=== PATIENT | female | born 1930 | race Hispanic/Latino ===

== ENCOUNTER 2016-06-17 08:41 | Day surgery (SDC) | payer MEDICARE, OTHER ==
[2016-04-23 11:15] VITALS: PULSE 60
[2016-06-10 09:59] VITALS: BMI 22.1
[2016-06-17] MEDS ORDERED: Propofol 10 mg/ml Inj (20 ML) ONE ×2 (10:42→11:14)
[2016-06-17] MEDS ORDERED: Sodium Chloride 0.9% 1,000 ML IV SCH (11:30)
[2016-06-17 11:47] VITALS: TEMP 97.8
[2016-06-17 12:02] VITALS: O2SAT 96
[2016-06-17 12:52] VITALS: BP 141/71; PULSE 70; RESP 18
== END 2016-06-17 13:37 | disposition home or self-care (01) ==
LOC: ENDO 08:41
PROVIDERS: ATTEND Internal Medicine Gastroenterology
DX: Z12.11 Encounter for screening for malignant neoplasm of colon (principal); K62.1 Rectal polyp; K57.30 Diverticulosis of large intestine without perforation or abscess without bleeding; K31.819 Angiodysplasia of stomach and duodenum without bleeding; K29.50 Unspecified chronic gastritis without bleeding; K44.9 Diaphragmatic hernia without obstruction or gangrene; K64.8 Other hemorrhoids; D50.9 Iron deficiency anemia, unspecified; I10 Essential (primary) hypertension; I25.10 Atherosclerotic heart disease of native coronary artery without angina pectoris; Z86.73 Personal history of transient ischemic attack (TIA), and cerebral infarction without residual deficits
CPT/HCPCS: 43239; 45380; 88305; 88342; J2001; J2704; J7040

== ENCOUNTER 2016-06-22 20:22 | Emergency (ER) | payer MEDICARE, OTHER ==
[2016-06-22 20:23] VITALS: PULSE 60; BMI 22.1
--- NOTE | 2016-06-22 22:17 | ED PDOC ---
Arrival/HPI - General Chief Complaint: GI Problem Time Seen by Provider: 06/22/16 21:10 Historian: Patient, Family (Son) - History of Present Illness Narrative History of Present Illness (Text): 06/22/16 22:12 Claudia Pritchett is an 86 year old female, whose past medical history includes GI bleed, CHF, CAD with stent placement, hypertension, COPD, TIA, diabetes, and GERD, who presents to the emergency department accompanied by son complaining of possible dark stool. Patient states her stools today looked dark and became concerned due to her past history of upper GI bleed and gastric ulcer. Son reports patient recently had an upper endoscopy and colonoscopy performed which were normal. The patient denies any fever, chills, chest pain, shortness of breath, abdominal pain, nausea, vomiting, diarrhea, urinary symptoms, back pain , neck pain, headache, dizziness, or any other complaints. Time/Duration: Other (today) Symptom Onset: Gradual Symptom Course: Unchanged Activities at Onset: Rest, Light Context: Home Past Medical History - Provider Review Nursing Documentation Reviewed: Yes - Infectious Disease Hx of Infectious Diseases: None - Reproductive Menopause: Yes - Cardiac Hx Pacemaker: No - Pulmonary Hx Respiratory Disorders: Yes Hx Asthma: Yes Hx Chronic Obstructive Pulmonary Disease (COPD): Yes Hx Emphysema: Yes Hx Pneumonia: Yes - Neurological Hx Paralysis: No - HEENT Hx HEENT Disorder: No - Renal Hx Renal Disorder: No - Endocrine/Metabolic Hx Endocrine Disorders: No - Hematological/Oncological Hx Blood Transfusions: Yes Hx Blood Transfusion Reaction: No - Integumentary Hx Dermatological Disorder: No - Musculoskeletal/Rheumatological Hx Musculoskeletal Disorders: No - Gastrointestinal Hx Gastrointestinal Disorders: Yes Hx Gastroesophageal Reflux: Yes - Genitourinary/Gynecological Hx Genitourinary Disorders: Yes Hx Hematuria: Yes - Psychiatric Hx Emotional Abuse: No Hx Physical Abuse: No Hx Substance Use: No - Past Surgical History Past Surgical History: No Previous - Surgical History Hx Eye Surgery: Yes - Anesthesia Hx Anesthesia Reactions: No Hx Malignant Hyperthermia: No - Suicidal Assessment Feels Threatened In Home Enviroment: No Family/Social History - Physician Review Nursing Documentation Reviewed: Yes Family/Social History: No Known Family HX Smoking Status: Former Smoker Hx Alcohol Use: No Hx Substance Use: No Allergies/Home Meds Allergies/Adverse Reactions: Allergies No Known Allergies Allergy (Verified 04/23/16 11:25) Home Medications: Home Meds Medication Instructions Recorded Confirmed Aspirin [Ecotrin] 81 mg PO DAILY 10/07/15 06/22/16 Atorvastatin Calcium [Lipitor] 20 mg PO DAILY 10/07/15 06/22/16 Furosemide [Lasix] 1 mg PO DAILY 10/07/15 06/22/16 Lisinopril [Zestril] 2.5 mg PO DAILY 12/08/15 06/22/16 Digoxin [Lanoxin] 0.125 mg PO DAILY 04/23/16 06/22/16 Albuterol/Ipratropium [Duoneb 3 1 inh INH Q6 PRN 05/19/16 06/22/16 mg/0.5 mg (3 ml) UD] Montelukast [Singulair] 10 tab PO DAILY 05/19/16 06/22/16 Esomeprazole Magnesium [Nexium] 40 mg PO DAILY 06/17/16 06/22/16 Review of Systems - Physician Review All systems were reviewed & negative as marked: Yes - Review of Systems Constitutional: Normal. absent: Fevers Eyes: Normal ENT: Normal Respiratory: Normal. absent: SOB, Cough Cardiovascular: Normal. absent: Chest Pain Gastrointestinal: Other (+dark stools). absent: Abdominal Pain, Diarrhea, Nausea, Vomiting Genitourinary Female: Normal. absent: Dysuria, Frequency, Hematuria, Urine Output Changes Musculoskeletal: Normal. absent: Back Pain, Neck Pain Skin: Normal. absent: Rash Neurological: Normal. absent: Headache, Dizziness Endocrine: Normal Hemo/Lymphatic: Normal Psychiatric: Normal Physical Exam Vital Signs Reviewed: Yes Vital Signs Pulse Resp BP Pulse Ox 06/22/16 22:46 72 16 169/74 H 94 L Temperature: Afebrile Blood Pressure: Hypertensive Pulse: Regular Respiratory Rate: Normal Appearance: Positive for: Well-Appearing, Non-Toxic, Comfortable Pain Distress: None Mental Status: Positive for: Alert and Oriented X 3 - Systems Exam Head: Present: Atraumatic, Normocephalic Pupils: Present: PERRL Extroacular Muscles: Present: EOMI Conjunctiva: Present: Normal Mouth: Present: Moist Mucous Membranes Neck: Present: Normal Range of Motion Respiratory/Chest: Present: Clear to Auscultation, Good Air Exchange. No: Respiratory Distress, Accessory Muscle Use Cardiovascular: Present: Regular Rate and Rhythm, Normal S1, S2. No: Murmurs Abdomen: Present: Normal Bowel Sounds. No: Tenderness, Distention, Peritoneal Signs Rectal: Present: Other (Brown stool Guaiac negative). No: Occult Blood, Rectal Tenderness, Gross Blood, Hemorrhoids Back: Present: Normal Inspection Upper Extremity: Present: Normal Inspection. No: Cyanosis, Edema Lower Extremity: Present: Normal Inspection. No: Edema Neurological: Present: GCS=15, CN II-XII Intact, Speech Normal Skin: Present: Warm, Dry, Normal Color. No: Rashes Psychiatric: Present: Alert, Oriented x 3, Normal Insight, Normal Concentration Medical Decision Making ED Course and Treatment: 06/22/16 22:12 Impression: 86 year old female complaining of dark stools. Differential Diagnosis included but are not limited to: Plan: -- Labs -- Reassess and disposition Prior Visits: Notes and results from previous visits were reviewed. On 04/23/2016, pt was seen in the ED for 1 episode of dark, black stool and discharged home. Progress Notes: - Lab Interpretations Lab Results: 06/22/16 22:40 Lab Results 06/22/16 22:40: WBC 7.3 D, RBC 3.96, Hgb 12.3, Hct 37.6, MCV 94.9, MCH 31.1, MCHC 32.7, RDW 13.2, Plt Count 200, MPV 11.3 H 06/22/16 22:40: PT 11.9 H, INR 1.10 H, APTT 26.8 I have reviewed the lab results: Yes - Scribe Statement The provider has reviewed the documentation as recorded by the Tyesha Montgomery Provider Attestation: All medical record entries made by the Trixieibsyed were at my direction and personally dictated by me. I have reviewed the chart and agree that the record accurately reflects my personal performance of the history, physical exam, medical decision making, and the department course for this patient. I have also personally directed, reviewed, and agree with the discharge instructions and disposition. Disposition/Present on Arrival - Present on Arrival Any Indicators Present on Arrival: No History of DVT/PE: No History of Uncontrolled Diabetes: No Urinary Catheter: No History of Decub. Ulcer: No History Surgical Site Infection Following: None - Disposition Have Diagnosis and Disposition been Completed?: Yes Diagnosis: Normal exam Disposition: HOME/ ROUTINE Disposition Time: 23:57 Patient Plan: Discharge Patient Problems: Current Active Problems Problem Status Onset Normal exam Acute Condition: GOOD Discharge Instructions (ExitCare): Normal Exam (ED) Additional Instructions: Follow up with your doctor this week Referrals: Pascual Sierra MD [Primary Care Provider] - Follow up with primary
[2016-06-22 22:47] VITALS: PULSE 72; RESP 16
[2016-06-22 23:03] LABS: HEMATOCRIT 37.6 % (36.0-48.0); MEAN CELL VOLUME 94.9 fL (80.0-105.0); MEAN CORPUSCULAR HEMOGLOBIN 31.1 pg (25.0-35.0); MEAN CORPUSCULAR HGB CONC 32.7 g/dl (31.0-37.0); MEAN PLATELET VOLUME 11.3 fl (7.0-11.0); RED CELL DISTRIBUTION WIDTH 13.2 % (11.5-14.5); WHITE BLOOD COUNT 7.3 10^3/ul (4.5-11.0)
[2016-06-22 23:28] LABS: INR 1.1 (0.93-1.08); PARTIAL THROMBOPLASTIN TIME 26.8 Seconds (23.7-30.8)
[2016-06-23] MEDS ORDERED: Albuterol-Ipratrop 3 mg / 0.5 (3 ml) UD ONE (00:10)
[2016-06-23 01:27] VITALS: BP 163/84; O2SAT 95
== END 2016-06-23 01:28 | disposition home or self-care (01) ==
LOC: ED 20:22
DX: Z00.00 Encounter for general adult medical examination without abnormal findings (principal); I25.10 Atherosclerotic heart disease of native coronary artery without angina pectoris; I10 Essential (primary) hypertension; Z87.891 Personal history of nicotine dependence

== ENCOUNTER 2016-07-29 13:05 | Emergency (ER) | payer MEDICARE ==
[2016-07-29 13:05] VITALS: PULSE 60; BMI 22.1
--- NOTE | 2016-07-29 13:48 | ED PDOC ---
Arrival/HPI - General Chief Complaint: Upper Extremity Problem/Injury Time Seen by Provider: 07/29/16 13:27 - History of Present Illness Narrative History of Present Illness (Text): 07/29/16 13:50 86 y/o F w/ PMHx of Asthma, COPD, Emphysema, and GERD presents to the ED c/o R shoulder pain. Pt states pain started in May after cleaning her house. Pt was told by her PMD to get a Cortisol injection. Pt believes the person was incompetent b/c pain has increased since the injection. Pt reports decreased ROM in shoulder w/ no problems in the elbow or wrist. Pt came to the ED specifically to receive a cortisol injection. On presentation to triage, pt was SOB. Pt states the heat makes her SOB. Pt denies CP, palpitations, pre-syncope. pt admits to chronic cough w/ clear sputum production. (Meg Scales) Past Medical History - Provider Review Nursing Documentation Reviewed: Yes - Infectious Disease Hx of Infectious Diseases: None - Cardiac Hx Pacemaker: No - Pulmonary Hx Respiratory Disorders: Yes Hx Asthma: Yes Hx Chronic Obstructive Pulmonary Disease (COPD): Yes Hx Emphysema: Yes Hx Pneumonia: Yes - Neurological Hx Paralysis: No - HEENT Hx HEENT Disorder: No - Renal Hx Renal Disorder: No - Endocrine/Metabolic Hx Endocrine Disorders: No - Hematological/Oncological Hx Blood Transfusions: Yes Hx Blood Transfusion Reaction: No - Integumentary Hx Dermatological Disorder: No - Musculoskeletal/Rheumatological Hx Musculoskeletal Disorders: No - Gastrointestinal Hx Gastrointestinal Disorders: Yes Hx Gastroesophageal Reflux: Yes - Genitourinary/Gynecological Hx Genitourinary Disorders: Yes Hx Hematuria: Yes - Psychiatric Hx Emotional Abuse: No Hx Physical Abuse: No Hx Substance Use: No - Past Surgical History Past Surgical History: No Previous - Surgical History Hx Eye Surgery: Yes - Anesthesia Hx Anesthesia Reactions: No Hx Malignant Hyperthermia: No - Suicidal Assessment Feels Threatened In Home Enviroment: No Family/Social History - Physician Review Nursing Documentation Reviewed: Yes Family/Social History: No Known Family HX Smoking Status: Former Smoker Hx Alcohol Use: No Hx Substance Use: No Allergies/Home Meds Allergies/Adverse Reactions: Allergies No Known Allergies Allergy (Verified 04/23/16 11:25) Home Medications: Home Meds Medication Instructions Recorded Confirmed Aspirin [Ecotrin] 81 mg PO DAILY 10/07/15 06/22/16 Atorvastatin Calcium [Lipitor] 20 mg PO DAILY 10/07/15 06/22/16 Furosemide [Lasix] 1 mg PO DAILY 10/07/15 06/22/16 Lisinopril [Zestril] 2.5 mg PO DAILY 12/08/15 06/22/16 Digoxin [Lanoxin] 0.125 mg PO DAILY 04/23/16 06/22/16 Albuterol/Ipratropium [Duoneb 3 1 inh INH Q6 PRN 05/19/16 06/22/16 mg/0.5 mg (3 ml) UD] Montelukast [Singulair] 10 tab PO DAILY 05/19/16 06/22/16 Esomeprazole Magnesium [Nexium] 40 mg PO DAILY 06/17/16 06/22/16 Review of Systems - Review of Systems Constitutional: absent: Fevers Cardiovascular: absent: Chest Pain Physical Exam Vital Signs Reviewed: Yes Temperature: Afebrile Blood Pressure: Normal Pulse: Tachycardic Respiratory Rate: Normal Appearance: Positive for: Well-Appearing, Comfortable Pain Distress: None Mental Status: Positive for: Alert and Oriented X 3 - Systems Exam Head: Present: Atraumatic, Normocephalic Pupils: Present: PERRL Extroacular Muscles: Present: EOMI Mouth: Present: Moist Mucous Membranes Neck: Present: Normal Range of Motion Respiratory/Chest: Present: Clear to Auscultation, Good Air Exchange. No: Respiratory Distress, Accessory Muscle Use Cardiovascular: Present: Regular Rate and Rhythm, Normal S1, S2. No: Murmurs Back: Present: Other (kyphosis) Upper Extremity: Present: Other (decreased ROM in flexion, extension, abduction of R shoulder) Lower Extremity: Present: Normal Inspection Neurological: Present: GCS=15, Speech Normal Skin: Present: Warm, Dry, Normal Color Psychiatric: Present: Alert, Oriented x 3, Normal Insight, Normal Concentration Vital Signs Temp Pulse Resp BP Pulse Ox 07/29/16 14:17 98 H 18 116/65 95 07/29/16 13:11 97.6 F 105 H 18 114/66 96 Medical Decision Making - RAD Interpretation Skinner Pelts: Radiologist (negative for fracture of dislocation.) ED Course and Treatment: Patient Seen With Resident: In agreement with resident note. Patient was seen and evaluated with resident, came up with plan and treatment together.. (Sunny Flores) 07/29/16 13:59 86 y/o F w/ R shoulder pain and COPD w/ chronic cough - Duoneb - R shoulder Xray - Tylenol 07/29/16 14:55 Pt stated Sx unchanged. No improvement in pain or cough w/ Tx provided. Shoulder XR negative for fracture or dislocation. 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 Pt not asking for any further pain medication. Referral for orthopedics provided Pt cleared for discharge w/ instructions to follow up with PMD w/in 1 week. (Meg Scales) - RAD Interpretation Radiology Orders: 07/29/16 13:49 SHOULDER RIGHT [RAD] Stat - Medication Orders Current Medication Orders: Discontinued Medications Acetaminophen (Tylenol 325mg Tab) 650 mg PO STAT STA Stop: 07/29/16 14:02 Last Admin: 07/29/16 14:44 Dose: 650 mg Albuterol/Ipratropium (Duoneb 3 Mg/0.5 Mg (3 Ml) Ud) 3 ml IH STAT STA Stop: 07/29/16 13:50 Last Admin: 07/29/16 14:32 Dose: 3 ml Disposition/Present on Arrival - Present on Arrival Any Indicators Present on Arrival: No History of DVT/PE: No History of Uncontrolled Diabetes: No Urinary Catheter: No History of Decub. Ulcer: No History Surgical Site Infection Following: None - Disposition Have Diagnosis and Disposition been Completed?: Yes Disposition Time: 15:25 Patient Plan: Discharge - Disposition Diagnosis: Chronic right shoulder pain Disposition: HOME/ ROUTINE Condition: GOOD Discharge Instructions (ExitCare): Osteoarthritis (ED), RICE Therapy (ED) Additional Instructions: follow up within 1 week with primary medical doctor return to ED with any new or worsening symptoms. Referrals: Pascual Sierra MD [Primary Care Provider] - Follow up with primary Anant Cruz MD [Staff Provider] - Follow up with primary [facility] [Outside] - Follow up with primary
[2016-07-29] MEDS ORDERED: Albuterol-Ipratrop 3 mg / 0.5 (3 ml) UD IH STA (13:49)
--- NOTE | 2016-07-29 14:54 | RAD ---
PROCEDURE: Radiographs of the Right Shoulder HISTORY: pain; decreased ROM COMPARISON: No prior. FINDINGS: BONES: There is no acute fracture or bone destruction. There is diffuse bone demineralization. JOINTS: Mild degenerative osteoarthritis. SOFT TISSUES: Normal. OTHER FINDINGS: None. IMPRESSION: No acute fracture or dislocation. Mild degenerative osteoarthrosis in the acromioclavicular and glenohumeral joints.
[2016-07-29 15:07] VITALS: O2SAT 96
[2016-07-29] MEDS ORDERED: Oxycodone/Acetaminophen 5/325 mg Tab PO STA (15:07)
[2016-07-29 15:25] VITALS: BP 110/50; RESP 16; TEMP 98.9
[2016-07-29 15:43] VITALS: PULSE 70
--- NOTE | 2016-07-29 22:26 | CARD ---
APPROVED REPORT EKG Measurement Heart [id number] <Conclusion> Sinus tachycardia Nonspecific ST abnormality Abnormal ECG
== END 2016-07-29 15:42 | disposition home or self-care (01) ==
LOC: ED 13:05
DX: M25.511 Pain in right shoulder (principal); G89.29 Other chronic pain

== ENCOUNTER 2016-12-26 10:26 | Inpatient (IN) | payer MEDICARE, OTHER ==
[2016-12-26 10:34] VITALS: BMI 21.9
--- NOTE | 2016-12-26 10:51 | ED PDOC ---
Arrival/HPI - General Chief Complaint: Respiratory Distress Time Seen by Provider: 12/26/16 10:30 Historian: Patient - History of Present Illness Narrative History of Present Illness (Text): 12/26/16 10:48 An 86 year old female, whose past medical history includes Asthma, COPD, Emphysema, and GERD, presents to the emergency department via EMS with shortness of breath since this morning. Patient received SOLU-Medrol and nebulizer in route to hospital. The patient notes that she has been coughing up white phlegm. The patient denies fevers, chills, headache, dizziness, chest pain , dyspnea on exertion, abdominal pain, nausea, vomiting, diarrhea, back pain, neck pain, urinary/bowel changes, or any other complaint. PMD: Dr. Garner Time/Duration: Other (This Morning) Symptom Onset: Sudden Symptom Course: Unchanged Activities at Onset: Rest, Light Context: Home Past Medical History - Provider Review Nursing Documentation Reviewed: Yes - Infectious Disease Hx of Infectious Diseases: None - Reproductive Menopause: Yes - Cardiac Hx Hypertension: Yes Hx Pacemaker: No - Pulmonary Hx Respiratory Disorders: Yes Hx Asthma: Yes Hx Chronic Obstructive Pulmonary Disease (COPD): Yes Hx Emphysema: Yes Hx Pneumonia: Yes - Neurological Hx Paralysis: No - HEENT Hx HEENT Disorder: No - Renal Hx Renal Disorder: No - Endocrine/Metabolic Hx Endocrine Disorders: No - Hematological/Oncological Hx Blood Transfusions: Yes Hx Blood Transfusion Reaction: No - Integumentary Hx Dermatological Disorder: No - Musculoskeletal/Rheumatological Hx Musculoskeletal Disorders: No - Gastrointestinal Hx Gastrointestinal Disorders: Yes Hx Gastroesophageal Reflux: Yes - Genitourinary/Gynecological Hx Genitourinary Disorders: Yes Hx Hematuria: Yes - Psychiatric Hx Emotional Abuse: No Hx Physical Abuse: No Hx Substance Use: No - Past Surgical History Past Surgical History: No Previous - Surgical History Hx Eye Surgery: Yes - Anesthesia Hx Anesthesia: No Hx Anesthesia Reactions: No Hx Malignant Hyperthermia: No - Suicidal Assessment Feels Threatened In Home Enviroment: No Family/Social History - Physician Review Nursing Documentation Reviewed: Yes Family/Social History: No Known Family HX Smoking Status: Former Smoker Hx Alcohol Use: No Hx Substance Use: No Allergies/Home Meds Allergies/Adverse Reactions: Allergies No Known Allergies Allergy (Verified 12/26/16 10:41) Home Medications: Home Meds Medication Instructions Recorded Confirmed Aspirin [Ecotrin] 81 mg PO DAILY 10/07/15 12/26/16 Atorvastatin Calcium [Lipitor] 20 mg PO DIN 10/07/15 12/26/16 Furosemide [Lasix] 20 mg PO DAILY 10/07/15 12/26/16 Digoxin [Lanoxin] 0.125 mg PO DAILY 04/23/16 12/26/16 Albuterol/Ipratropium [Duoneb 3 1 inh INH Q6 PRN 05/19/16 12/26/16 mg/0.5 mg (3 ml) UD] Montelukast [Singulair] 10 tab PO DAILY 05/19/16 12/26/16 Glimepiride [Amaryl] 1 mg PO DAILY 12/26/16 12/26/16 Pantoprazole [Protonix EC Tab] 40 mg PO DAILY 12/26/16 12/26/16 Review of Systems - Physician Review All systems were reviewed & negative as marked: Yes - Review of Systems Constitutional: absent: Fevers, Night Sweats ENT: absent: Sore Throat Respiratory: SOB, Cough, Sputum (White sputum ) Cardiovascular: absent: Chest Pain, BANKS Gastrointestinal: absent: Abdominal Pain, Stool Changes, Diarrhea, Nausea, Vomiting Genitourinary Female: absent: Urine Output Changes Musculoskeletal: absent: Back Pain, Neck Pain Neurological: absent: Headache, Dizziness Physical Exam Vital Signs Reviewed: Yes Vital Signs Temp Pulse Resp BP Pulse Ox 12/26/16 11:04 18 12/26/16 10:40 98.1 F 78 18 121/65 95 Temperature: Afebrile Blood Pressure: Normal Pulse: Regular Respiratory Rate: Normal Appearance: Positive for: Well-Appearing, Non-Toxic, Comfortable Pain Distress: None Mental Status: Positive for: Alert and Oriented X 3 - Systems Exam Head: Present: Atraumatic, Normocephalic Pupils: Present: PERRL Extroacular Muscles: Present: EOMI Conjunctiva: Present: Normal Mouth: Present: Moist Mucous Membranes Neck: Present: Normal Range of Motion Respiratory/Chest: Present: Decreased Breath Sounds (Diminished breath sounds bilaterally) Cardiovascular: Present: Regular Rate and Rhythm, Normal S1, S2. No: Murmurs Abdomen: Present: Normal Bowel Sounds. No: Tenderness, Distention, Peritoneal Signs Back: Present: Normal Inspection Upper Extremity: Present: Normal Inspection. No: Cyanosis, Edema Lower Extremity: Present: Normal Inspection. No: Edema Neurological: Present: GCS=15, CN II-XII Intact, Speech Normal Skin: Present: Warm, Dry, Normal Color. No: Rashes Psychiatric: Present: Alert, Oriented x 3, Normal Insight, Normal Concentration Medical Decision Making ED Course and Treatment: 12/26/16 10:54 Impression: An 85 year old female presents to the emergency department for shortness of breath since this morning. Plan: -- EKG -- Chest X-ray -- Labs -- Urinalysis -- Duoneb -- Reassess and disposition Prior Visits: Notes and results from previous visits were reviewed. Patient was last seen in the emergency department on 07/29/2016 for right shoulder pain. The patient was discharged home and advised to follow up with her PMD. Progress Notes: EKG: Ordered, reviewed, and independently interpreted the EKG. Rate : 81 BPM Rhythm : NSR Interpretation : PVCs CHEST X-RAY Dictator : Chadd Crabtree MD Report Date : 12/26/2016 11:14:41 IMPRESSION: No active disease. Hiatal hernia 12/26/16 11:34 la mildly elevated, does not meet sirs criteria, not code sepsis. pt states symptosm improving but persistent. pt persistently dimnished, wiht wheezing, needs iv steriods, admission. dr flores, covering dr herrera accepts - Lab Interpretations Lab Results: 12/26/16 10:51 12/26/16 10:51 Lab Results 12/26/16 10:51: pO2 26 L, VBG pH 7.34, VBG pCO2 65.0 H, VBG HCO3 35.1 H, VBG Total CO2 37.1 H, VBG O2 Sat (Calc) 49.2, VBG Base Excess 7.0 H, VBG Potassium 4.0, Sodium 144.0, Chloride 105.0, Glucose 152 H, Lactate 2.7 H, FiO2 21.0, Venous Blood Potassium 4.0 12/26/16 10:51: Sodium 144, Chloride 103, Potassium 4.1, Carbon Dioxide 34 H, Anion Gap 11, BUN 21, Creatinine 0.8, Est GFR ( Amer) > 60, Est GFR (Non- Af Amer) > 60, Random Glucose 152 H, Calcium 9.9, Magnesium 2.1, Total Bilirubin 0.9, AST 25, ALT 30, Alkaline Phosphatase 113, Lactate Dehydrogenase 407, Total Creatine Kinase 28 L, Troponin I < 0.01, NT-Pro-B Natriuret Pep 99.9 , Total Protein 7.0, Albumin 4.0, Globulin 3.0, Albumin/Globulin Ratio 1.3 12/26/16 10:51: PT 11.8, INR 1.07, APTT 30.0 12/26/16 10:51: WBC 7.0, RBC 4.43, Hgb 14.2, Hct 43.1, MCV 97.3, MCH 32.1, MCHC 32.9, RDW 12.7, Plt Count 171, MPV 12.1 H, Gran % 46.8 L, Lymph % (Auto) 35.8 H , [place] % (Auto) 8.4 H, Eos % (Auto) 8.4 H, Baso % (Auto) 0.6, Gran # 3.29, Lymph # 2.5, [place] # 0.6, Eos # 0.6, Baso # 0.04 12/26/16 10:51: Digoxin 1.2 I have reviewed the lab results: Yes - RAD Interpretation Radiology Orders: 12/26/16 10:43 CHEST PORTABLE [RAD] Stat - EKG Interpretation Interpreted by ED Physician: Yes Type: 12 lead EKG - Medication Orders Current Medication Orders: Acetaminophen (Tylenol 325mg Tab) 325 mg PO Q6H PRN PRN Reason: Pain, Mild (1-3) Albuterol/Ipratropium (Duoneb 3 Mg/0.5 Mg (3 Ml) Ud) 3 ml IH [id number] CATHLEEN Albuterol/Ipratropium (Duoneb 3 Mg/0.5 Mg (3 Ml) Ud) 3 ml IH Q2H PRN PRN Reason: Shortness of Breath Aspirin (Ecotrin) 81 mg PO DAILY CATHLEEN Atorvastatin Calcium (Lipitor) 20 mg PO DIN CATHLEEN Azithromycin (Zithromax) 250 mg PO DAILY CATHLEEN PRN Reason: Protocol Stop: 12/31/16 10:01 Benzonatate (Tessalon Perles) 100 mg PO TID PRN PRN Reason: Cough Digoxin (Lanoxin) 0.125 mg PO DAILY@1400 CATHLEEN Furosemide (Lasix) 20 mg PO DAILY CATHLEEN Insulin Human Lispro (Humalog Low) 0 units SC ACHS CATHLEEN PRN Reason: Protocol Pantoprazole Sodium (Protonix Ec Tab) 40 mg PO ACB CATHLEEN Prednisone (Prednisone Tab) 40 mg PO BID CATHLEEN Discontinued Medications Albuterol/Ipratropium (Duoneb 3 Mg/0.5 Mg (3 Ml) Ud) 3 ml IH Q15M CATHLEEN Stop: 12/26/16 11:16 Last Admin: 12/26/16 11:18 Dose: 3 ml Azithromycin (Zithromax) 500 mg PO ONCE ONE Stop: 12/26/16 13:46 - Scribe Statement The provider has reviewed the documentation as recorded by the Tyesha Hunt Provider Scribe Attestation: All medical record entries made by the Scribe were at my direction and personally dictated by me. I have reviewed the chart and agree that the record accurately reflects my personal performance of the history, physical exam, medical decision making, and the department course for this patient. I have also personally directed, reviewed, and agree with the discharge instructions and disposition. Disposition/Present on Arrival - Present on Arrival Any Indicators Present on Arrival: No History of DVT/PE: No History of Uncontrolled Diabetes: No Urinary Catheter: No History of Decub. Ulcer: No History Surgical Site Infection Following: None - Disposition Have Diagnosis and Disposition been Completed?: Yes Diagnosis: COPD exacerbation Disposition: HOSPITALIZED Disposition Time: 11:36 Patient Problems: Current Active Problems Problem Status Onset COPD exacerbation Acute Condition: FAIR
[2016-12-26] MEDS: Albuterol-Ipratrop 3 mg / 0.5 (3 ml) UD IH SCH ×5 (10:54→18:59)
[2016-12-26 10:59] LABS: BASO # 0.04 K/mm3 (0.0-2.0); BASO % 0.6 % (0.0-3.0); EOS # 0.6 (0.0-0.7); EOS % 8.4 % (1.5-5.0); GRAN # 3.29 (1.4-6.5); GRAN % 46.8 % (50.0-68.0); HEMATOCRIT 43.1 % (36.0-48.0); LYMPH # 2.5 (1.2-3.4); LYMPH % 35.8 % (22.0-35.0); MEAN CELL VOLUME 97.3 fl (80.0-105.0); MEAN CORPUSCULAR HEMOGLOBIN 32.1 pg (25.0-35.0); MEAN CORPUSCULAR HGB CONC 32.9 g/dl (31.0-37.0); MEAN PLATELET VOLUME 12.1 fl (7.0-11.0); MONO # 0.6 (0.1-0.6); MONO % 8.4 % (1.0-6.0); RED CELL DISTRIBUTION WIDTH 12.7 % (11.5-14.5)
[2016-12-26 11:00] LABS: VENOUS BLOOD PH 7.34 (7.32-7.43)
[2016-12-26 11:12] LABS: INR 1.07 (0.93-1.08)
[2016-12-26 11:13] LABS: ALB/GLOB RATIO 1.3 (1.1-1.8); ALKALINE PHOSPHATASE 113 U/L (38-126); ALT/SGPT 30 U/L (7-56); AST/SGOT 25 U/L (14-36); BILIRUBIN,TOTAL 0.9 mg/dL (0.2-1.3); BLOOD UREA NITROGEN 21 mg/dL (7-21); CALCIUM 9.9 mg/dL (8.4-10.5); CARBON DIOXIDE 34 mmol/L (21-33); CHLORIDE 103 mmol/L (98-107); GFR AFRICAN-AMERICAN > 60; GLUCOSE,RANDOM 152 mg/dL (70-110); MAGNESIUM 2.1 mg/dL (1.7-2.2); POTASSIUM 4.1 mmol/L (3.6-5.0); SODIUM 144 mmol/L (132-148)
--- NOTE | 2016-12-26 11:16 | RAD ---
HISTORY: sob COMPARISON: 02/28/2016 FINDINGS: LUNGS: No active pulmonary disease. PLEURA: No significant pleural effusion identified, no pneumothorax apparent. CARDIOVASCULAR: Normal. OSSEOUS STRUCTURES: No significant abnormalities. VISUALIZED UPPER ABDOMEN: There is a moderate to large hiatal hernia measuring 8.3 cm in diameter OTHER FINDINGS: None. IMPRESSION: No active disease. Hiatal hernia
[2016-12-26 11:25] LABS: TROPONIN I < 0.01 ng/mL
[2016-12-26 14:14] LABS: ARTERIAL BLOOD GAS HCO3 30.6 mmol/L (21-28); ARTERIAL BLOOD GAS PH 7.47 (7.35-7.45)
[2016-12-26 14:53] LABS: PH,URINE 5.5 (4.7-8.0); URINE BILIRUBIN NEGATIVE (NEGATIVE); URINE BLOOD TRACE-INTACT (NEGATIVE); URINE GLUCOSE (UA) 100 mg/dL (NEGATIVE); URINE KETONE TRACE mg/dL (NEGATIVE); URINE LEUKOCYTE ESTERASE SMALL Leu/uL (NEGATIVE); URINE PROTEIN TRACE mg/dL (<30 mg/dL); URINE UROBILINOGEN 0.2 E.U./dL (<1 E.U./dL)
--- NOTE | 2016-12-26 15:00 | CP.PCM.HP ---
<Aroldo Holt - Last Filed: 12/26/16 14:54> History of Present Illness - History of Present Illness History of Present Illness: CC: SOB HPI: Pt is a 86 y/o female w/ a PMHx of COPD, CHF, emphysema, asthma, and GERD comes in c/o SOB which started earlier this morning while at home. Patient reports while administering a nebulizer treatment the patient began to experience her symptoms. Patient reports leading up to this AM she felt asymptomatic. Of note in route to hospital patient recieved a duoneb treatment and one time dose of steroids. Patient reports at time of interview improvement in her symptoms from onset. Patient indicates she is compliant with her medications. Patient reports one previous history of COPD exacerbation with in the past 2 years. She denies ever requiring intubation for her respiratory disease. Pt states that the SOB has been intermittent and resolves on it's own w/ rest. Pt also c/o a chronic productive cough w/ white sputum. Pt denies any CP, fever, chills, nausea, vomiting, constipation, diarrhea, hematemesis, hematuria, dizziness, recent trauma, recent illnesses or anxiety. Pt also states that she lives in a elderly home, and thus, is often exposed to sick contacts. PMD: Dr. Mariela Garner PMHx: Asthma, Emphysema, COPD, IA. CHF, Hiatal hernia, GERD, DM II PSHx: EGD and Colonoscopy w/ biopsy Social History: Pt denies any illicit drug use or EtOH use. Pt used to smoke 3 PPD, but quit smoking 11 years ago. Pt smoked for 54 years Meds: Gimperide, Furosemide, Atorvastatin, Protonix, Digoxin, Monteleukast, ASA , Duoneb Allergies: NKDA Present on Admission - Present on Admission Any Indicators Present on Admission: No Review of Systems - Review of Systems Review of Systems: 12 point review of systems benign other than mentioned in HPI Past Patient History - Infectious Disease Hx of Infectious Diseases: None - Past Social History Smoking Status: Former Smoker Alcohol: None Drugs: Denies - CARDIAC Hx Hypertension: Yes Hx Pacemaker: No - PULMONARY Hx Respiratory Disorders: Yes Hx Asthma: Yes Hx Chronic Obstructive Pulmonary Disease (COPD): Yes Hx Emphysema: Yes Hx Pneumonia: Yes - NEUROLOGICAL Hx Paralysis: No - HEENT Hx HEENT Problems: No - RENAL Hx Chronic Kidney Disease: No - ENDOCRINE/METABOLIC Hx Endocrine Disorders: No - HEMATOLOGICAL/ONCOLOGICAL Hx Blood Transfusions: Yes Hx Blood Transfusion Reaction: No - INTEGUMENTARY Hx Dermatological Problems: No - MUSCULOSKELETAL/RHEUMATOLOGICAL Hx Musculoskeletal Disorders: No - GASTROINTESTINAL Hx Gastrointestinal Disorders: Yes Hx Gastroesophageal Reflux: Yes - GENITOURINARY/GYNECOLOGICAL Hx Genitourinary Disorders: Yes Hx Hematuria: Yes - PSYCHIATRIC Hx Emotional Abuse: No Hx Physical Abuse: No Hx Substance Use: No - SURGICAL HISTORY Hx Eye Surgery: Yes - ANESTHESIA Hx Anesthesia: No Hx Anesthesia Reactions: No Hx Malignant Hyperthermia: No Meds Allergies/Adverse Reactions: Allergies Allergy/AdvReac Type Severity Reaction Status Date / Time No Known Allergies Allergy Verified 12/26/16 10:41 Physical Exam - Constitutional Appears: Well Additional comments: Pt appears stated age, no acute distress, speaking in full sentences requiring no supplemental O2 with O2 sat >89% - Head Exam Head Exam: ATRAUMATIC, NORMAL INSPECTION - Eye Exam Eye Exam: EOMI, PERRL - ENT Exam ENT Exam: Mucous Membranes Dry - Neck Exam Neck exam: Positive for: Full Rom. Negative for: Lymphadenopathy - Respiratory Exam Respiratory Exam: Decreased Breath Sounds, Rhonchi (miminal left sided), NORMAL BREATHING PATTERN. absent: Prolonged Expiratory Phase, Wheezes, Respiratory Distress - Cardiovascular Exam Cardiovascular Exam: REGULAR RHYTHM, +S1, +S2. absent: JVD, Systolic Murmur - GI/Abdominal Exam GI & Abdominal Exam: Normal Bowel Sounds, Soft. absent: Guarding, Mass, Tenderness - Extremities Exam Extremities exam: Positive for: full ROM, normal inspection, pedal pulses present. Negative for: calf tenderness, pedal edema - Back Exam Back exam: NORMAL INSPECTION. absent: CVA tenderness (L), CVA tenderness (R) - Neurological Exam Neurological exam: Alert, CN II-XII Intact, Oriented x3 - Psychiatric Exam Psychiatric exam: Normal Affect, Normal Mood - Skin Skin Exam: Dry, Intact, Normal Color, Warm Results - Vital Signs Recent Vital Signs: Last Vital Signs Temp 98.1 F 12/26/16 14:29 Pulse 92 H 12/26/16 14:29 Resp 18 12/26/16 14:29 BP 142/71 12/26/16 14:29 Pulse Ox 96 12/26/16 14:29 - Labs Result Diagrams: 12/26/16 10:51 12/26/16 10:51 Labs: Laboratory Results - last 24 hr 12/26/16 14:12 pCO2 42 pO2 55.0 L HCO3 30.6 H ABG pH 7.47 H ABG Total CO2 31.9 H ABG O2 Saturation 94.2 L ABG Base Excess 6.2 H ABG Potassium 3.0 L Sodium 142.0 Chloride 106.0 Glucose 279 H Lactate 1.8 FiO2 21.0 Arterial Blood Potassium 3.0 L Assessment & Plan - Assessment and Plan (Free Text) Assessment: Patient is a 86 year old female with PMH sig for CAD s/p stenet, COPD, TIA, DM2 , GERD, and CHF who presents to [facility] via EMS complaining of shortness of breath. Patient is evaluated to have COPD exacerbation with elevation of lactic acid. Patient is admitted for observation. Plan: 1. COPD exacerbation - Hx of COPD, Afebrile, productive white phlegm, no leukocytosis. elevated lactate - Patient compliant with medications at home - Duoneb Q6H and PRN - Solumedrol IV 40mg BID - Azithromycin - tessalon pearls prn cough - O2 NC 2L prn with goal SaO2 88-92% - Repeat ABG with shock panel 2. DM2 - Holding home meds - ISS low - ACHS 3. Hx CAD s/p stents - Aspirin 81mg - Statin 4. GERD - Protonix GI PPX: Protonix DVT ppx: SCDs Case and plan discussed with attending - Date & Time Date: 12/26/16 Time: 14:56 <Garfield Antunez - Last Filed: 12/26/16 15:18> Results - Vital Signs Recent Vital Signs: Last Vital Signs Temp 98.1 F 12/26/16 14:29 Pulse 92 H 12/26/16 14:29 Resp 18 12/26/16 14:29 BP 142/71 12/26/16 14:29 Pulse Ox 96 12/26/16 14:29 - Labs Result Diagrams: 12/26/16 10:51 12/26/16 10:51 Labs: Laboratory Results - last 24 hr 12/26/16 12/26/16 14:12 14:40 pCO2 42 pO2 55.0 L HCO3 30.6 H ABG pH 7.47 H ABG Total CO2 31.9 H ABG O2 Saturation 94.2 L ABG Base Excess 6.2 H ABG Potassium 3.0 L Sodium 142.0 Chloride 106.0 Glucose 279 H Lactate 1.8 FiO2 21.0 Arterial Blood Potassium 3.0 L Urine Color Yellow Urine Appearance Sl cloudy Urine pH 5.5 Ur Specific [place] 1.025 Urine Protein Trace H Urine Glucose (UA) 100 H Urine Ketones Trace H Urine Blood Trace-intact H Urine Nitrate Negative Urine Bilirubin Negative Urine Urobilinogen 0.2 Ur Leukocyte Esterase Small H Urine RBC 0 - 2 Urine WBC 5 - 10 Ur Epithelial Cells 6 - 8 Urine Bacteria Few Attending/Attestation - Attestation I have personally seen and examined this patient.: Yes I have fully participated in the care of the patient.: Yes I have reviewed all pertinent clinical information: Yes Notes (Text): 12/26/16 15:16 86 year old female with past medical history of CAD, COPD and diabetes who presents with COPD exacerbation. Continue with iv steroids, duonebs, azithromycin and tessalon perles. VBG was reviewed. ABG is ordered. Continue with insulin ss for diabetes. Continue with aspirin and statin for history of CAD. Family is at bedside and questions were answered. Garfield Antunez MD Hospitalist.
[2016-12-26 15:07] LABS: URINE APPEARANCE SL CLOUDY (CLEAR); URINE COLOR YELLOW (YELLOW)
[2016-12-26 15:08] LABS: URINE BACTERIA FEW (NEG); URINE RBC 0 - 2 /hpf (0-2)
--- NOTE | 2016-12-26 15:35 | CARD ---
APPROVED REPORT EKG Measurement Heart [id number] <Conclusion> Sinus rhythm with premature. PVC. Otherwise normal ECG
[2016-12-26] MEDS: MethylPREDNISolone 40 mg Vial IVP SCH (17:25)
[2016-12-26] MEDS: Insulin Lispro (humaLOG) LOW Coverage SC SCH ×2 (17:29→22:10)
[2016-12-27] MEDS: Albuterol-Ipratrop 3 mg / 0.5 (3 ml) UD IH PRN ×2 (00:39→05:11)
[2016-12-27] MEDS: Albuterol-Ipratrop 3 mg / 0.5 (3 ml) UD IH SCH ×4 (01:14→20:00)
[2016-12-27 06:31] VITALS: RESP 20
[2016-12-27 07:13] LABS: BASO # 0.01 K/mm3 (0.0-2.0); BASO % 0.1 % (0.0-3.0); EOS % 0.3 % (1.5-5.0); GRAN # 6.54 (1.4-6.5); GRAN % 72.2 % (50.0-68.0); HEMATOCRIT 38.3 % (36.0-48.0); LYMPH # 1.8 (1.2-3.4); LYMPH % 19.4 % (22.0-35.0); MEAN CELL VOLUME 96.5 fl (80.0-105.0); MEAN CORPUSCULAR HEMOGLOBIN 31.5 pg (25.0-35.0); MEAN CORPUSCULAR HGB CONC 32.6 g/dl (31.0-37.0); MEAN PLATELET VOLUME 11.8 fl (7.0-11.0); MONO # 0.7 (0.1-0.6); RED CELL DISTRIBUTION WIDTH 12.8 % (11.5-14.5); WHITE BLOOD COUNT 9.1 10^3/ul (4.5-11.0)
[2016-12-27 07:20] LABS: INR 1.05 (0.93-1.08)
[2016-12-27 07:26] LABS: ALB/GLOB RATIO 1.3 (1.1-1.8); ALKALINE PHOSPHATASE 96 U/L (38-126); ALT/SGPT 26 U/L (7-56); AST/SGOT 22 U/L (14-36); BILIRUBIN,TOTAL 0.5 mg/dL (0.2-1.3); BLOOD UREA NITROGEN 22 mg/dL (7-21); CALCIUM 9.6 mg/dL (8.4-10.5); CARBON DIOXIDE 33 mmol/L (21-33); CHLORIDE 105 mmol/L (98-107); GFR AFRICAN-AMERICAN > 60; GLUCOSE,RANDOM 132 mg/dL (70-110); POTASSIUM 3.2 mmol/L (3.6-5.0); SODIUM 144 mmol/L (132-148); TOTAL PROTEIN 6.3 g/dL (5.8-8.3)
[2016-12-27] MEDS: Insulin Lispro (humaLOG) LOW Coverage SC SCH ×4 (08:23→22:39)
[2016-12-27] MEDS: Pantoprazole 40 mg EC Tab PO SCH (10:31)
[2016-12-27] MEDS: MethylPREDNISolone 40 mg Vial IVP SCH ×2 (10:56→17:29)
[2016-12-27] MEDS ORDERED: Digoxin 125 mcg (0.125 mg) Tab PO SCH (14:00)
--- NOTE | 2016-12-27 14:22 | CP.PCM.PN ---
<Aroldo Padilla - Last Filed: 12/27/16 14:17> Subjective - Date & Time of Evaluation Date of Evaluation: 12/27/16 Time of Evaluation: 14:17 - Subjective Subjective: Medicine Progress Note: Pt seen and examined at bedside. Pt denied any acute over night events. Pt states that SOB has improved. Pt ambulating well without increased dyspnea. Pt denied CP, nausea, vomiting, chills, fever, abdominal pain, GUZMAN, dizziness, or dysuria. Objective - Vital Signs/Intake and Output Vital Signs (last 24 hours): Temp Pulse Resp BP Pulse Ox 98.0 F 79 20 113/56 L 95 12/27/16 06:00 12/27/16 06:00 12/27/16 06:00 12/27/16 10:56 12/27/16 06:00 Intake and Output: 12/27/16 12/27/16 06:59 18:59 Intake Total 240 Balance 240 - Medications Medications: Current Medications Acetaminophen (Tylenol 325mg Tab) 325 mg PO Q6H PRN PRN Reason: Pain, Mild (1-3) Albuterol/Ipratropium (Duoneb 3 Mg/0.5 Mg (3 Ml) Ud) 3 ml IH [id number] [facility] Last Admin: 12/27/16 14:03 Dose: 3 ml Albuterol/Ipratropium (Duoneb 3 Mg/0.5 Mg (3 Ml) Ud) 3 ml IH Q2H PRN PRN Reason: Shortness of Breath Last Admin: 12/27/16 05:11 Dose: 3 ml Aspirin (Ecotrin) 81 mg PO DAILY [facility] Last Admin: 12/27/16 10:30 Dose: 81 mg Atorvastatin Calcium (Lipitor) 20 mg PO DIN [facility] Last Admin: 12/26/16 17:25 Dose: 20 mg Azithromycin (Zithromax) 250 mg PO DAILY [facility] PRN Reason: Protocol Stop: 12/31/16 10:01 Last Admin: 12/27/16 10:31 Dose: 250 mg Benzonatate (Tessalon Perles) 100 mg PO TID PRN PRN Reason: Cough Digoxin (Lanoxin) 0.125 mg PO DAILY@1400 [facility] Furosemide (Lasix) 20 mg PO DAILY [facility] Last Admin: 12/27/16 10:56 Dose: Not Given Insulin Human Lispro (Humalog Low) 0 units SC ACHS [facility] PRN Reason: Protocol Last Admin: 12/26/16 22:10 Dose: Not Given Methylprednisolone (Solu-Medrol) 30 mg IVP BID [facility] Pantoprazole Sodium (Protonix Ec Tab) 40 mg PO ACB [facility] Last Admin: 12/27/16 10:31 Dose: 40 mg - Labs Labs: 12/27/16 07:00 12/27/16 07:00 PT 11.6 SECONDS (9.4-12.5) 12/27/16 07:00 INR 1.05 (0.93-1.08) 12/27/16 07:00 APTT 30.0 Seconds (25.1-36.5) 12/26/16 10:51 - Constitutional Appears: No Acute Distress - Head Exam Head Exam: ATRAUMATIC, NORMAL INSPECTION, NORMOCEPHALIC - Eye Exam Eye Exam: EOMI, PERRL - ENT Exam ENT Exam: Mucous Membranes Moist - Respiratory Exam Respiratory Exam: Decreased Breath Sounds, Clear to Ausculation Bilateral. absent: Accessory Muscle Use, Rales, Rhonchi, Wheezes, Respiratory Distress - Cardiovascular Exam Cardiovascular Exam: RRR, +S1, +S2. absent: Diastolic murmur, Gallop, Irregular Rhythm, Rubs, Murmur - GI/Abdominal Exam GI & Abdominal Exam: Soft. absent: Distended, Guarding, Tenderness, Rebound - Extremities Exam Extremities Exam: Full ROM, Normal Capillary Refill, Normal Inspection. absent : Tenderness - Back Exam Back Exam: NORMAL INSPECTION - Neurological Exam Neurological Exam: Alert, Awake, Oriented x3 - Psychiatric Exam Psychiatric exam: Normal Affect, Normal Mood - Skin Skin Exam: Dry, Intact, Normal Color, Warm Assessment and Plan - Assessment and Plan (Free Text) Assessment: Patient is a 86 year old female with PMH sig for CAD s/p stenet, COPD, TIA, DM2 , GERD, and CHF who presents to [facility] via EMS complaining of shortness of breath. Patient is evaluated to have COPD exacerbation with elevation of lactic acid. Plan: 1. COPD exacerbation - Patient compliant with medications at home - Duoneb Q6H and PRN - Tapered Solumedrol IV tapered to 30 mg BID - Azithromycin - tessalon pearls prn cough - O2 NC 2L prn with goal SaO2 88-92% - ABG showed pH 7.47, pCO2 42, pO2 55 Lactate WNL today, 2.7 to 1.8 - Promote OOB to chair - F/u repeat ABG or 6 minute walk test tomorrow 2. DM2 - Holding home meds - ISS low - ACHS 3. Hx CAD s/p stents - Aspirin 81mg - Statin 4. GERD - Protonix GI PPX: Protonix DVT ppx: SCDs Case and plan discussed with attending <Garfield Antunez - Last Filed: 12/27/16 14:39> Objective - Vital Signs/Intake and Output Vital Signs (last 24 hours): Temp Pulse Resp BP Pulse Ox 98.0 F 79 20 113/56 L 95 12/27/16 06:00 12/27/16 06:00 12/27/16 06:00 12/27/16 10:56 12/27/16 06:00 Intake and Output: 12/27/16 12/27/16 06:59 18:59 Intake Total 240 Balance 240 - Medications Medications: Current Medications Acetaminophen (Tylenol 325mg Tab) 325 mg PO Q6H PRN PRN Reason: Pain, Mild (1-3) Albuterol/Ipratropium (Duoneb 3 Mg/0.5 Mg (3 Ml) Ud) 3 ml IH [id number] [facility] Last Admin: 12/27/16 14:03 Dose: 3 ml Albuterol/Ipratropium (Duoneb 3 Mg/0.5 Mg (3 Ml) Ud) 3 ml IH Q2H PRN PRN Reason: Shortness of Breath Last Admin: 12/27/16 05:11 Dose: 3 ml Aspirin (Ecotrin) 81 mg PO DAILY [facility] Last Admin: 12/27/16 10:30 Dose: 81 mg Atorvastatin Calcium (Lipitor) 20 mg PO DIN [facility] Last Admin: 12/26/16 17:25 Dose: 20 mg Azithromycin (Zithromax) 250 mg PO DAILY [facility] PRN Reason: Protocol Stop: 12/31/16 10:01 Last Admin: 12/27/16 10:31 Dose: 250 mg Benzonatate (Tessalon Perles) 100 mg PO TID PRN PRN Reason: Cough Digoxin (Lanoxin) 0.125 mg PO DAILY@1400 [facility] Furosemide (Lasix) 20 mg PO DAILY [facility] Last Admin: 12/27/16 10:56 Dose: Not Given Insulin Human Lispro (Humalog Low) 0 units SC ACHS [facility] PRN Reason: Protocol Last Admin: 12/26/16 22:10 Dose: Not Given Methylprednisolone (Solu-Medrol) 30 mg IVP BID [facility] Pantoprazole Sodium (Protonix Ec Tab) 40 mg PO ACB [facility] Last Admin: 12/27/16 10:31 Dose: 40 mg - Labs Labs: 12/27/16 07:00 12/27/16 07:00 PT 11.6 SECONDS (9.4-12.5) 12/27/16 07:00 INR 1.05 (0.93-1.08) 12/27/16 07:00 APTT 30.0 Seconds (25.1-36.5) 12/26/16 10:51 Attending/Attestation - Attestation I have personally seen and examined this patient.: Yes I have fully participated in the care of the patient.: Yes I have reviewed all pertinent clinical information, including history, physical exam and plan: Yes Notes (Text): 12/27/16 14:36 86 year old female with past medical history of CAD, COPD and diabetes who presented with COPD exacerbation. Symptoms are improving on iv steroids, duonebs, azithromycin and tessalon perles. Will taper iv steroids to 30 mg bid. Encouraged out of bed to chair. Continue with insulin ss for diabetes. Continue with aspirin and statin for history of CAD. Will replete and repeat potassium. Family is at bedside and questions were answered. Possible d/c planning in 24-48 hrs if symptoms continue to improve. Garfeild Antunez MD Hospitalist.
[2016-12-27] MEDS ORDERED: Potassium Chloride 20 mEq ER Tab PO STA (14:40)
[2016-12-27 14:54] VITALS: PULSE 82
[2016-12-28] MEDS: Albuterol-Ipratrop 3 mg / 0.5 (3 ml) UD IH SCH ×2 (02:15→07:43)
[2016-12-28 06:58] LABS: ALB/GLOB RATIO 1.3 (1.1-1.8); ALKALINE PHOSPHATASE 87 U/L (38-126); ALT/SGPT 41 U/L (7-56); AST/SGOT 22 U/L (14-36); BILIRUBIN,TOTAL 0.5 mg/dL (0.2-1.3); BLOOD UREA NITROGEN 20 mg/dL (7-21); CALCIUM 9.5 mg/dL (8.4-10.5); CARBON DIOXIDE 30 mmol/L (21-33); CHLORIDE 107 mmol/L (95-110); GFR AFRICAN-AMERICAN > 60; GLUCOSE,RANDOM 140 mg/dL (70-110); POTASSIUM 4.4 mmol/L (3.6-5.0); SODIUM 141 mmol/L (132-148); TOTAL PROTEIN 6.2 g/dL (5.8-8.3)
[2016-12-28 07:12] LABS: GRAN # 6.34 (1.4-6.5); HEMATOCRIT 38.4 % (36.0-48.0); LYMPH # 1.4 (1.2-3.4); MEAN CELL VOLUME 97.2 fl (80.0-105.0); MEAN CORPUSCULAR HEMOGLOBIN 30.9 pg (25.0-35.0); MEAN CORPUSCULAR HGB CONC 31.8 g/dl (31.0-37.0); MEAN PLATELET VOLUME 12.4 fl (7.0-11.0); MONO # 0.4 (0.1-0.6); RED CELL DISTRIBUTION WIDTH 12.9 % (11.5-14.5); WHITE BLOOD COUNT 8.1 10^3/ul (4.5-11.0)
[2016-12-28] MEDS: Insulin Lispro (humaLOG) LOW Coverage SC SCH ×2 (07:52→12:11)
[2016-12-28] MEDS: Pantoprazole 40 mg EC Tab PO SCH (08:05)
[2016-12-28] MEDS: MethylPREDNISolone 40 mg Vial IVP SCH (09:14)
[2016-12-28 09:19] VITALS: BP 144/67
[2016-12-28 09:55] VITALS: TEMP 98; O2SAT 96
[2016-12-28 10:27] VITALS: PULSE 76
--- NOTE | 2016-12-28 15:31 | CP.PCM.DIS ---
<Aroldo Padilla - Last Filed: 12/28/16 15:21> Provider - Provider Date of Admission: 12/26/16 11:33 Attending physician: Ellie Dallas MD Primary care physician: Pascual Sierra MD Time Spent in preparation of Discharge (in minutes): 45 Hospital Course - Lab Results Lab Results: Most Recent Lab Values WBC 8.1 10^3/ul (4.5-11.0) 12/28/16 06:00 RBC 3.95 10^6/uL (3.5-6.1) 12/28/16 06:00 Hgb 12.2 g/dL (12.0-16.0) 12/28/16 06:00 Hct 38.4 % (36.0-48.0) 12/28/16 06:00 MCV 97.2 fl (80.0-105.0) 12/28/16 06:00 MCH 30.9 pg (25.0-35.0) 12/28/16 06:00 MCHC 31.8 g/dl (31.0-37.0) 12/28/16 06:00 RDW 12.9 % (11.5-14.5) 12/28/16 06:00 Plt Count 163 10^3/uL (120.0-450.0) 12/28/16 06:00 MPV 12.4 fl (7.0-11.0) H 12/28/16 06:00 Gran % 78.0 % (50.0-68.0) H 12/28/16 06:00 Lymph % (Auto) 17.0 % (22.0-35.0) L 12/28/16 06:00 [place] % (Auto) 5.0 % (1.0-6.0) 12/28/16 06:00 Eos % (Auto) 0.0 % (1.5-5.0) L 12/28/16 06:00 Baso % (Auto) 0.0 % (0.0-3.0) 12/28/16 06:00 Gran # 6.34 (1.4-6.5) 12/28/16 06:00 Lymph # 1.4 (1.2-3.4) 12/28/16 06:00 [place] # 0.4 (0.1-0.6) 12/28/16 06:00 Eos # 0.0 (0.0-0.7) 12/28/16 06:00 Baso # 0.00 K/mm3 (0.0-2.0) 12/28/16 06:00 PT 11.6 SECONDS (9.4-12.5) 12/27/16 07:00 INR 1.05 (0.93-1.08) 12/27/16 07:00 APTT 30.0 Seconds (25.1-36.5) 12/26/16 10:51 pCO2 42 mm/Hg (35-45) 12/26/16 14:12 pO2 55.0 mm/Hg (80-100) L 12/26/16 14:12 HCO3 30.6 mmol/L (21-28) H 12/26/16 14:12 ABG pH 7.47 (7.35-7.45) H 12/26/16 14:12 ABG Total CO2 31.9 mmol.L (22-28) H 12/26/16 14:12 ABG O2 Saturation 94.2 % (95-98) L 12/26/16 14:12 ABG Base Excess 6.2 mmol/L (-2.0-3.0) H 12/26/16 14:12 ABG Potassium 3.0 mmol/L (3.6-5.2) L 12/26/16 14:12 VBG pH 7.34 (7.32-7.43) 12/26/16 10:51 VBG pCO2 65.0 (40-60) H 12/26/16 10:51 VBG HCO3 35.1 mmol/l (21-28) H 12/26/16 10:51 VBG Total CO2 37.1 mmol.L (22-28) H 12/26/16 10:51 VBG O2 Sat (Calc) 49.2 % (40-65) 12/26/16 10:51 VBG Base Excess 7.0 mmol/L (0.0-2.0) H 12/26/16 10:51 VBG Potassium 4.0 mmol/L (3.6-5.2) 12/26/16 10:51 Sodium 142.0 mmol/L (132-148) 12/26/16 14:12 Chloride 106.0 mmol/L (98-107) 12/26/16 14:12 Glucose 279 mg/dl (65-105) H 12/26/16 14:12 Lactate 1.8 mmol/L (0.7-2.1) 12/26/16 14:12 FiO2 21.0 % 12/26/16 14:12 Sodium 141 mmol/L (132-148) 12/28/16 06:00 Potassium 4.4 mmol/L (3.6-5.0) 12/28/16 06:00 Chloride 107 mmol/L (95-110) 12/28/16 06:00 Carbon Dioxide 30 mmol/L (21-33) 12/28/16 06:00 Anion Gap 8 (10-20) L 12/28/16 06:00 BUN 20 mg/dL (7-21) 12/28/16 06:00 Creatinine 0.7 mg/dL (0.7-1.2) 12/28/16 06:00 Est GFR ( Amer) > 60 12/28/16 06:00 Est GFR (Non-Af Amer) > 60 12/28/16 06:00 POC Glucose (mg/dL) 136 mg/dL (65-110) H 12/28/16 11:18 Random Glucose 140 mg/dL (70-110) H 12/28/16 06:00 Calcium 9.5 mg/dL (8.4-10.5) 12/28/16 06:00 Magnesium 2.1 mg/dL (1.7-2.2) 12/26/16 10:51 Total Bilirubin 0.5 mg/dL (0.2-1.3) 12/28/16 06:00 AST 22 U/L (14-36) 12/28/16 06:00 ALT 41 U/L (7-56) 12/28/16 06:00 Alkaline Phosphatase 87 U/L (38-126) 12/28/16 06:00 Lactate Dehydrogenase 407 U/L (333-699) 12/26/16 10:51 Total Creatine Kinase 28 U/L (35-230) L 12/26/16 10:51 Troponin I < 0.01 ng/mL 12/26/16 10:51 NT-Pro-B Natriuret Pep 99.9 pg/mL (0-450) 12/26/16 10:51 Total Protein 6.2 g/dL (5.8-8.3) 12/28/16 06:00 Albumin 3.5 g/dL (3.0-4.8) 12/28/16 06:00 Globulin 2.7 gm/dL 12/28/16 06:00 Albumin/Globulin Ratio 1.3 (1.1-1.8) 12/28/16 06:00 Arterial Blood Potassium 3.0 mmol/L (3.6-5.2) L 12/26/16 14:12 Venous Blood Potassium 4.0 mmol/L (3.6-5.2) 12/26/16 10:51 Urine Color Yellow (YELLOW) 12/26/16 14:40 Urine Appearance Sl cloudy (CLEAR) 12/26/16 14:40 Urine pH 5.5 (4.7-8.0) 12/26/16 14:40 Ur Specific [place] 1.025 (1.005-1.035) 12/26/16 14:40 Urine Protein Trace mg/dL (<30 mg/dL) H 12/26/16 14:40 Urine Glucose (UA) 100 mg/dL (NEGATIVE) H 12/26/16 14:40 Urine Ketones Trace mg/dL (NEGATIVE) H 12/26/16 14:40 Urine Blood Trace-intact (NEGATIVE) H 12/26/16 14:40 Urine Nitrate Negative (NEGATIVE) 12/26/16 14:40 Urine Bilirubin Negative (NEGATIVE) 12/26/16 14:40 Urine Urobilinogen 0.2 E.U./dL (<1 E.U./dL) 12/26/16 14:40 Ur Leukocyte Esterase [place]/uL (NEGATIVE) H 12/26/16 14:40 Urine RBC 0 - 2 /hpf (0-2) 12/26/16 14:40 Urine WBC 5 - 10 /hpf (0-6) 12/26/16 14:40 Ur Epithelial Cells 6 - 8 /hpf (0-5) 12/26/16 14:40 Urine Bacteria Few (NEG) 12/26/16 14:40 Digoxin 1.2 ng/mL (0.8-2.0) 12/26/16 10:51 - Hospital Course Hospital Course: Pt is a 86 y/o female w/ a PMHx of COPD, CHF, emphysema, asthma, and GERD presented with c/o SOB which started earlier this morning while at home. Patient reported while administering a nebulizer treatment she began to experience symptoms. Patient indicated she was compliant with her medications. Patient reported one previous history of COPD exacerbation with in the past 2 years. Pt stated that the SOB has been intermittent and resolves on it's own w/ rest. Pt also c/o a chronic productive cough w/ white sputum. In the ED, labs and imaging were obtained. VBG showed CO2 retention and hypoxia. ABG performed after therapy on same day resulted in improved O2 and decreased CO2. Pt was admitted for evaluation and treatment for COPD exacerbation. During hospital course, patient was given tapering doses IV of steroids as well as abx and nebulized breathing treatments. Pt tolerated treatment well as as dyspnea improved as well O2 saturation. Pt pmh of DM2, GERD, and CAD s/p stents were managed with home medcations. Today, patient was seen and examined at bedside. Pt denied any acute overnight events. Pt states that breathing had improved over hospital course. 6 minute walk test was performed. Pt O2 sat was 100% prior to testing and at end of test O2 sat was 90%. Since O2 sat was above 88% at end of test patient will not need home oxygen at this time. As patient was hemodynamically stable, patient was discharged home. Patient was given an rx for Medrol dose back, azithromycin, and albuterol inhaler. Patient was advised to follow up with her PMD within week apon discharge. The patient acknowledged and agreed. Discharge Exam - Head Exam Head Exam: ATRAUMATIC, NORMAL INSPECTION, NORMOCEPHALIC - Eye Exam Eye Exam: EOMI, Normal appearance, PERRL Pupil Exam: Fixed, NORMAL ACCOMODATION - ENT Exam ENT Exam: Mucous Membranes Moist, Normal Exam - Neck Exam Neck exam: Full Rom - Respiratory Exam Respiratory Exam: Decreased Breath Sounds, Clear to PA & Lateral. absent: Rales , Rhonchi, Wheezes, Respiratory Distress - Cardiovascular Exam Cardiovascular Exam: RRR, +S1, +S2. absent: Diastolic murmur, Gallop, Rubs, Systolic Murmur - GI/Abdominal Exam GI & Abdominal Exam: Soft. absent: Distended, Firm, Guarding, Rebound, Tenderness - Extremities Exam Extremities exam: normal inspection - Back Exam Additional comments: thoracic kyphosis - Neurological Exam Neurological exam: Alert, Oriented x3 - Psychiatric Exam Psychiatric exam: Normal Affect, Normal Mood - Skin Skin Exam: Dry, Intact, Normal Color, Warm Discharge Plan - Discharge Medications Prescriptions: Albuterol HFA [Ventolin HFA 90 mcg/actuation (8 g)] 1 puff IH Q6H PRN #1 inhaler PRN Reason: Shortness Of Breath Azithromycin [Zithromax] 250 mg PO DAILY #3 tab Blood Sugar Diagnostic [Glucose Test Strip] 1 each ACHS 33 Days strip Methylprednisolone [Medrol Dose Pack (21 tabs)] 4 mg PO DAILY #21 mg - Follow Up Plan Condition: FAIR Disposition: HOME/ ROUTINE Instructions: Chest Pain (DC), Chest Pain (GEN), COPD (Chronic Obstructive Pulmonary Disease) (DC) Additional Instructions: 1. Follow up with PMD within 1 week 2. Complete Medrol dose pack and Azithromycin as prescribed 3. Use Albuterol rescue inhaler as needed 4. Continue home medications as prescribed 5. Return to ED if symptoms worsen Referrals: Pascual Sierra MD [Primary Care Provider] - <Garfield Antunez - Last Filed: 12/28/16 15:45> Provider - Provider Date of Admission: 12/26/16 11:33 Attending physician: Ellie Dallas MD Primary care physician: Pascual Sierra MD Hospital Course - Lab Results Lab Results: Most Recent Lab Values WBC 8.1 10^3/ul (4.5-11.0) 12/28/16 06:00 RBC 3.95 10^6/uL (3.5-6.1) 12/28/16 06:00 Hgb 12.2 g/dL (12.0-16.0) 12/28/16 06:00 Hct 38.4 % (36.0-48.0) 12/28/16 06:00 MCV 97.2 fl (80.0-105.0) 12/28/16 06:00 MCH 30.9 pg (25.0-35.0) 12/28/16 06:00 MCHC 31.8 g/dl (31.0-37.0) 12/28/16 06:00 RDW 12.9 % (11.5-14.5) 12/28/16 06:00 Plt Count 163 10^3/uL (120.0-450.0) 12/28/16 06:00 MPV 12.4 fl (7.0-11.0) H 12/28/16 06:00 Gran % 78.0 % (50.0-68.0) H 12/28/16 06:00 Lymph % (Auto) 17.0 % (22.0-35.0) L 12/28/16 06:00 [place] % (Auto) 5.0 % (1.0-6.0) 12/28/16 06:00 Eos % (Auto) 0.0 % (1.5-5.0) L 12/28/16 06:00 Baso % (Auto) 0.0 % (0.0-3.0) 12/28/16 06:00 Gran # 6.34 (1.4-6.5) 12/28/16 06:00 Lymph # 1.4 (1.2-3.4) 12/28/16 06:00 [place] # 0.4 (0.1-0.6) 12/28/16 06:00 Eos # 0.0 (0.0-0.7) 12/28/16 06:00 Baso # 0.00 K/mm3 (0.0-2.0) 12/28/16 06:00 PT 11.6 SECONDS (9.4-12.5) 12/27/16 07:00 INR 1.05 (0.93-1.08) 12/27/16 07:00 APTT 30.0 Seconds (25.1-36.5) 12/26/16 10:51 pCO2 42 mm/Hg (35-45) 12/26/16 14:12 pO2 55.0 mm/Hg (80-100) L 12/26/16 14:12 HCO3 30.6 mmol/L (21-28) H 12/26/16 14:12 ABG pH 7.47 (7.35-7.45) H 12/26/16 14:12 ABG Total CO2 31.9 mmol.L (22-28) H 12/26/16 14:12 ABG O2 Saturation 94.2 % (95-98) L 12/26/16 14:12 ABG Base Excess 6.2 mmol/L (-2.0-3.0) H 12/26/16 14:12 ABG Potassium 3.0 mmol/L (3.6-5.2) L 12/26/16 14:12 VBG pH 7.34 (7.32-7.43) 12/26/16 10:51 VBG pCO2 65.0 (40-60) H 12/26/16 10:51 VBG HCO3 35.1 mmol/l (21-28) H 12/26/16 10:51 VBG Total CO2 37.1 mmol.L (22-28) H 12/26/16 10:51 VBG O2 Sat (Calc) 49.2 % (40-65) 12/26/16 10:51 VBG Base Excess 7.0 mmol/L (0.0-2.0) H 12/26/16 10:51 VBG Potassium 4.0 mmol/L (3.6-5.2) 12/26/16 10:51 Sodium 142.0 mmol/L (132-148) 12/26/16 14:12 Chloride 106.0 mmol/L (98-107) 12/26/16 14:12 Glucose 279 mg/dl (65-105) H 12/26/16 14:12 Lactate 1.8 mmol/L (0.7-2.1) 12/26/16 14:12 FiO2 21.0 % 12/26/16 14:12 Sodium 141 mmol/L (132-148) 12/28/16 06:00 Potassium 4.4 mmol/L (3.6-5.0) 12/28/16 06:00 Chloride 107 mmol/L (95-110) 12/28/16 06:00 Carbon Dioxide 30 mmol/L (21-33) 12/28/16 06:00 Anion Gap 8 (10-20) L 12/28/16 06:00 BUN 20 mg/dL (7-21) 12/28/16 06:00 Creatinine 0.7 mg/dL (0.7-1.2) 12/28/16 06:00 Est GFR ( Amer) > 60 12/28/16 06:00 Est GFR (Non-Af Amer) > 60 12/28/16 06:00 POC Glucose (mg/dL) 136 mg/dL (65-110) H 12/28/16 11:18 Random Glucose 140 mg/dL (70-110) H 12/28/16 06:00 Calcium 9.5 mg/dL (8.4-10.5) 12/28/16 06:00 Magnesium 2.1 mg/dL (1.7-2.2) 12/26/16 10:51 Total Bilirubin 0.5 mg/dL (0.2-1.3) 12/28/16 06:00 AST 22 U/L (14-36) 12/28/16 06:00 ALT 41 U/L (7-56) 12/28/16 06:00 Alkaline Phosphatase 87 U/L (38-126) 12/28/16 06:00 Lactate Dehydrogenase 407 U/L (333-699) 12/26/16 10:51 Total Creatine Kinase 28 U/L (35-230) L 12/26/16 10:51 Troponin I < 0.01 ng/mL 12/26/16 10:51 NT-Pro-B Natriuret Pep 99.9 pg/mL (0-450) 12/26/16 10:51 Total Protein 6.2 g/dL (5.8-8.3) 12/28/16 06:00 Albumin 3.5 g/dL (3.0-4.8) 12/28/16 06:00 Globulin 2.7 gm/dL 12/28/16 06:00 Albumin/Globulin Ratio 1.3 (1.1-1.8) 12/28/16 06:00 Arterial Blood Potassium 3.0 mmol/L (3.6-5.2) L 12/26/16 14:12 Venous Blood Potassium 4.0 mmol/L (3.6-5.2) 12/26/16 10:51 Urine Color Yellow (YELLOW) 12/26/16 14:40 Urine Appearance Sl cloudy (CLEAR) 12/26/16 14:40 Urine pH 5.5 (4.7-8.0) 12/26/16 14:40 Ur Specific [place] 1.025 (1.005-1.035) 12/26/16 14:40 Urine Protein Trace mg/dL (<30 mg/dL) H 12/26/16 14:40 Urine Glucose (UA) 100 mg/dL (NEGATIVE) H 12/26/16 14:40 Urine Ketones Trace mg/dL (NEGATIVE) H 12/26/16 14:40 Urine Blood Trace-intact (NEGATIVE) H 12/26/16 14:40 Urine Nitrate Negative (NEGATIVE) 12/26/16 14:40 Urine Bilirubin Negative (NEGATIVE) 12/26/16 14:40 Urine Urobilinogen 0.2 E.U./dL (<1 E.U./dL) 12/26/16 14:40 Ur Leukocyte Esterase [place]/uL (NEGATIVE) H 12/26/16 14:40 Urine RBC 0 - 2 /hpf (0-2) 12/26/16 14:40 Urine WBC 5 - 10 /hpf (0-6) 12/26/16 14:40 Ur Epithelial Cells 6 - 8 /hpf (0-5) 12/26/16 14:40 Urine Bacteria Few (NEG) 12/26/16 14:40 Digoxin 1.2 ng/mL (0.8-2.0) 12/26/16 10:51 Attending/Attestation - Attestation I have personally seen and examined this patient.: Yes I have fully participated in the care of the patient.: Yes I have reviewed all pertinent clinical information, including history, physical exam and plan: Yes Notes (Text): 12/28/16 15:44 86 year old female with past medical history of CAD, COPD and diabetes who presented with COPD exacerbation. Symptoms improved with iv steroids, duonebs and azithromycin. She is ambulating without complaints. She will be discharged home on medrol dose pack. Follow up with pmd. Garfield Antunez MD Hospitalist.
== END 2016-12-28 13:13 | disposition home or self-care (01) | DRG 191 ==
LOC: ED 10:26 → ERH 11:33 → 3RNO 14:21
PROVIDERS: ADMIT Hospitalist; ATTEND Hospitalist
PROC: 3E0F7GC Introduction of Other Therapeutic Substance into Respiratory Tract, Via Natural or Artificial Opening (ICD-10-PCS; principal; 2016-12-26)
DX: J44.1 Chronic obstructive pulmonary disease with (acute) exacerbation (principal); E87.2 Acidosis; I11.0 Hypertensive heart disease with heart failure; I50.9 Heart failure, unspecified; E11.9 Type 2 diabetes mellitus without complications; K21.9 Gastro-esophageal reflux disease without esophagitis; I25.10 Atherosclerotic heart disease of native coronary artery without angina pectoris; R09.02 Hypoxemia; K44.9 Diaphragmatic hernia without obstruction or gangrene; Z79.82 Long term (current) use of aspirin; Z79.899 Other long term (current) drug therapy; Z87.01 Personal history of pneumonia (recurrent); Z95.5 Presence of coronary angioplasty implant and graft; Z87.891 Personal history of nicotine dependence

== ENCOUNTER 2017-01-24 18:32 | Emergency (ER) | payer MEDICARE, OTHER ==
[2017-01-24 18:33] VITALS: PULSE 82
[2017-01-24 18:37] VITALS: BMI 19.3
[2017-01-24 18:40] VITALS: TEMP 98.3
[2017-01-24] MEDS ORDERED: Albuterol 0.083% Inhal Sol (2.5 mg/3 mL) UD IH STA (19:02)
--- NOTE | 2017-01-24 19:11 | ED PDOC ---
Arrival/HPI - General Chief Complaint: Shortness Of Breath Time Seen by Provider: 01/24/17 19:02 Historian: Patient - History of Present Illness Narrative History of Present Illness (Text): 01/24/17 19:07 An 86 year old female, whose past medical history includes asthma, COPD, Emphysema, and GERD, presents to the emergency department with a complaint of shortness of breath that began this evening. The patient states that she was at home today when she began to experience the symptoms. She states that once she began to experience the shortness of breath, she took her nebulizer treatments and called her son who told her to stay calm. She states that at the time she was still experiencing the shortness of breath and called to be brought the emergency department. The patient also notes that she has been coughing up white phlegm. The patient denies fevers, chills, headache, dizziness, chest pain , abdominal pain, nausea, vomiting, diarrhea, back pain, neck pain, urinary/ bowel changes, or any other complaint. PMD: Dr. Garner Time/Duration: Other (Tonight) Symptom Onset: Sudden Symptom Course: Unchanged Activities at Onset: Rest Context: Home Past Medical History - Provider Review Nursing Documentation Reviewed: Yes - Infectious Disease Hx of Infectious Diseases: None - Reproductive Menopause: Yes - Cardiac Hx Hypertension: Yes Hx Pacemaker: No - Pulmonary Hx Respiratory Disorders: Yes Hx Asthma: Yes Hx Chronic Obstructive Pulmonary Disease (COPD): Yes Hx Emphysema: Yes Hx Pneumonia: Yes - Neurological Hx Transient Ischemic Attacks (TIA): Yes - HEENT Hx HEENT Disorder: No - Renal Hx Renal Disorder: No - Endocrine/Metabolic Hx Endocrine Disorders: No - Hematological/Oncological Hx Blood Disorders: No - Integumentary Hx Dermatological Disorder: No - Musculoskeletal/Rheumatological Hx Falls: No - Gastrointestinal Hx Gastrointestinal Disorders: Yes Hx Gastroesophageal Reflux: Yes - Genitourinary/Gynecological Hx Genitourinary Disorders: Yes Hx Hematuria: Yes - Psychiatric Hx Emotional Abuse: No Hx Physical Abuse: No Hx Substance Use: No - Past Surgical History Past Surgical History: No Previous - Surgical History Hx Eye Surgery: Yes - Anesthesia Hx Anesthesia: No Hx Anesthesia Reactions: No Hx Malignant Hyperthermia: No - Suicidal Assessment Feels Threatened In Home Enviroment: No Family/Social History - Physician Review Nursing Documentation Reviewed: Yes Family/Social History: No Known Family HX Smoking Status: Former Smoker Hx Alcohol Use: No Hx Substance Use: No Allergies/Home Meds Allergies/Adverse Reactions: Allergies No Known Allergies Allergy (Verified 01/24/17 18:44) Home Medications: Home Meds Medication Instructions Recorded Confirmed Aspirin [Ecotrin] 81 mg PO DAILY 10/07/15 01/24/17 Atorvastatin Calcium [Lipitor] 20 mg PO DIN 10/07/15 01/24/17 Furosemide [Lasix] 20 mg PO DAILY 10/07/15 01/24/17 Digoxin [Lanoxin] 0.125 mg PO DAILY 04/23/16 01/24/17 Albuterol/Ipratropium [Duoneb 3 1 inh INH Q6 PRN 05/19/16 01/24/17 mg/0.5 mg (3 ml) UD] Montelukast [Singulair] 10 tab PO DAILY 05/19/16 01/24/17 Glimepiride [Amaryl] 1 mg PO DAILY 12/26/16 01/24/17 Pantoprazole [Protonix EC Tab] 40 mg PO DAILY 12/26/16 01/24/17 Review of Systems - Physician Review All systems were reviewed & negative as marked: Yes - Review of Systems Constitutional: absent: Fevers, Night Sweats Respiratory: SOB, Cough, Sputum (White ) Cardiovascular: absent: Chest Pain Gastrointestinal: absent: Abdominal Pain, Stool Changes, Diarrhea, Nausea, Vomiting Genitourinary Female: absent: Urine Output Changes Musculoskeletal: absent: Back Pain, Neck Pain Neurological: absent: Headache, Dizziness Physical Exam Vital Signs Reviewed: Yes Vital Signs Temp Pulse Resp BP Pulse Ox 01/24/17 20:30 83 16 151/79 H 93 L 01/24/17 18:40 98.3 F 87 18 140/90 96 01/24/17 18:38 18 Temperature: Afebrile Blood Pressure: Normal Pulse: Regular Respiratory Rate: Normal Appearance: Positive for: Well-Appearing, Non-Toxic Pain Distress: None Mental Status: Positive for: Alert and Oriented X 3 - Systems Exam Head: Present: Atraumatic, Normocephalic Pupils: Present: PERRL Extroacular Muscles: Present: EOMI Conjunctiva: Present: Normal Mouth: Present: Moist Mucous Membranes Neck: Present: Normal Range of Motion. No: JVD Respiratory/Chest: Present: Clear to Auscultation, Other (96% respiration at 22. On 2L of oxygen on nasal canuli. ). No: Respiratory Distress, Accessory Muscle Use Cardiovascular: Present: Regular Rate and Rhythm, Normal S1, S2. No: Murmurs Abdomen: Present: Normal Bowel Sounds. No: Tenderness, Distention, Peritoneal Signs Back: Present: Normal Inspection, Other (Kyphosis: spine has a pink puffer apperance. ) Upper Extremity: Present: Normal Inspection. No: Cyanosis, Edema Lower Extremity: Present: Normal Inspection, NORMAL PULSES (Peripheral Pulses 2+ ). No: Edema Neurological: Present: GCS=15, CN II-XII Intact, Speech Normal Skin: Present: Warm, Dry, Normal Color. No: Rashes Psychiatric: Present: Alert, Oriented x 3, Normal Insight, Normal Concentration Medical Decision Making ED Course and Treatment: 01/24/17 19:17 Impression: An 86 year old female presents to the emergency department with a complaint of sudden onset shortness of breath that began tonight. Plan: -- Albuterol -- Labs -- Reassess and disposition Prior Visits: Notes and results from previous visits were reviewed. Patient was last seen in the emergency department on 12/26/16. The patient was seen for a complaint of shortness of breath. The patient was hospitalized. Progress Notes: EKG: Ordered, reviewed, and independently interpreted the EKG. Rate : 86 BPM Rhythm : NSR Interpretation : No ectopic intervals appreciated within normal limits. No acute ST-T wave changes. Normal EKG. - Lab Interpretations Lab Results: 01/24/17 19:00 01/24/17 19:00 Lab Results 01/24/17 19:00: Sodium 141, Potassium 3.5 L, Chloride 100, Carbon Dioxide 33, Anion Gap 12, BUN 17, Creatinine 0.9, Est GFR ( Amer) > 60, Est GFR (Non- Af Amer) 60, Random Glucose 115 H, Calcium 9.5, Total Bilirubin 0.3, AST 33, ALT 22, Alkaline Phosphatase 90, Troponin I < 0.01, NT-Pro-B Natriuret Pep 239, Total Protein 6.9, Albumin 4.0, Globulin 2.9, Albumin/Globulin Ratio 1.4 01/24/17 19:00: WBC 7.4, RBC 4.10, Hgb 13.2, Hct 40.2, MCV 98.0, MCH 32.2, MCHC 32.8, RDW 12.8, Plt Count 199, MPV 11.8 H, Gran % 53.0, Lymph % (Auto) 31.8, [place] % (Auto) 6.8 H, Eos % (Auto) 8.1 H, Baso % (Auto) 0.3, Gran # 3.93, Lymph # 2.4, [place] # 0.5, Eos # 0.6, Baso # 0.02 I have reviewed the lab results: Yes - RAD Interpretation Radiology Orders: 01/24/17 19:47 CHEST PORTABLE [RAD] Stat - EKG Interpretation Interpreted by ED Physician: Yes Type: 12 lead EKG - Medication Orders Current Medication Orders: Discontinued Medications Albuterol Sulfate (Albuterol 0.083% Inhal Bri (2.5 Mg/3 Ml) Ud) 7.5 mg IH STAT STA Stop: 01/24/17 19:03 Last Admin: 01/24/17 19:29 Dose: 7.5 mg Methylprednisolone (Solu-Medrol) 125 mg IVP STAT STA Stop: 01/24/17 19:47 Last Admin: 01/24/17 20:16 Dose: 125 mg IVP Administration Document 01/24/17 20:16 YP (Rec: 01/24/17 20:17 [place] [facility] [facility] [id number] Charges for Administration # of IVP Administrations 1 - Scribe Statement The provider has reviewed the documentation as recorded by the Scribe Keira Hunt Provider Scribe Attestation: All medical record entries made by the Scribe were at my direction and personally dictated by me. I have reviewed the chart and agree that the record accurately reflects my personal performance of the history, physical exam, medical decision making, and the department course for this patient. I have also personally directed, reviewed, and agree with the discharge instructions and disposition. Disposition/Present on Arrival - Present on Arrival Any Indicators Present on Arrival: No History of DVT/PE: No History of Uncontrolled Diabetes: No Urinary Catheter: No History of Decub. Ulcer: No History Surgical Site Infection Following: None - Disposition Have Diagnosis and Disposition been Completed?: Yes Diagnosis: COPD exacerbation Disposition: HOME/ ROUTINE Disposition Time: 03:56 Patient Plan: Discharge Condition: GOOD Discharge Instructions (ExitCare): COPD (Chronic Obstructive Pulmonary Disease ) (ED) Print Language: GREEK Prescriptions: Azithromycin [Z-Darian] 250 mg PO DAILY #6 tab predniSONE [predniSONE Tab] 20 mg PO DAILY #5 tab Referrals: PCP,NO [Primary Care Provider] - Follow up with primary Forms: [employer] ([place])
[2017-01-24 19:47] LABS: BASO # 0.02 K/mm3 (0.0-2.0); BASO % 0.3 % (0.0-3.0); EOS # 0.6 (0.0-0.7); EOS % 8.1 % (1.5-5.0); GRAN # 3.93 (1.4-6.5); HEMATOCRIT 40.2 % (36.0-48.0); LYMPH # 2.4 (1.2-3.4); LYMPH % 31.8 % (22.0-35.0); MEAN CORPUSCULAR HEMOGLOBIN 32.2 pg (25.0-35.0); MEAN CORPUSCULAR HGB CONC 32.8 g/dl (31.0-37.0); MEAN PLATELET VOLUME 11.8 fl (7.0-11.0); MONO # 0.5 (0.1-0.6); MONO % 6.8 % (1.0-6.0); RED CELL DISTRIBUTION WIDTH 12.8 % (11.5-14.5); WHITE BLOOD COUNT 7.4 10^3/ul (4.5-11.0)
[2017-01-24 20:04] LABS: ALB/GLOB RATIO 1.4 (1.1-1.8); ALKALINE PHOSPHATASE 90 U/L (38-126); ALT/SGPT 22 U/L (7-56); AST/SGOT 33 U/L (14-36); BILIRUBIN,TOTAL 0.3 mg/dL (0.2-1.3); BLOOD UREA NITROGEN 17 mg/dL (7-21); CALCIUM 9.5 mg/dL (8.4-10.5); CARBON DIOXIDE 33 mmol/L (21-33); CHLORIDE 100 mmol/L (98-107); GFR AFRICAN-AMERICAN > 60; GLUCOSE,RANDOM 115 mg/dL (70-110); POTASSIUM 3.5 mmol/L (3.6-5.0); SODIUM 141 mmol/L (132-148); TOTAL PROTEIN 6.9 g/dL (5.8-8.3)
[2017-01-24 20:16] LABS: TROPONIN I < 0.01 ng/mL
[2017-01-24 20:35] VITALS: BP 151/79; PULSE 83; RESP 16; O2SAT 93
--- NOTE | 2017-01-25 10:44 | RAD ---
HISTORY: Sepsis Patient COMPARISON: No prior. FINDINGS: LUNGS: No active pulmonary disease. PLEURA: No significant pleural effusion identified, no pneumothorax apparent. CARDIOVASCULAR: Normal. OSSEOUS STRUCTURES: Minor degenerative changes both shoulder girdles. VISUALIZED UPPER ABDOMEN: Moderate-sized hiatal hernia again noted. OTHER FINDINGS: None. IMPRESSION: No acute infiltrates. Moderate size hiatal hernia.
--- NOTE | 2017-01-25 20:07 | CARD ---
APPROVED REPORT EKG Measurement Heart [id number] <Conclusion> Normal sinus rhythm Normal ECG
== END 2017-01-24 21:08 | disposition home or self-care (01) ==
LOC: ED 18:32
DX: J44.1 Chronic obstructive pulmonary disease with (acute) exacerbation (principal); I10 Essential (primary) hypertension; Z87.891 Personal history of nicotine dependence
CPT/HCPCS: 71010; 80053; 83880; 84484; 85025; 93005; 96374; 99285; J2930

== ENCOUNTER 2017-02-26 11:27 | Emergency (ER) | payer MEDICARE, OTHER ==
[2017-02-26 11:28] VITALS: PULSE 82
[2017-02-26 11:35] VITALS: TEMP 97.8; BMI 22.1
[2017-02-26] MEDS ORDERED: Albuterol-Ipratrop 3 mg / 0.5 (3 ml) UD ONE (11:40)
[2017-02-26] MEDS ORDERED: Albuterol-Ipratrop 3 mg / 0.5 (3 ml) UD IH STA (11:42)
--- NOTE | 2017-02-26 11:45 | ED PDOC ---
Arrival/HPI - General Time Seen by Provider: 02/26/17 11:42 Historian: Patient - History of Present Illness Narrative History of Present Illness (Text): 02/26/17 11:44 A 87 year old female, whose past medical history includes COPD, presents to the emergency department complaining of shortness of breath prior to arrival. Patient reports she uses nebulizer treatments 3 times a day at home. Today she missed her dose while visiting her daughter at the hospital. Patient denies any fever, chills, nausea, vomiting, abdominal pain, chest pain, cough, headache, dizziness or any other complaints. PMD: Dr. Mg Time/Duration: Prior to Arrival Symptom Course: Unchanged Context: Other Past Medical History - Provider Review Nursing Documentation Reviewed: Yes - Infectious Disease Hx of Infectious Diseases: None - Cardiac Hx Hypertension: Yes Hx Pacemaker: No - Pulmonary Hx Respiratory Disorders: Yes Hx Asthma: Yes Hx Chronic Obstructive Pulmonary Disease (COPD): Yes Hx Emphysema: Yes Hx Pneumonia: Yes - Neurological Hx Transient Ischemic Attacks (TIA): Yes - HEENT Hx HEENT Disorder: No - Renal Hx Renal Disorder: No - Endocrine/Metabolic Hx Endocrine Disorders: No - Hematological/Oncological Hx Blood Disorders: No - Integumentary Hx Dermatological Disorder: No - Musculoskeletal/Rheumatological Hx Falls: No - Gastrointestinal Hx Gastrointestinal Disorders: Yes Hx Gastroesophageal Reflux: Yes - Genitourinary/Gynecological Hx Genitourinary Disorders: Yes Hx Hematuria: Yes - Psychiatric Hx Emotional Abuse: No Hx Physical Abuse: No Hx Substance Use: No - Past Surgical History Past Surgical History: No Previous - Surgical History Hx Eye Surgery: Yes - Anesthesia Hx Anesthesia: No Hx Anesthesia Reactions: No Hx Malignant Hyperthermia: No - Suicidal Assessment Feels Threatened In Home Enviroment: No Family/Social History - Physician Review Nursing Documentation Reviewed: Yes Family/Social History: No Known Family HX Smoking Status: Former Smoker Hx Alcohol Use: No Hx Substance Use: No Allergies/Home Meds Allergies/Adverse Reactions: Allergies No Known Allergies Allergy (Verified 01/24/17 18:44) Home Medications: Home Meds Medication Instructions Recorded Confirmed Aspirin [Ecotrin] 81 mg PO DAILY 10/07/15 01/24/17 Atorvastatin Calcium [Lipitor] 20 mg PO DIN 10/07/15 01/24/17 Furosemide [Lasix] 20 mg PO DAILY 10/07/15 01/24/17 Digoxin [Lanoxin] 0.125 mg PO DAILY 04/23/16 01/24/17 Albuterol/Ipratropium [Duoneb 3 1 inh INH Q6 PRN 05/19/16 01/24/17 mg/0.5 mg (3 ml) UD] Montelukast [Singulair] 10 tab PO DAILY 05/19/16 01/24/17 Glimepiride [Amaryl] 1 mg PO DAILY 12/26/16 01/24/17 Pantoprazole [Protonix EC Tab] 40 mg PO DAILY 12/26/16 01/24/17 Review of Systems - Physician Review All systems were reviewed & negative as marked: Yes - Review of Systems Constitutional: absent: Fevers, Night Sweats Respiratory: SOB. absent: Cough Cardiovascular: absent: Chest Pain Gastrointestinal: absent: Abdominal Pain, Nausea, Vomiting Neurological: absent: Headache, Dizziness Physical Exam Vital Signs Reviewed: Yes Vital Signs Temp Pulse Resp BP Pulse Ox 02/26/17 12:08 79 17 135/67 100 02/26/17 11:51 16 02/26/17 11:35 97.8 F 75 16 155/80 H 98 Temperature: Afebrile Blood Pressure: Hypertensive Pulse: Regular Respiratory Rate: Normal Appearance: Positive for: Well-Appearing, Non-Toxic, Comfortable Pain Distress: None Mental Status: Positive for: Alert and Oriented X 3 - Systems Exam Head: Present: Atraumatic, Normocephalic Pupils: Present: PERRL Extroacular Muscles: Present: EOMI Conjunctiva: Present: Normal Mouth: Present: Moist Mucous Membranes Neck: Present: Normal Range of Motion Respiratory/Chest: Present: Good Air Exchange, Wheezes (Scant wheezing at bases) . No: Respiratory Distress, Accessory Muscle Use Cardiovascular: Present: Regular Rate and Rhythm, Normal S1, S2. No: Murmurs Abdomen: Present: Normal Bowel Sounds. No: Tenderness, Distention, Peritoneal Signs Back: Present: Normal Inspection Upper Extremity: Present: Normal Inspection. No: Cyanosis, Edema Lower Extremity: Present: Normal Inspection. No: Edema Neurological: Present: GCS=15, CN II-XII Intact, Speech Normal Skin: Present: Warm, Dry, Normal Color. No: Rashes Psychiatric: Present: Alert, Oriented x 3, Normal Insight, Normal Concentration Medical Decision Making ED Course and Treatment: 02/26/17 11:44 Impression: A 87 year old female with shortness of breath. Patient denies chest pain. Plan: -- Duoneb -- Reassess and disposition Progress Notes: 02/26/17 12:00 Patient given 1 duoneb. She reports that she feels better. Wheezing resolved. She reports that she does not want to stay for additional treatment and wants discharge. - Medication Orders Current Medication Orders: Discontinued Medications Albuterol/Ipratropium (Duoneb 3 Mg/0.5 Mg (3 Ml) Ud) 3 ml IH STAT STA Stop: 02/26/17 11:43 Last Admin: 02/26/17 11:46 Dose: 3 ml - Scribe Statement The provider has reviewed the documentation as recorded by the Tyesha Alvarez Provider Scribe Attestation: All medical record entries made by the Scribe were at my direction and personally dictated by me. I have reviewed the chart and agree that the record accurately reflects my personal performance of the history, physical exam, medical decision making, and the department course for this patient. I have also personally directed, reviewed, and agree with the discharge instructions and disposition. Disposition/Present on Arrival - Present on Arrival Any Indicators Present on Arrival: No History of DVT/PE: No History of Uncontrolled Diabetes: No Urinary Catheter: No History Surgical Site Infection Following: None - Disposition Have Diagnosis and Disposition been Completed?: Yes Diagnosis: Wheezing Disposition: HOME/ ROUTINE Disposition Time: 12:01 Patient Plan: Discharge Condition: GOOD Discharge Instructions (ExitCare): COPD (Chronic Obstructive Pulmonary Disease ) (ED) Additional Instructions: Follow-up with PMD within 2 days. Return to ED if condition worsens. Carry nebulizer with you so you don't miss a dose Forms: [employer] (Lao)
[2017-02-26 12:09] VITALS: BP 135/67; PULSE 79; RESP 17; O2SAT 100
== END 2017-02-26 12:16 | disposition home or self-care (01) ==
LOC: ED 11:27
DX: R06.2 Wheezing (principal); I10 Essential (primary) hypertension; J44.9 Chronic obstructive pulmonary disease, unspecified; Z86.73 Personal history of transient ischemic attack (TIA), and cerebral infarction without residual deficits; Z87.891 Personal history of nicotine dependence

== ENCOUNTER 2017-05-03 02:43 | Observation (INO) | payer MEDICARE, OTHER ==
[2017-05-03 02:58] VITALS: BMI 21.4
[2017-05-03] MEDS: Albuterol-Ipratrop 3 mg / 0.5 (3 ml) UD IH SCH ×6 (03:03→20:19)
--- NOTE | 2017-05-03 03:07 | ED PDOC ---
Arrival/HPI - General Time Seen by Provider: 05/03/17 02:56 Historian: Patient - History of Present Illness Narrative History of Present Illness (Text): 05/03/17 03:04 An 87 year old female, whose past medical history includes asthma, COPD, Emphysema, and GERD, presents to the emergency department with a complaint of shortness of breath that began this evening. The patient denies fevers, chills, headache, dizziness, chest pain, abdominal pain, nausea, vomiting, diarrhea, back pain, neck pain, urinary/bowel changes, or any other complaint. PMD: Dr. Garner Time/Duration: Prior to Arrival Symptom Onset: Sudden Symptom Course: Unchanged Activities at Onset: Rest, Light Context: Home Past Medical History - Provider Review Nursing Documentation Reviewed: Yes - Infectious Disease Hx of Infectious Diseases: None - Cardiac Hx Hypertension: Yes Hx Pacemaker: No - Pulmonary Hx Respiratory Disorders: Yes Hx Asthma: Yes Hx Chronic Obstructive Pulmonary Disease (COPD): Yes Hx Emphysema: Yes Hx Pneumonia: Yes - Neurological Hx Transient Ischemic Attacks (TIA): Yes - HEENT Hx HEENT Disorder: No - Renal Hx Renal Disorder: No - Endocrine/Metabolic Hx Endocrine Disorders: No - Hematological/Oncological Hx Blood Disorders: No - Integumentary Hx Dermatological Disorder: No - Musculoskeletal/Rheumatological Hx Falls: No - Gastrointestinal Hx Gastrointestinal Disorders: Yes Hx Gastroesophageal Reflux: Yes - Genitourinary/Gynecological Hx Genitourinary Disorders: Yes Hx Hematuria: Yes - Psychiatric Hx Emotional Abuse: No Hx Physical Abuse: No Hx Substance Use: No - Past Surgical History Past Surgical History: No Previous - Surgical History Hx Eye Surgery: Yes - Anesthesia Hx Anesthesia: No Hx Anesthesia Reactions: No Hx Malignant Hyperthermia: No - Suicidal Assessment Feels Threatened In Home Enviroment: No Family/Social History - Physician Review Nursing Documentation Reviewed: Yes Family/Social History: No Known Family HX Smoking Status: Former Smoker Hx Alcohol Use: No Hx Substance Use: No Allergies/Home Meds Allergies/Adverse Reactions: Allergies No Known Allergies Allergy (Verified 05/03/17 02:48) Home Medications: Home Meds Medication Instructions Recorded Confirmed Aspirin [Ecotrin] 81 mg PO DAILY 10/07/15 05/03/17 Atorvastatin Calcium [Lipitor] 20 mg PO DIN 10/07/15 05/03/17 Furosemide [Lasix] 20 mg PO DAILY 10/07/15 05/03/17 Digoxin 0.125 mg PO DAILY 04/23/16 05/03/17 Albuterol/Ipratropium [Duoneb 3 1 inh INH Q6 PRN 05/19/16 05/03/17 mg/0.5 mg (3 ml) UD] Montelukast [Singulair] 10 tab PO DAILY 05/19/16 05/03/17 Glimepiride [Amaryl] 1 mg PO DAILY 12/26/16 05/03/17 Pantoprazole [Protonix EC Tab] 40 mg PO DAILY 12/26/16 05/03/17 Review of Systems - Physician Review All systems were reviewed & negative as marked: Yes - Review of Systems Constitutional: absent: Fevers, Night Sweats Respiratory: SOB Cardiovascular: absent: Chest Pain Gastrointestinal: absent: Abdominal Pain, Stool Changes, Diarrhea, Nausea, Vomiting Genitourinary Female: absent: Urine Output Changes Musculoskeletal: absent: Back Pain, Neck Pain Neurological: absent: Headache, Dizziness Physical Exam Vital Signs Reviewed: Yes Vital Signs Temp Pulse Resp BP Pulse Ox 05/03/17 03:03 24 100 05/03/17 02:58 98 F 84 16 149/64 100 Temperature: Afebrile Blood Pressure: Normal Pulse: Regular Respiratory Rate: Normal Appearance: Positive for: Well-Appearing, Non-Toxic, Comfortable Pain Distress: None Mental Status: Positive for: Alert and Oriented X 3 - Systems Exam Head: Present: Atraumatic, Normocephalic Pupils: Present: PERRL Extroacular Muscles: Present: EOMI Conjunctiva: Present: Normal Mouth: Present: Moist Mucous Membranes Neck: Present: Normal Range of Motion Respiratory/Chest: Present: Wheezes Cardiovascular: Present: Regular Rate and Rhythm, Normal S1, S2. No: Murmurs Abdomen: Present: Normal Bowel Sounds. No: Tenderness, Distention, Peritoneal Signs Back: Present: Normal Inspection Upper Extremity: Present: Normal Inspection. No: Cyanosis, Edema Lower Extremity: Present: Normal Inspection. No: Edema Neurological: Present: GCS=15, CN II-XII Intact, Speech Normal Skin: Present: Warm, Dry, Normal Color. No: Rashes Psychiatric: Present: Alert, Oriented x 3, Normal Insight, Normal Concentration Medical Decision Making ED Course and Treatment: 05/03/17 03:06 Impression: An 87 year old female presents to the emergency department complaining of shortness of breath. Plan: -- EKG -- Chest X-ray -- Labs -- Blood Culture -- Duoneb -- Reassess and disposition Progress Notes: EKG: Ordered, reviewed, and independently interpreted the EKG. Rate : 90 BPM Rhythm : NSR Chest X-ray read and interpreted by me shows COPD. - Lab Interpretations Lab Results: 05/03/17 02:55 05/03/17 02:55 Lab Results 05/03/17 02:55: Sodium 146, Chloride 102, Potassium 4.0, Carbon Dioxide 34 H, Anion Gap 14, BUN 25 H, Creatinine 0.8, Est GFR ( Amer) > 60, Est GFR ( Non-Af Amer) > 60, Random Glucose 151 H, Calcium 10.7 H, Total Bilirubin 0.4, AST 25, ALT 22, Alkaline Phosphatase 105, Lactate Dehydrogenase 435, Total Creatine Kinase 26 L, Troponin I < 0.01, NT-Pro-B Natriuret Pep 115, Total Protein 7.6, Albumin 4.2, Globulin 3.4, Albumin/Globulin Ratio 1.2 05/03/17 02:55: pO2 39, VBG pH 7.34, VBG pCO2 70.0 H*, VBG HCO3 37.8 H, VBG Total CO2 39.9 H, VBG O2 Sat (Calc) 71.3 H, VBG Base Excess 9.2 H, VBG Potassium 4.2, Sodium 144.0, Chloride 105.0, Glucose 155 H, Lactate 2.3 H, FiO2 21.0, Venous Blood Potassium 4.2 05/03/17 02:55: PT 11.7, INR 1.03, APTT 29.9 05/03/17 02:55: WBC 8.8, RBC 4.37, Hgb 13.7, Hct 41.9, MCV 95.9, MCH 31.4, MCHC 32.7, RDW 13.2, Plt Count 201, MPV 12.2 H, Gran % 39.5 L, Lymph % (Auto) 43.9 H , Steele % (Auto) 7.3 H, Eos % (Auto) 9.0 H, Baso % (Auto) 0.3, Gran # 3.48, Lymph # (Auto) 3.9 H, Steele # (Auto) 0.6, Eos # (Auto) 0.8 H, Baso # (Auto) 0.03 I have reviewed the lab results: Yes - RAD Interpretation Radiology Orders: 05/03/17 02:59 CHEST PORTABLE [RAD] Stat - EKG Interpretation Interpreted by ED Physician: Yes Type: 12 lead EKG - Medication Orders Current Medication Orders: Discontinued Medications Albuterol/Ipratropium (Duoneb 3 Mg/0.5 Mg (3 Ml) Ud) 3 ml IH Q15M CATHLEEN Stop: 05/03/17 03:31 Last Admin: 05/03/17 03:33 Dose: 3 ml - Scribe Statement The provider has reviewed the documentation as recorded by the Trixieibsyed Hunt Provider Trixieibe Attestation: All medical record entries made by the Scribe were at my direction and personally dictated by me. I have reviewed the chart and agree that the record accurately reflects my personal performance of the history, physical exam, medical decision making, and the department course for this patient. I have also personally directed, reviewed, and agree with the discharge instructions and disposition. Disposition/Present on Arrival - Present on Arrival History of DVT/PE: No History of Uncontrolled Diabetes: No Urinary Catheter: No History Surgical Site Infection Following: None - Disposition
[2017-05-03 03:11] LABS: VENOUS BLOOD GAS BASE EXCESS 9.2 mmol/L (0.0-2.0); VENOUS BLOOD GAS PO2 39 mm/Hg (30-55); VENOUS BLOOD PH 7.34 (7.32-7.43)
[2017-05-03 03:13] LABS: BASO # 0.03 K/mm3 (0.0-2.0); BASO % 0.3 % (0.0-3.0); EOS # 0.8 (0.0-0.7); GRAN # 3.48 (1.4-6.5); GRAN % 39.5 % (50.0-68.0); HEMOGLOBIN 13.7 g/dL (12.0-16.0); LYMPH # 3.9 (1.2-3.4); LYMPH % 43.9 % (22.0-35.0); MEAN CELL VOLUME 95.9 fl (80.0-105.0); MEAN CORPUSCULAR HEMOGLOBIN 31.4 pg (25.0-35.0); MEAN CORPUSCULAR HGB CONC 32.7 g/dl (31.0-37.0); MEAN PLATELET VOLUME 12.2 fl (7.0-11.0); MONO # 0.6 (0.1-0.6); MONO % 7.3 % (1.0-6.0); RBC 4.37 10^6/uL (3.5-6.1); RED CELL DISTRIBUTION WIDTH 13.2 % (11.5-14.5); WHITE BLOOD COUNT 8.8 10^3/ul (4.5-11.0)
[2017-05-03 03:21] LABS: ALB/GLOB RATIO 1.2 (1.1-1.8); ALBUMIN 4.2 g/dL (3.0-4.8); ALT/SGPT 22 U/L (7-56); AST/SGOT 25 U/L (14-36); BLOOD UREA NITROGEN 25 mg/dL (7-21); CALCIUM 10.7 mg/dL (8.4-10.5); GFR AFRICAN-AMERICAN > 60; GFR NON-AFRICAN AMERICAN > 60
[2017-05-03 03:25] LABS: INR 1.03 (0.93-1.08); PARTIAL THROMBOPLASTIN TIME 29.9 Seconds (25.1-36.5); PROTHROMBIN TIME 11.7 SECONDS (9.4-12.5)
[2017-05-03 03:33] LABS: B-TYPE NATRIURETIC PEPTIDE 115 pg/mL (0-450); TROPONIN I < 0.01 ng/mL
[2017-05-03] MEDS ORDERED: Albuterol-Ipratrop 3 mg / 0.5 (3 ml) UD IH PRN (04:16)
--- NOTE | 2017-05-03 04:22 | CP.PCM.HP ---
<Aroldo Padilla - Last Filed: 05/03/17 04:18> History of Present Illness - History of Present Illness History of Present Illness: CC: SOB Pt is an 87 yo F with PMH of emphysema, CAD, CHF, GERD, and DM2 presents to [facility] ED due to shortness of breath. Pt states that she was at home when she lost power and was unable to use her nebulizer at 2 am. She proceeded to to [facility] ED for treatment. Pt also complains of intermittent, productive cough with white- yellow phlegm. Pt received nebulized treatment in the ED and felt better. She is unsure if power has returned to her apartment. Pt denied CP, n/v/d, abdominal pain, fever, chills, GUZMAN, or dizziness. PMD: Alam PMH: Emphysema, CAD, CHF, GERD, DM2 PSH: EGD, Colonscopy, Cataracts All: NKDA FHx: Non-contributory SH: Former 3 ppd smoker for 54 yrs (quit 11 yrs ago), social EtOH use; Denied illicit drug use Medications as per MAR Present on Admission - Present on Admission Any Indicators Present on Admission: No Review of Systems - Review of Systems Review of Systems: 12 point ROS reviewed and is negative other than what is stated in HPI. Past Patient History - Infectious Disease Hx of Infectious Diseases: None - Past Social History Smoking Status: Former Smoker - CARDIAC Hx Hypertension: Yes Hx Pacemaker: No - PULMONARY Hx Respiratory Disorders: Yes Hx Asthma: Yes Hx Chronic Obstructive Pulmonary Disease (COPD): Yes Hx Emphysema: Yes Hx Pneumonia: Yes - NEUROLOGICAL Hx Transient Ischemic Attacks (TIA): Yes - HEENT Hx HEENT Problems: No - RENAL Hx Chronic Kidney Disease: No - ENDOCRINE/METABOLIC Hx Endocrine Disorders: No - HEMATOLOGICAL/ONCOLOGICAL Hx Blood Disorders: No - INTEGUMENTARY Hx Dermatological Problems: No - MUSCULOSKELETAL/RHEUMATOLOGICAL Hx Falls: No - GASTROINTESTINAL Hx Gastrointestinal Disorders: Yes Hx Gastroesophageal Reflux: Yes - GENITOURINARY/GYNECOLOGICAL Hx Genitourinary Disorders: Yes Hx Hematuria: Yes - PSYCHIATRIC Hx Emotional Abuse: No Hx Physical Abuse: No Hx Substance Use: No - SURGICAL HISTORY Hx Eye Surgery: Yes - ANESTHESIA Hx Anesthesia: No Hx Anesthesia Reactions: No Hx Malignant Hyperthermia: No Meds Allergies/Adverse Reactions: Allergies Allergy/AdvReac Type Severity Reaction Status Date / Time No Known Allergies Allergy Verified 05/03/17 02:48 Physical Exam - Constitutional Appears: No Acute Distress - Head Exam Head Exam: NORMAL INSPECTION - Eye Exam Eye Exam: Normal appearance - ENT Exam ENT Exam: Mucous Membranes Moist - Neck Exam Neck exam: Positive for: Normal Inspection - Respiratory Exam Respiratory Exam: Clear to Auscultation Bilateral. absent: Rales, Rhonchi, Wheezes - Cardiovascular Exam Cardiovascular Exam: RRR, +S1, +S2. absent: Diastolic murmur, Gallop, Rubs, Systolic Murmur - GI/Abdominal Exam GI & Abdominal Exam: Soft. absent: Distended, Guarding, Rebound, Tenderness - Extremities Exam Extremities exam: Positive for: normal inspection - Back Exam Back exam: NORMAL INSPECTION - Neurological Exam Neurological exam: Alert, Oriented x3 - Psychiatric Exam Psychiatric exam: Normal Affect, Normal Mood - Skin Skin Exam: Dry, Intact, Normal Color, Warm Results - Vital Signs Recent Vital Signs: Last Vital Signs Temp 98 F 05/03/17 02:58 Pulse 99 H 05/03/17 04:08 Resp 19 05/03/17 04:08 BP 149/62 05/03/17 04:08 Pulse Ox 95 05/03/17 04:08 - Labs Result Diagrams: 05/03/17 02:55 05/03/17 02:55 Assessment & Plan - Assessment and Plan (Free Text) Assessment: 87 yo F with PMH of emphysema, CAD, CHF, GERD, DM2 admitted for COPD. Plan: 1. COPD - CXR shows no active disease - EKG NSR, rate 90 - VBG: hypercapnia, hypoxia - ABG ordered - Duoneb prn and christine - Singular 10 mg daily - Tessalon perles for cough 2. H/o CAD - ASA - Lipitor 3. H/o CHF - Digoxin - Lasix 4. DM2 - ISS low - Accuchecks ACHS - Hold PO meds 5. GERD - Protonix GI/DVT PPx - Protonix - SCDs Pt seen and discussed in detail with Dr. Dallas. Cisco Padilla, PGY1 <Amari Dallas - Last Filed: 05/03/17 05:56> Results - Vital Signs Recent Vital Signs: Last Vital Signs Temp 98 F 05/03/17 02:58 Pulse 99 H 05/03/17 04:08 Resp 20 05/03/17 04:49 BP 149/62 05/03/17 04:08 Pulse Ox 95 05/03/17 04:08 - Labs Result Diagrams: 05/03/17 02:55 05/03/17 02:55
[2017-05-03 06:44] LABS: ARTERIAL BLOOD GAS HCO3 30.6 mmol/L (21-28); ARTERIAL BLOOD GAS O2 SAT 95.2 % (95-98); ARTERIAL BLOOD GAS PCO2 42 mm/Hg (35-45); ARTERIAL BLOOD GAS PH 7.47 (7.35-7.45); ARTERIAL BLOOD GAS TCO2 31.9 mmol.L (22-28)
[2017-05-03 06:50] LABS: VENOUS BLOOD GAS BASE EXCESS 5.6 mmol/L (0.0-2.0); VENOUS BLOOD GAS PO2 79 mm/Hg (30-55); VENOUS BLOOD PH 7.44 (7.32-7.43)
[2017-05-03] MEDS: Insulin Lispro (humaLOG) LOW Coverage SC SCH ×3 (07:57→17:35)
--- NOTE | 2017-05-03 08:20 | RAD ---
HISTORY: sob COMPARISON: Comparison is made with 01/24/2017 FINDINGS: LUNGS: Hyperinflation of the lungs is again noted. No evidence of new infiltrate or consolidation in the lungs. PLEURA: No significant pleural effusion identified, no pneumothorax apparent. CARDIOVASCULAR: Normal. OSSEOUS STRUCTURES: No significant abnormalities. VISUALIZED UPPER ABDOMEN: Findings suggestive of large hiatus hernia seen at the retrocardiac region. OTHER FINDINGS: None. IMPRESSION: Hyperinflation of the lungs suggestive of COPD/emphysema. No evidence of new infiltrate or consolidation in the lungs. Large hiatus hernia.
[2017-05-03] MEDS: Pantoprazole 40 mg EC Tab PO SCH (09:22)
--- NOTE | 2017-05-03 11:00 | CARD ---
APPROVED REPORT EKG Measurement Heart [id number] <Conclusion> Normal sinus rhythm NSSTW changes and mildly prolonged QTc, new since ECG 01/24/17
[2017-05-03 13:48] VITALS: PULSE 95
[2017-05-03] MEDS ORDERED: Digoxin 125 mcg (0.125 mg) Tab PO SCH (14:00)
[2017-05-03] MEDS: Arformoterol 15 mcg/2 ml Inh Sol IH SCH (20:14)
[2017-05-03] MEDS: Budesonide 0.5 mg/2 ml Inhal Susp UD IH SCH (20:14)
[2017-05-04] MEDS: Albuterol-Ipratrop 3 mg / 0.5 (3 ml) UD IH SCH ×3 (01:29→13:42)
[2017-05-04] MEDS: Budesonide 0.5 mg/2 ml Inhal Susp UD IH SCH (07:46)
[2017-05-04] MEDS: Arformoterol 15 mcg/2 ml Inh Sol IH SCH (07:48)
[2017-05-04] MEDS: Insulin Lispro (humaLOG) LOW Coverage SC SCH ×2 (07:56→12:36)
[2017-05-04 08:10] VITALS: RESP 18; O2SAT 99
[2017-05-04 08:14] LABS: BASO # 0.01 K/mm3 (0.0-2.0); BASO % 0.1 % (0.0-3.0); EOS # 0.1 (0.0-0.7); GRAN # 7.3 (1.4-6.5); GRAN % 69.3 % (50.0-68.0); LYMPH # 2.5 (1.2-3.4); LYMPH % 23.3 % (22.0-35.0); MEAN CELL VOLUME 96.1 fl (80.0-105.0); MEAN CORPUSCULAR HEMOGLOBIN 31.2 pg (25.0-35.0); MEAN CORPUSCULAR HGB CONC 32.4 g/dl (31.0-37.0); MEAN PLATELET VOLUME 12.1 fl (7.0-11.0); MONO # 0.7 (0.1-0.6); MONO % 6.3 % (1.0-6.0); RBC 3.85 10^6/uL (3.5-6.1); RED CELL DISTRIBUTION WIDTH 13.4 % (11.5-14.5); WHITE BLOOD COUNT 10.5 10^3/ul (4.5-11.0)
[2017-05-04 08:20] LABS: ALB/GLOB RATIO 1.3 (1.1-1.8); ALBUMIN 3.7 g/dL (3.0-4.8); ALT/SGPT 25 U/L (7-56); AST/SGOT 18 U/L (14-36); BLOOD UREA NITROGEN 30 mg/dL (7-21); CALCIUM 9.9 mg/dL (8.4-10.5); GFR AFRICAN-AMERICAN > 60; GFR NON-AFRICAN AMERICAN > 60
[2017-05-04] MEDS ORDERED: Potassium Chloride 20 mEq ER Tab PO ONE ×2 (08:55→09:28)
[2017-05-04] MEDS: Pantoprazole 40 mg EC Tab PO SCH (09:00)
[2017-05-04 12:44] VITALS: BP 121/62; PULSE 73; TEMP 98
--- NOTE | 2017-05-04 13:46 | CP.PCM.DIS ---
<Mravin Ortega - Last Filed: 05/04/17 13:37> Provider - Provider Date of Admission: 05/03/17 03:25 Attending physician: Filipe Thomas MD Primary care physician: Pascual Sierra MD Time Spent in preparation of Discharge (in minutes): 45 Hospital Course - Lab Results Lab Results: Most Recent Lab Values WBC 10.5 10^3/ul (4.5-11.0) 05/04/17 08:00 RBC 3.85 10^6/uL (3.5-6.1) 05/04/17 08:00 Hgb 12.0 g/dL (12.0-16.0) 05/04/17 08:00 Hct 37.0 % (36.0-48.0) 05/04/17 08:00 MCV 96.1 fl (80.0-105.0) 05/04/17 08:00 MCH 31.2 pg (25.0-35.0) 05/04/17 08:00 MCHC 32.4 g/dl (31.0-37.0) 05/04/17 08:00 RDW 13.4 % (11.5-14.5) 05/04/17 08:00 Plt Count 177 10^3/uL (120.0-450.0) 05/04/17 08:00 MPV 12.1 fl (7.0-11.0) H 05/04/17 08:00 Gran % 69.3 % (50.0-68.0) H 05/04/17 08:00 Lymph % (Auto) 23.3 % (22.0-35.0) 05/04/17 08:00 [place] % (Auto) 6.3 % (1.0-6.0) H 05/04/17 08:00 Eos % (Auto) 1.0 % (1.5-5.0) L 05/04/17 08:00 Baso % (Auto) 0.1 % (0.0-3.0) 05/04/17 08:00 Gran # 7.30 (1.4-6.5) H 05/04/17 08:00 Lymph # (Auto) 2.5 (1.2-3.4) 05/04/17 08:00 [place] # (Auto) 0.7 (0.1-0.6) H 05/04/17 08:00 Eos # (Auto) 0.1 (0.0-0.7) 05/04/17 08:00 Baso # (Auto) 0.01 K/mm3 (0.0-2.0) 05/04/17 08:00 PT 11.7 SECONDS (9.4-12.5) 05/03/17 02:55 INR 1.03 (0.93-1.08) 05/03/17 02:55 APTT 29.9 Seconds (25.1-36.5) 05/03/17 02:55 pCO2 42 mm/Hg (35-45) 05/03/17 06:30 pO2 79 mm/Hg (30-55) H 05/03/17 06:40 HCO3 30.6 mmol/L (21-28) H 05/03/17 06:30 ABG pH 7.47 (7.35-7.45) H 05/03/17 06:30 ABG Total CO2 31.9 mmol.L (22-28) H 05/03/17 06:30 ABG O2 Saturation 95.2 % (95-98) 05/03/17 06:30 ABG Base Excess 6.2 mmol/L (-2.0-3.0) H 05/03/17 06:30 ABG Potassium 2.9 mmol/L (3.6-5.2) L 05/03/17 06:30 VBG pH 7.44 (7.32-7.43) H 05/03/17 06:40 VBG pCO2 45.0 (40-60) 05/03/17 06:40 VBG HCO3 30.6 mmol/l (21-28) H 05/03/17 06:40 VBG Total CO2 32.0 mmol.L (22-28) H 05/03/17 06:40 VBG O2 Sat (Calc) 98.0 % (40-65) H 05/03/17 06:40 VBG Base Excess 5.6 mmol/L (0.0-2.0) H 05/03/17 06:40 VBG Potassium 3.2 mmol/L (3.6-5.2) L 05/03/17 06:40 Sodium 141.0 mmol/L (132-148) 05/03/17 06:40 Chloride 103.0 mmol/L (98-107) 05/03/17 06:40 Glucose 293 mg/dl (65-105) H 05/03/17 06:40 Lactate 4.0 mmol/L (0.7-2.1) H* 05/03/17 06:40 FiO2 21.0 % 05/03/17 06:40 Sodium 143 mmol/L (132-148) 05/04/17 08:00 Potassium 3.5 mmol/L (3.6-5.0) L 05/04/17 08:00 Chloride 102 mmol/L (98-107) 05/04/17 08:00 Carbon Dioxide 31 mmol/L (21-33) 05/04/17 08:00 Anion Gap 13 (10-20) 05/04/17 08:00 BUN 30 mg/dL (7-21) H 05/04/17 08:00 Creatinine 0.8 mg/dl (0.7-1.2) 05/04/17 08:00 Est GFR ( Amer) > 60 05/04/17 08:00 Est GFR (Non-Af Amer) > 60 05/04/17 08:00 POC Glucose (mg/dL) 122 mg/dL (65-110) H 05/04/17 07:17 Random Glucose 131 mg/dL (70-110) H 05/04/17 08:00 Lactic Acid 2.1 mmol/L (0.7-2.1) 05/04/17 06:30 Calcium 9.9 mg/dL (8.4-10.5) 05/04/17 08:00 Total Bilirubin 0.5 mg/dL (0.2-1.3) 05/04/17 08:00 AST 18 U/L (14-36) 05/04/17 08:00 ALT 25 U/L (7-56) 05/04/17 08:00 Alkaline Phosphatase 80 U/L (38-126) 05/04/17 08:00 Lactate Dehydrogenase 435 U/L (333-699) 05/03/17 02:55 Total Creatine Kinase 26 U/L (35-230) L 05/03/17 02:55 Troponin I < 0.01 ng/mL 05/03/17 02:55 NT-Pro-B Natriuret Pep 115 pg/mL (0-450) 05/03/17 02:55 Total Protein 6.6 g/dL (5.8-8.3) 05/04/17 08:00 Albumin 3.7 g/dL (3.0-4.8) 05/04/17 08:00 Globulin 2.9 gm/dL 05/04/17 08:00 Albumin/Globulin Ratio 1.3 (1.1-1.8) 05/04/17 08:00 Arterial Blood Potassium 2.9 mmol/L (3.6-5.2) L 05/03/17 06:30 Venous Blood Potassium 3.2 mmol/L (3.6-5.2) L 05/03/17 06:40 - Hospital Course Hospital Course: HPI: Pt is an 87 yo F with PMH of emphysema, CAD, CHF, GERD, and DM2 presents to [facility] due to shortness of breath. Pt states that she was at home when she lost power and was unable to use her nebulizer at 2 am. She proceeded to to [facility] for treatment. Pt also complains of intermittent, productive cough with white- yellow phlegm. Pt received nebulized treatment in the ED and felt better. She is unsure if power has returned to her apartment. Pt denied CP, n/v/d, abdominal pain, fever, chills, GUZMAN, or dizziness. Throughout her course at the hospital, Ms. Pritchett's shortness of breath improved. Her lactate on admission was elevated, but on day before discharge, her lactic acid was normal. Blood cultures were negative. Chest XR showed no acute disease. Patient did not show any signs of sepsis. Patient did not show any signs of respiratory distress. Patient was deemed stable for discharge. She requested prescriptions for her nebulizer fluid as well as aspirin and digoxin, which were given to her. Discharge Exam - Head Exam Head Exam: NORMAL INSPECTION - Eye Exam Eye Exam: EOMI, Normal appearance, PERRL Pupil Exam: NORMAL ACCOMODATION, PERRL - Respiratory Exam Respiratory Exam: Clear to PA & Lateral, NORMAL BREATHING PATTERN, UNREMARKABLE - Cardiovascular Exam Cardiovascular Exam: REGULAR RHYTHM, RRR. absent: Diastolic murmur, Systolic Murmur - GI/Abdominal Exam GI & Abdominal Exam: Normal Bowel Sounds - Neurological Exam Neurological exam: Alert, CN II-XII Intact, Normal Gait, Oriented x3, Reflexes Normal - Psychiatric Exam Psychiatric exam: Normal Affect, Normal Mood - Skin Skin Exam: Dry, Intact, Normal Color, Warm Discharge Plan - Discharge Medications Prescriptions: Albuterol/Ipratropium [Duoneb 3 mg/0.5 mg (3 ml) UD] 1 inh INH Q6 PRN #30 neb PRN Reason: Shortness Of Breath Aspirin [Ecotrin] 81 mg PO DAILY #30 tabec Digoxin 0.125 mg PO DAILY #30 tab - Follow Up Plan Condition: GOOD Disposition: HOME/ ROUTINE Instructions: Chronic Obstructive Pulmonary Disease (COPD), Including Emphysema , Exacerbation of COPD, Chest Pain (DC), Chest Pain (GEN) Additional Instructions: 1. Please follow up with your primary care doctor within one week, Dr. Sierra 2. Please picker your prescriptions at the pharmacy downstairs Referrals: Pascual Sierra MD [Primary Care Provider] - <Filipe Thomas - Last Filed: 05/04/17 16:28> Provider - Provider Date of Admission: 05/03/17 03:25 Attending physician: Filipe Thomas MD Primary care physician: Pascual Sierra MD Hospital Course - Lab Results Lab Results: Most Recent Lab Values WBC 10.5 10^3/ul (4.5-11.0) 05/04/17 08:00 RBC 3.85 10^6/uL (3.5-6.1) 05/04/17 08:00 Hgb 12.0 g/dL (12.0-16.0) 05/04/17 08:00 Hct 37.0 % (36.0-48.0) 05/04/17 08:00 MCV 96.1 fl (80.0-105.0) 05/04/17 08:00 MCH 31.2 pg (25.0-35.0) 05/04/17 08:00 MCHC 32.4 g/dl (31.0-37.0) 05/04/17 08:00 RDW 13.4 % (11.5-14.5) 05/04/17 08:00 Plt Count 177 10^3/uL (120.0-450.0) 05/04/17 08:00 MPV 12.1 fl (7.0-11.0) H 05/04/17 08:00 Gran % 69.3 % (50.0-68.0) H 05/04/17 08:00 Lymph % (Auto) 23.3 % (22.0-35.0) 05/04/17 08:00 [place] % (Auto) 6.3 % (1.0-6.0) H 05/04/17 08:00 Eos % (Auto) 1.0 % (1.5-5.0) L 05/04/17 08:00 Baso % (Auto) 0.1 % (0.0-3.0) 05/04/17 08:00 Gran # 7.30 (1.4-6.5) H 05/04/17 08:00 Lymph # (Auto) 2.5 (1.2-3.4) 05/04/17 08:00 [place] # (Auto) 0.7 (0.1-0.6) H 05/04/17 08:00 Eos # (Auto) 0.1 (0.0-0.7) 05/04/17 08:00 Baso # (Auto) 0.01 K/mm3 (0.0-2.0) 05/04/17 08:00 PT 11.7 SECONDS (9.4-12.5) 05/03/17 02:55 INR 1.03 (0.93-1.08) 05/03/17 02:55 APTT 29.9 Seconds (25.1-36.5) 05/03/17 02:55 pCO2 42 mm/Hg (35-45) 05/03/17 06:30 pO2 79 mm/Hg (30-55) H 05/03/17 06:40 HCO3 30.6 mmol/L (21-28) H 05/03/17 06:30 ABG pH 7.47 (7.35-7.45) H 05/03/17 06:30 ABG Total CO2 31.9 mmol.L (22-28) H 05/03/17 06:30 ABG O2 Saturation 95.2 % (95-98) 05/03/17 06:30 ABG Base Excess 6.2 mmol/L (-2.0-3.0) H 05/03/17 06:30 ABG Potassium 2.9 mmol/L (3.6-5.2) L 05/03/17 06:30 VBG pH 7.44 (7.32-7.43) H 05/03/17 06:40 VBG pCO2 45.0 (40-60) 05/03/17 06:40 VBG HCO3 30.6 mmol/l (21-28) H 05/03/17 06:40 VBG Total CO2 32.0 mmol.L (22-28) H 05/03/17 06:40 VBG O2 Sat (Calc) 98.0 % (40-65) H 05/03/17 06:40 VBG Base Excess 5.6 mmol/L (0.0-2.0) H 05/03/17 06:40 VBG Potassium 3.2 mmol/L (3.6-5.2) L 05/03/17 06:40 Sodium 141.0 mmol/L (132-148) 05/03/17 06:40 Chloride 103.0 mmol/L (98-107) 05/03/17 06:40 Glucose 293 mg/dl (65-105) H 05/03/17 06:40 Lactate 4.0 mmol/L (0.7-2.1) H* 05/03/17 06:40 FiO2 21.0 % 05/03/17 06:40 Sodium 143 mmol/L (132-148) 05/04/17 08:00 Potassium 3.5 mmol/L (3.6-5.0) L 05/04/17 08:00 Chloride 102 mmol/L (98-107) 05/04/17 08:00 Carbon Dioxide 31 mmol/L (21-33) 05/04/17 08:00 Anion Gap 13 (10-20) 05/04/17 08:00 BUN 30 mg/dL (7-21) H 05/04/17 08:00 Creatinine 0.8 mg/dl (0.7-1.2) 05/04/17 08:00 Est GFR ( Amer) > 60 05/04/17 08:00 Est GFR (Non-Af Amer) > 60 05/04/17 08:00 POC Glucose (mg/dL) 96 mg/dL (65-110) 05/04/17 11:22 Random Glucose 131 mg/dL (70-110) H 05/04/17 08:00 Lactic Acid 2.1 mmol/L (0.7-2.1) 05/04/17 06:30 Calcium 9.9 mg/dL (8.4-10.5) 05/04/17 08:00 Total Bilirubin 0.5 mg/dL (0.2-1.3) 05/04/17 08:00 AST 18 U/L (14-36) 05/04/17 08:00 ALT 25 U/L (7-56) 05/04/17 08:00 Alkaline Phosphatase 80 U/L (38-126) 05/04/17 08:00 Lactate Dehydrogenase 435 U/L (333-699) 05/03/17 02:55 Total Creatine Kinase 26 U/L (35-230) L 05/03/17 02:55 Troponin I < 0.01 ng/mL 05/03/17 02:55 NT-Pro-B Natriuret Pep 115 pg/mL (0-450) 05/03/17 02:55 Total Protein 6.6 g/dL (5.8-8.3) 05/04/17 08:00 Albumin 3.7 g/dL (3.0-4.8) 05/04/17 08:00 Globulin 2.9 gm/dL 05/04/17 08:00 Albumin/Globulin Ratio 1.3 (1.1-1.8) 05/04/17 08:00 Procalcitonin 0.05 NG/ML (0.19-0.49) L 05/04/17 06:30 Arterial Blood Potassium 2.9 mmol/L (3.6-5.2) L 05/03/17 06:30 Venous Blood Potassium 3.2 mmol/L (3.6-5.2) L 05/03/17 06:40 Attending/Attestation - Attestation I have personally seen and examined this patient.: Yes I have fully participated in the care of the patient.: Yes I have reviewed all pertinent clinical information, including history, physical exam and plan: Yes Notes (Text): 05/04/17 16:24 Attending note; Patient seen and examined with resident. Patient's son by the bedside. She and is a87 -year-old female with PMH of emphysema, coronary artery disease, copd and DM2 presents to [facility] due to shortness of breath. Pt states that she was at home when she lost power and was unable to use her nebulizer at 2 am. Treated with oxygen, IV Solu-Medrol and DuoNeb. Currently patient is alert and awake. No tachycardia hypoxia noted. Patient is ambulating without difficulty. Physical therapy evaluation appreciated. Patient will be discharged home. Patient will follow-up with PMD Dr. Sierra. Diagnosis; COPD exacerbation Diabetes Coronary artery disease 05/04/17 16:27 05/04/17 16:28
== END 2017-05-04 14:12 | disposition home or self-care (01) ==
LOC: ED 02:43 → ERH 03:25 → 3RSO 04:20 → OBSVTOIN 10:04 → INTOOBSV 10:04
PROVIDERS: ADMIT Hospitalist; ATTEND Internal Medicine
DX: J44.1 Chronic obstructive pulmonary disease with (acute) exacerbation (principal); E11.9 Type 2 diabetes mellitus without complications; I25.10 Atherosclerotic heart disease of native coronary artery without angina pectoris; K21.9 Gastro-esophageal reflux disease without esophagitis; I50.9 Heart failure, unspecified; I11.0 Hypertensive heart disease with heart failure; Z87.891 Personal history of nicotine dependence
CPT/HCPCS: 36415; 71045; 80053; 82550; 82803; 82948; 83605; 83615; 83880; 84145; 84484; 85025; 85610; 85730; 87040; 93005; 94640; 94760; 97116; 97161; 99285; G0378; G8978; G8979; G8980

== ENCOUNTER 2017-09-02 20:43 | Inpatient (IN) | payer MEDICARE, OTHER ==
[2017-09-02 20:54] VITALS: BMI 22.1
[2017-09-02 21:14] LABS: BASO # 0.02 K/mm3 (0.0-2.0); BASO % 0.3 % (0.0-3.0); EOS # 0.6 (0.0-0.7); EOS % 7.5 % (1.5-5.0); GRAN # 2.98 (1.4-6.5); GRAN % 39.7 % (50.0-68.0); HEMOGLOBIN 13.9 g/dL (12.0-16.0); LYMPH # 3.5 (1.2-3.4); LYMPH % 46.6 % (22.0-35.0); MEAN CELL VOLUME 93.1 fl (80.0-105.0); MEAN CORPUSCULAR HEMOGLOBIN 30.9 pg (25.0-35.0); MEAN CORPUSCULAR HGB CONC 33.2 g/dl (31.0-37.0); MEAN PLATELET VOLUME 11.8 fl (7.0-11.0); MONO # 0.4 (0.1-0.6); MONO % 5.9 % (1.0-6.0); RBC 4.5 10^6/uL (3.5-6.1); RED CELL DISTRIBUTION WIDTH 12.8 % (11.5-14.5); WHITE BLOOD COUNT 7.5 10^3/ul (4.5-11.0)
[2017-09-02 21:19] LABS: INR 1.02 (0.93-1.08); PARTIAL THROMBOPLASTIN TIME 30.5 Seconds (25.1-36.5); PROTHROMBIN TIME 11.6 SECONDS (9.4-12.5)
[2017-09-02 21:25] LABS: ALB/GLOB RATIO 1.4 (1.1-1.8); ALBUMIN 4.4 g/dL (3.0-4.8); ALT/SGPT 30 U/L (7-56); AST/SGOT 35 U/L (14-36); BLOOD UREA NITROGEN 23 mg/dL (7-21); CALCIUM 9.5 mg/dL (8.4-10.5); GFR AFRICAN-AMERICAN > 60; GFR NON-AFRICAN AMERICAN > 60
[2017-09-02] MEDS: Albuterol-Ipratrop 3 mg / 0.5 (3 ml) UD IH SCH ×3 (21:27→21:55)
--- NOTE | 2017-09-02 21:27 | ED PDOC ---
Arrival/HPI - General Chief Complaint: Shortness Of Breath Time Seen by Provider: 09/02/17 20:47 Historian: Patient - History of Present Illness Narrative History of Present Illness (Text): 09/02/17 21:24 Patient is a 87 year old female whose past medical history includes COPD, and TIA, who presents to the emergency department complaining of dyspnea with unknown onset. She had a syncopal episode and states that she doesn't know what she was doing prior to the event. Patient denies fevers, chills, chest pain, abdominal pain, nausea, vomiting, diarrhea, back pain, neck pain, headache , dizziness, or any other complaint. Symptom Onset: Sudden Context: Home Past Medical History - Provider Review Nursing Documentation Reviewed: Yes - Infectious Disease Hx of Infectious Diseases: None - Cardiac Hx Hypertension: Yes Hx Pacemaker: No - Pulmonary Hx Respiratory Disorders: Yes Hx Asthma: Yes Hx Chronic Obstructive Pulmonary Disease (COPD): Yes Hx Emphysema: Yes Hx Pneumonia: Yes - Neurological Hx Transient Ischemic Attacks (TIA): Yes - HEENT Hx HEENT Disorder: No - Renal Hx Renal Disorder: No - Endocrine/Metabolic Hx Endocrine Disorders: No - Hematological/Oncological Hx Blood Disorders: No - Integumentary Hx Dermatological Disorder: No - Musculoskeletal/Rheumatological Hx Falls: No - Gastrointestinal Hx Gastrointestinal Disorders: Yes Hx Gastroesophageal Reflux: Yes - Genitourinary/Gynecological Hx Genitourinary Disorders: Yes Hx Hematuria: Yes - Psychiatric Hx Emotional Abuse: No Hx Physical Abuse: No Hx Substance Use: No - Past Surgical History Past Surgical History: No Previous - Surgical History Hx Eye Surgery: Yes - Anesthesia Hx Anesthesia: No Hx Anesthesia Reactions: No Hx Malignant Hyperthermia: No - Suicidal Assessment Feels Threatened In Home Enviroment: No Family/Social History - Physician Review Nursing Documentation Reviewed: Yes Family/Social History: No Known Family HX Smoking Status: Former Smoker Hx Alcohol Use: No Hx Substance Use: No Allergies/Home Meds Allergies/Adverse Reactions: Allergies No Known Allergies Allergy (Verified 05/03/17 02:48) Home Medications: Home Meds Medication Instructions Recorded Confirmed Atorvastatin Calcium [Lipitor] 20 mg PO DIN 10/07/15 09/02/17 Furosemide [Lasix] 20 mg PO DAILY 10/07/15 09/02/17 Montelukast [Singulair] 10 tab PO DAILY 05/19/16 09/02/17 Glimepiride [Amaryl] 1 mg PO DAILY 12/26/16 09/02/17 Pantoprazole [Protonix EC Tab] 40 mg PO DAILY 12/26/16 09/02/17 Review of Systems - Physician Review All systems were reviewed & negative as marked: Yes - Review of Systems Constitutional: absent: Fevers, Night Sweats Respiratory: SOB, Wheezing. absent: Cough Cardiovascular: absent: Chest Pain Gastrointestinal: absent: Abdominal Pain, Diarrhea, Nausea, Vomiting Musculoskeletal: absent: Back Pain, Neck Pain Skin: Other (Hematoma over right eye) Neurological: absent: Headache, Dizziness Physical Exam Vital Signs Temp Pulse Resp BP Pulse Ox 09/03/17 00:51 97.8 F 98 H 18 102/66 93 L 09/02/17 22:29 98.1 F 109 H 18 125/67 95 09/02/17 20:55 20 100 - Systems Exam Head: Present: Atraumatic, Normocephalic Pupils: Present: PERRL Extroacular Muscles: Present: EOMI Conjunctiva: Present: Normal Mouth: Present: Moist Mucous Membranes Neck: Present: Normal Range of Motion Respiratory/Chest: Present: Wheezes (bilateral wheezing). No: Respiratory Distress, Accessory Muscle Use Cardiovascular: Present: Regular Rate and Rhythm, Normal S1, S2. No: Murmurs Abdomen: No: Tenderness, Distention, Peritoneal Signs Back: Present: Normal Inspection Upper Extremity: Present: Normal Inspection. No: Cyanosis, Edema Lower Extremity: Present: Normal Inspection. No: Edema Neurological: Present: GCS=15, CN II-XII Intact, Speech Normal Skin: Present: Warm, Dry, Normal Color, Other (Hematoma over right eye.). No: Rashes Psychiatric: Present: Alert, Oriented x 3, Normal Insight, Normal Concentration Medical Decision Making ED Course and Treatment: 09/02/17 21:28 Impression: Patient is a 87 year old female who presents to the Emergency department complaining of shortness of breath with associated wheezing, and has a hematoma over her right eye. Plan: --EKG --Head CT without Contrast --Labs and blood work --Cardiac enzyme --Chest X-ray --Urinalysis and blood culture --Duoneb --Solu-Medrol -- Reassess and disposition Prior Visits: Notes and results from previous visits were reviewed. Progress Notes: 09/02/17 20:52 EKG shows sinus tachycardia at [address] changes. Interpreted by me. 09/02/17 21:37 Chest X-ray shows COPD, no pneumonia. Interpreted by me. 09/02/17 22:24 Case discussed with biomedical electronics technician, who is aware and agrees with plan. Case discussed with Dr. Newman, who is aware and agrees with plan. Pt will be admitted to Telemetry for COPD and subdural hematoma under Dr. Paolo Gamboa's service. 09/02/17 22:32 CT Head shows: BRAIN: There is a small amount of acute subarachnoid hemorrhage identified within the right parietal lobe superiorly near the vertex.There is a tiny right temporal parietal acute subdural hematoma. Global atrophy with expected confluent low density throughout the deep white matter consistent with chronic small vessel disease. MIDLINE SHIFT: There is no midline shift or mass effect. VENTRICLES: Unremarkable. No ventriculomegaly. BONES/JOINTS: Unremarkable. No acute fracture. SOFT TISSUES: Extracranial soft tissue swelling and air within the right frontal scalp. SINUSES: Unremarkable as visualized. No acute sinusitis. MASTOID AIR CELLS: Unremarkable as visualized. No mastoid effusion. IMPRESSION: Small amount of acute subarachnoid hemorrhage in the right parietal lobe. Small right temporal parietal acute subdural hematoma without midline shift or mass effect. Short term followup recommended. Atrophy with chronic small vessel ischemic disease 09/02/17 22:[address] Lopez, who is aware and agrees with plan. Will consult on case. - Lab Interpretations Lab Results: 09/02/17 20:55 09/02/17 20:55 Lab Results 09/02/17 20:55: TSH 3rd Generation 1.79 09/02/17 20:55: Triglycerides 109, Cholesterol 238 H, LDL Cholesterol Direct 138 H, HDL Cholesterol 75 H 09/02/17 20:55: Sodium 142, Potassium 4.2, Chloride 101, Carbon Dioxide 29, Anion Gap 16, BUN 23 H, Creatinine 0.8, Est GFR ( Amer) > 60, Est GFR ( Non-Af Amer) > 60, Random Glucose 212 H, Calcium 9.5, Magnesium 2.2, Total Bilirubin 0.6, AST 35, ALT 30, Alkaline Phosphatase 92, Lactate Dehydrogenase 476, Total Creatine Kinase 36, Troponin I < 0.01, NT-Pro-B Natriuret Pep 159, Total Protein 7.6, Albumin 4.4, Globulin 3.2, Albumin/Globulin Ratio 1.4 09/02/17 20:55: PT 11.6, INR 1.02, APTT 30.5 09/02/17 20:55: WBC 7.5, RBC 4.50, Hgb 13.9, Hct 41.9, MCV 93.1, MCH 30.9, MCHC 33.2, RDW 12.8, Plt Count 202, MPV 11.8 H, Gran % 39.7 L, Lymph % (Auto) 46.6 H , [place] % (Auto) 5.9, Eos % (Auto) 7.5 H, Baso % (Auto) 0.3, Gran # 2.98, Lymph # (Auto) 3.5 H, [place] # (Auto) 0.4, Eos # (Auto) 0.6, Baso # (Auto) 0.02 I have reviewed the lab results: Yes - RAD Interpretation Radiology Orders: 09/02/17 21:01 HEAD W/O CONTRAST [CT] Stat CHEST PORTABLE [RAD] Stat 09/02/17 23:49 SHOULDER RIGHT [RAD] Stat 09/02/17 23:51 ELBOW RIGHT 3 VIEWS ROUTINE [RAD] Stat Hip Right [HIP MIN 2V W/ PELVIS RT] [RAD] Stat Tower Erector Helper: ED Physician - EKG Interpretation Interpreted by ED Physician: Yes Type: 12 lead EKG - Medication Orders Current Medication Orders: Albuterol Sulfate (Albuterol 0.042% Inhal Bri (1.25mg/3ml) Ud) 1.25 mg IH [id number] PRN PRN Reason: Shortness of Breath Albuterol/Ipratropium (Duoneb 3 Mg/0.5 Mg (3 Ml) Ud) 3 ml INH Q6 PRN PRN Reason: Shortness of Breath Last Admin: 09/03/17 01:44 Dose: 3 ml Aspirin (Ecotrin) 81 mg PO DAILY CATHLEEN Atorvastatin Calcium (Lipitor) 40 mg PO DIN CATHLEEN Digoxin (Digoxin) 0.125 mg PO 1400 CATHLEEN Furosemide (Lasix) 20 mg PO DAILY [facility] Insulin Human Lispro (Humalog Low) 0 units SC ACHS CATHLEEN PRN Reason: Protocol Montelukast Sodium (Singulair) 10 mg PO DAILY CATHLEEN Pantoprazole Sodium (Protonix Ec Tab) 40 mg PO 0600 CATHLEEN Last Admin: 09/03/17 05:14 Dose: 40 mg Discontinued Medications Albuterol/Ipratropium (Duoneb 3 Mg/0.5 Mg (3 Ml) Ud) 3 ml IH Q15M [facility] Last Admin: 09/02/17 21:55 Dose: 3 ml Atorvastatin Calcium (Lipitor) 20 mg PO DIN [facility] Methylprednisolone (Solu-Medrol) 125 mg IVP ONCE ONE Stop: 09/02/17 21:12 Last Admin: 09/02/17 21:27 Dose: 125 mg IVP Administration Document 09/02/17 21:27 RAMY (Rec: 09/02/17 21:27 [facility] [id number]) Charges for Administration # of IVP Administrations 1 - Scribe Statement Kelechi Orlando Provider Scribe Attestation: All medical record entries made by the Scribe were at my direction and personally dictated by me. I have reviewed the chart and agree that the record accurately reflects my personal performance of the history, physical exam, medical decision making, and the department course for this patient. I have also personally directed, reviewed, and agree with the discharge instructions and disposition. Disposition/Present on Arrival - Present on Arrival Any Indicators Present on Arrival: No History of DVT/PE: No History of Uncontrolled Diabetes: No Urinary Catheter: No History of Decub. Ulcer: No History Surgical Site Infection Following: None - Disposition Have Diagnosis and Disposition been Completed?: Yes Diagnosis: COPD exacerbation, Subdural hematoma Disposition: HOSPITALIZED Disposition Time: 22:40 Condition: FAIR
[2017-09-02 21:37] LABS: B-TYPE NATRIURETIC PEPTIDE 159 pg/mL (0-450); TROPONIN I < 0.01 ng/mL
--- NOTE | 2017-09-03 00:25 | CP.PCM.HP ---
History of Present Illness - History of Present Illness History of Present Illness: Jayce Stephen D.O. PGY-1, Internal Medicine Resident History and Physical for Dr Newman. Pt is an 87 year old female whose PMH includes COPD, CAD, CHF, TIA, DM2, HLD, and HTN who presents to the emergency department after a witnessed fall/ syncope at [facility]. She reports that she does not remember falling , feeling dizzy, lightheaded, or anything before the fall. The next thing she remembers is being in the ambulance. Pt reports she had a fall about 1 year ago. Pt states she has pain in her right leg and right arm. She states that she hit her right orbit when she fell. Patient denies fevers, chills, chest pain, abdominal pain, nausea, vomiting, diarrhea, back pain, neck pain, headache, dizziness, or any other complaint. 12 point ROS reviewed and noted where applicable. PMH: Emphysema, CAD, CHF, GERD, DM2 PSH: EGD, Colonscopy, Cataracts Allergies: NKDA FHx: Reviewed, non-contributory SH: Former 3 ppd smoker for 54 yrs (quit 11 yrs ago), social EtOH use; Denied illicit drug use PMD: Dr. Sierra Medications as per MAR Present on Admission - Present on Admission Any Indicators Present on Admission: No Past Patient History - Infectious Disease Hx of Infectious Diseases: None - Past Social History Smoking Status: Former Smoker - CARDIAC Hx Hypertension: Yes Hx Pacemaker: No - PULMONARY Hx Respiratory Disorders: Yes Hx Asthma: Yes Hx Chronic Obstructive Pulmonary Disease (COPD): Yes Hx Emphysema: Yes Hx Pneumonia: Yes - NEUROLOGICAL Hx Transient Ischemic Attacks (TIA): Yes - HEENT Hx HEENT Problems: No - RENAL Hx Chronic Kidney Disease: No - ENDOCRINE/METABOLIC Hx Endocrine Disorders: No - HEMATOLOGICAL/ONCOLOGICAL Hx Blood Disorders: No - INTEGUMENTARY Hx Dermatological Problems: No - MUSCULOSKELETAL/RHEUMATOLOGICAL Hx Falls: No - GASTROINTESTINAL Hx Gastrointestinal Disorders: Yes Hx Gastroesophageal Reflux: Yes - GENITOURINARY/GYNECOLOGICAL Hx Genitourinary Disorders: Yes Hx Hematuria: Yes - PSYCHIATRIC Hx Emotional Abuse: No Hx Physical Abuse: No Hx Substance Use: No - SURGICAL HISTORY Hx Eye Surgery: Yes - ANESTHESIA Hx Anesthesia: No Hx Anesthesia Reactions: No Hx Malignant Hyperthermia: No Meds Allergies/Adverse Reactions: Allergies Allergy/AdvReac Type Severity Reaction Status Date / Time No Known Allergies Allergy Verified 03/18/18 02:48 Physical Exam - Constitutional Appears: No Acute Distress - Head Exam Additional comments: pt has large bruise around her right orbit. small laceration above right orbit. - Eye Exam Eye Exam: EOMI, Periorbital swelling, Periorbital tenderness Additional comments: right side swollen and tender - ENT Exam ENT Exam: Mucous Membranes Moist, Normal Exam - Neck Exam Neck exam: Positive for: Normal Inspection - Respiratory Exam Respiratory Exam: Decreased Breath Sounds, NORMAL BREATHING PATTERN - Cardiovascular Exam Cardiovascular Exam: REGULAR RHYTHM, RRR, +S1, +S2. absent: JVD - GI/Abdominal Exam GI & Abdominal Exam: Normal Bowel Sounds, Soft - Extremities Exam Extremities exam: Positive for: full ROM, normal inspection, tenderness Additional comments: right arm and right leg tenderness. full ROM - Neurological Exam Neurological exam: Alert, CN II-XII Intact, Oriented x3 Additional comments: pt had difficulty puffing her checks during neuro exam, because she does not have her dentures in - Psychiatric Exam Psychiatric exam: Normal Affect, Normal Mood - Skin Skin Exam: Abrasion Additional comments: cut above right orbit. Hematoma around right orbit. some bruising on right arm Results - Vital Signs Recent Vital Signs: Last Vital Signs Temp 98.1 F 09/02/17 22:29 Pulse 109 H 09/02/17 22:29 Resp 18 09/02/17 22:29 BP 125/67 09/02/17 22:29 Pulse Ox 95 09/02/17 22:29 - Labs Result Diagrams: 09/02/17 20:55 09/02/17 20:55 Labs: Laboratory Results - last 24 hr 09/02/17 09/02/17 09/02/17 20:55 20:55 20:55 WBC 7.5 RBC 4.50 Hgb 13.9 Hct 41.9 MCV 93.1 MCH 30.9 MCHC 33.2 RDW 12.8 Plt Count 202 MPV 11.8 H Gran % 39.7 L Lymph % (Auto) 46.6 H [place] % (Auto) 5.9 Eos % (Auto) 7.5 H Baso % (Auto) 0.3 Gran # 2.98 Lymph # (Auto) 3.5 H [place] # (Auto) 0.4 Eos # (Auto) 0.6 Baso # (Auto) 0.02 PT 11.6 INR 1.02 APTT 30.5 Sodium 142 Potassium 4.2 Chloride 101 Carbon Dioxide 29 Anion Gap 16 BUN 23 H Creatinine 0.8 Est GFR ( Amer) > 60 Est GFR (Non-Af Amer) > 60 Random Glucose 212 H Calcium 9.5 Magnesium 2.2 Total Bilirubin 0.6 AST 35 ALT 30 Alkaline Phosphatase 92 Lactate Dehydrogenase 476 Total Creatine Kinase 36 Troponin I < 0.01 NT-Pro-B Natriuret Pep 159 Total Protein 7.6 Albumin 4.4 Globulin 3.2 Albumin/Globulin Ratio 1.4 Assessment & Plan - Assessment and Plan (Free Text) Assessment: Pt is an 87 year old female whose PMH includes COPD, CAD, CHF, TIA, DM2, HLD, and HTN who presents to the emergency department after a witnessed fall/ syncope at [facility]. Plan: Syncopal Episode, Fall -orthostatic vital signs -place pt on tele -consult PT and OT -pt advised to use walker, which she has at home -Order HA1C -Lipid panel: TC 238, LDL 138, HDL 75 -TSH 1.79 -place pt on SSI -CT of head ordered -Neurosurgery consulted -Order Right Shoulder Xray -Order Right Hip Xray -Order R Elbow Xray -Order Echocardiogram -monitor and keep pt systolic BP under 180 -EKG shows no signs of arrhythmia Trop negative x1, continue to trend Pt seen, examined, and A/P discussed with Dr Newman. Jayce Stephen PGY-1.
[2017-09-03 00:27] LABS: LDL CHOLESTEROL 138 mg/dL (0-129)
[2017-09-03 00:38] LABS: HDL CHOLESTEROL 75 mg/dL (29-60)
[2017-09-03 01:38] LABS: URINE BILIRUBIN NEGATIVE (NEGATIVE); URINE BLOOD TRACE-INTACT (NEGATIVE); URINE GLUCOSE (UA) NEGATIVE (NEGATIVE); URINE LEUKOCYTE ESTERASE SMALL Leu/uL (NEGATIVE); URINE PROTEIN NEGATIVE mg/dL (<30 mg/dL); URINE UROBILINOGEN 0.2 E.U./dL (<1 E.U./dL)
[2017-09-03 01:41] LABS: URINE APPEARANCE SL CLOUDY (CLEAR)
[2017-09-03 01:42] LABS: URINE COLOR DARK YELLOW (YELLOW)
[2017-09-03] MEDS: Albuterol-Ipratrop 3 mg / 0.5 (3 ml) UD INH PRN ×2 (01:44→21:27)
[2017-09-03] MEDS ORDERED: Albuterol 0.042% Inhal Sol (1.25 mg/3 mL) UD IH PRN (02:00)
[2017-09-03 02:01] LABS: URINE RBC 0 - 2 /hpf (0-2)
[2017-09-03 02:03] LABS: URINE BACTERIA FEW (NEG); URINE HYALINE CAST 0 - 2 /hpf
[2017-09-03] MEDS: Pantoprazole 40 mg EC Tab PO SCH (05:14)
--- NOTE | 2017-09-03 07:13 | RAD ---
Date of service: 09/02/2017 HISTORY: sob COMPARISON: 05/03/2017 FINDINGS: LUNGS: No active pulmonary disease. PLEURA: No significant pleural effusion identified, no pneumothorax apparent. CARDIOVASCULAR: Normal. OSSEOUS STRUCTURES: No significant abnormalities. VISUALIZED UPPER ABDOMEN: Moderate size hiatal hernia OTHER FINDINGS: None. IMPRESSION: No active disease.
--- NOTE | 2017-09-03 07:21 | RAD ---
Date of service: 09/03/2017 PROCEDURE: Radiographs of the right elbow. HISTORY: fall COMPARISON: No prior. FINDINGS: BONES: Normal. No fracture. JOINTS: Normal. No osteoarthritis. SOFT TISSUES: Normal. JOINT EFFUSION: None. OTHER FINDINGS: None. IMPRESSION: Unremarkable radiographs of the right elbow.
--- NOTE | 2017-09-03 07:38 | RAD ---
Date of service: 09/03/2017 PROCEDURE: Pelvis and right hip HISTORY: fall COMPARISON: TECHNIQUE: Three views FINDINGS: There is no evidence of fracture. There is mild joint space narrowing. No bony abnormalities IMPRESSION: Negative study
--- NOTE | 2017-09-03 07:45 | CT ---
Date of service: 09/02/2017 PROCEDURE: CT HEAD WITHOUT CONTRAST. HISTORY: syncope COMPARISON: 10/07/2015 TECHNIQUE: Axial computed tomography images were obtained through the head/brain without intravenous contrast. Radiation dose: Total exam DLP = 756 mGy-cm. This CT exam was performed using one or more of the following dose reduction techniques: Automated exposure control, adjustment of the mA and/or kV according to patient size, and/or use of iterative reconstruction technique. FINDINGS: HEMORRHAGE: There is a small amount of acute subarachnoid hemorrhage in the right parietal lobe and right posterior temporal lobe. There is a small thin subdural hematoma over the right temporal lobe. BRAIN: No mass effect or edema. No atrophy or chronic microvascular ischemic changes. VENTRICLES: Unremarkable. No hydrocephalus. CALVARIUM: Unremarkable. PARANASAL SINUSES: Unremarkable as visualized. No significant inflammatory changes. MASTOID AIR CELLS: Unremarkable as visualized. No inflammatory changes. OTHER FINDINGS: Soft tissue swelling anterior to the right orbit. The report concurs with the preliminary [facility] report IMPRESSION: There is a small amount of acute subarachnoid hemorrhage in the right parietal lobe and right posterior temporal lobe. There is a small thin subdural hematoma over the right temporal lobe.
[2017-09-03] MEDS: Insulin Lispro (humaLOG) LOW Coverage SC SCH ×4 (07:57→22:08)
--- NOTE | 2017-09-03 08:25 | CP.PCM.PN ---
Subjective - Date & Time of Evaluation Date of Evaluation: 09/03/17 Time of Evaluation: 08:24 - Subjective Subjective: t is an 87 year old female whose PMH includes COPD, CAD, CHF, TIA, DM2, HLD, and HTN who presents to the emergency department after a witnessed fall/ She reports that she does not remember falling, CT shows tiny amount of right convexity SAH No surgical intervention indicated If pt remains stable can be d/c this afternoon Objective - Vital Signs/Intake and Output Vital Signs (last 24 hours): Temp Pulse Resp BP Pulse Ox 98.5 F 93 H 20 109/44 L 97 09/03/17 06:00 09/03/17 06:00 09/03/17 06:00 09/03/17 06:00 09/03/17 06:00 Intake and Output: 09/03/17 09/03/17 06:59 18:59 Intake Total 0 Output Total 150 Balance -150 - Medications Medications: Current Medications Albuterol Sulfate (Albuterol 0.042% Inhal Bri (1.25mg/3ml) Ud) 1.25 mg IH [id number] PRN PRN Reason: Shortness of Breath Albuterol/Ipratropium (Duoneb 3 Mg/0.5 Mg (3 Ml) Ud) 3 ml INH Q6 PRN PRN Reason: Shortness of Breath Last Admin: 09/03/17 01:44 Dose: 3 ml Atorvastatin Calcium (Lipitor) 40 mg PO DIN [facility] Digoxin (Digoxin) 0.125 mg PO 1400 [facility] Furosemide (Lasix) 20 mg PO DAILY [facility] Insulin Human Lispro (Humalog Low) 0 units SC ACHS [facility] PRN Reason: Protocol Last Admin: 09/03/17 07:57 Dose: 3 unit Montelukast Sodium (Singulair) 10 mg PO DAILY [facility] Pantoprazole Sodium (Protonix Ec Tab) 40 mg PO 0600 [facility] Last Admin: 09/03/17 05:14 Dose: 40 mg - Labs Labs: PT 11.6 SECONDS (9.4-12.5) 09/02/17 20:55 INR 1.02 (0.93-1.08) 09/02/17 20:55 APTT 30.5 Seconds (25.1-36.5) 09/02/17 20:55
--- NOTE | 2017-09-03 09:40 | CARD ---
APPROVED REPORT Date of service: 09/02/2017 EKG Measurement Heart [id number] <Conclusion> Sinus tachycardia Left axis deviation Septal infarct, age undetermined Abnormal ECG
[2017-09-03 09:55] LABS: GRAN # 5.4 (1.4-6.5); GRAN % 83.6 % (50.0-68.0); HEMOGLOBIN 12.4 g/dL (12.0-16.0); LYMPH # 0.8 (1.2-3.4); MEAN CELL VOLUME 92.4 fl (80.0-105.0); MEAN CORPUSCULAR HEMOGLOBIN 30.5 pg (25.0-35.0); MEAN PLATELET VOLUME 11.4 fl (7.0-11.0); MONO # 0.2 (0.1-0.6); MONO % 3.4 % (1.0-6.0); RBC 4.07 10^6/uL (3.5-6.1); WHITE BLOOD COUNT 6.5 10^3/ul (4.5-11.0)
--- NOTE | 2017-09-03 10:12 | RAD ---
Date of service: 09/03/2017 PROCEDURE: Radiographs of the Right Shoulder HISTORY: fall COMPARISON: No prior. FINDINGS: BONES: Normal. No fracture. JOINTS: Normal. Glenohumeral and acromioclavicular joints preserved. No osteoarthritis. SOFT TISSUES: Normal. OTHER FINDINGS: None. IMPRESSION: Normal radiographs of the right shoulder.
[2017-09-03 10:13] LABS: ALB/GLOB RATIO 1.4 (1.1-1.8); ALT/SGPT 19 U/L (7-56); AST/SGOT 24 U/L (14-36); BLOOD UREA NITROGEN 24 mg/dL (7-21); CALCIUM 9.7 mg/dL (8.4-10.5); GFR AFRICAN-AMERICAN > 60; GFR NON-AFRICAN AMERICAN > 60
--- NOTE | 2017-09-03 11:12 | CP.PCM.CON ---
History of Present Illness - History of Present Illness History of Present Illness: Brandon Mcadonaldvinnie PGY2 - Neurology Consult Note - Dr. Vasques CC: Mechanical fall vs. Syncope HPI: 87 year old female with past medical history that includes COPD, CAD, CHF, TIA, DM2, HLD and HTN who presented to [facility] ED via ambulance from [facility] for syncopal episode. During interview patient reports the only thing she can remember is prior to her fall she was playing cards with some friends when she got up and walked through a door she must have fallen. Her next recallable memory was riding in the ambulance to the hospital. She reports history of fall 1 year prior to this event. Patient reports she ambulates with walker at half-way. After her fall she denies any knowledge of loss of bowel , urinary incontinence, biting of tongue, history of visible shaking movements. She denies palpatations, cardiac history or significant stenosis from her previous work up. She reports feeling at her baseline today. She denies chest pain, abdominal pain, numbness, tingling, focal deficits, changes in vision. She indicates some shortness of breath for which is chronic and associated with her emphysema. She also reports right sided arm and leg pain associated with her fall onto her right side. 12 point ROS benign other than mentioned in HPI. Patient was evaluated in ED and found to have a minor subdural over right temporal lobe and small subarachnoid hemorrohage of the right parietal lobe. X ray of right arm adn right leg are negative for acute fracture. PMH: Emphysema, CAD, CHF, GERD, DM2, TIA 3 years prior PSH: EGD, Colonscopy, Cataracts FMH: Reviewed, non-contributory SH: Former 3 ppd smoker for 54 yrs (quit 11 yrs ago), social EtOH use; Denied illicit drug use ALL: NKDA MEDS: MAR reviewed PMD: Dr. Sierra Review of Systems - Review of Systems All systems: reviewed and no additional remarkable complaints except (as mentioned in HPI) Past Patient History - Infectious Disease Hx of Infectious Diseases: None - Past Social History Smoking Status: Former Smoker Alcohol: None Drugs: Denies - CARDIAC Hx Hypertension: Yes Hx Pacemaker: No - PULMONARY Hx Respiratory Disorders: Yes Hx Asthma: Yes Hx Chronic Obstructive Pulmonary Disease (COPD): Yes Hx Emphysema: Yes Hx Pneumonia: Yes - NEUROLOGICAL Hx Transient Ischemic Attacks (TIA): Yes - HEENT Hx HEENT Problems: No - RENAL Hx Chronic Kidney Disease: No - ENDOCRINE/METABOLIC Hx Endocrine Disorders: No - HEMATOLOGICAL/ONCOLOGICAL Hx Blood Disorders: No - INTEGUMENTARY Hx Dermatological Problems: No - MUSCULOSKELETAL/RHEUMATOLOGICAL Hx Falls: No - GASTROINTESTINAL Hx Gastrointestinal Disorders: Yes Hx Gastroesophageal Reflux: Yes - GENITOURINARY/GYNECOLOGICAL Hx Genitourinary Disorders: Yes Hx Hematuria: Yes - PSYCHIATRIC Hx Emotional Abuse: No Hx Physical Abuse: No Hx Substance Use: No - SURGICAL HISTORY Hx Eye Surgery: Yes - ANESTHESIA Hx Anesthesia: No Hx Anesthesia Reactions: No Hx Malignant Hyperthermia: No Meds Allergies/Adverse Reactions: Allergies Allergy/AdvReac Type Severity Reaction Status Date / Time No Known Allergies Allergy Verified 05/03/17 02:48 - Medications Medications: Current Medications Albuterol Sulfate (Albuterol 0.042% Inhal Bri (1.25mg/3ml) Ud) 1.25 mg IH [id number] PRN PRN Reason: Shortness of Breath Albuterol/Ipratropium (Duoneb 3 Mg/0.5 Mg (3 Ml) Ud) 3 ml INH Q6 PRN PRN Reason: Shortness of Breath Last Admin: 09/03/17 01:44 Dose: 3 ml Atorvastatin Calcium (Lipitor) 40 mg PO DIN [facility] Digoxin (Digoxin) 0.125 mg PO 1400 [facility] Furosemide (Lasix) 20 mg PO DAILY [facility] Last Admin: 09/03/17 09:50 Dose: 20 mg Insulin Human Lispro (Humalog Low) 0 units SC ACHS [facility] PRN Reason: Protocol Last Admin: 09/03/17 07:57 Dose: 3 unit Montelukast Sodium (Singulair) 10 mg PO DAILY [facility] Last Admin: 09/03/17 09:50 Dose: 10 mg Pantoprazole Sodium (Protonix Ec Tab) 40 mg PO 0600 [facility] Last Admin: 09/03/17 05:14 Dose: 40 mg Physical Exam - Constitutional Appears: Non-toxic - Head Exam Additional comments: Bruising present around right orbit, dried new blood present - Eye Exam Eye Exam: PERRL. absent: Nystagmus, Scleral icterus Pupil Exam: absent: Unequal - Respiratory Exam Respiratory Exam: Decreased Breath Sounds, Wheezes (mild bilateral ), NORMAL BREATHING PATTERN - Cardiovascular Exam Cardiovascular Exam: REGULAR RHYTHM, +S1, +S2 - GI/Abdominal Exam GI & Abdominal Exam: Normal Bowel Sounds, Soft - Extremities Exam Extremities exam: Negative for: calf tenderness, tenderness - Neurological Exam Neurological exam: Alert, CN II-XII Intact, Oriented x3 Additional comments: AAOx3, CN2-12 intact, no evidence of nystagmus Mild dysmetria Strength 5/5 in all four extremities Heel to liriano adequate, mild dysmetria associated Gait is noted to be small shuffling without assistance of walker Sensory grossly normal bilaterally - Psychiatric Exam Psychiatric exam: Normal Affect, Normal Mood - Skin Skin Exam: Dry, Intact Results - Vital Signs Recent Vital Signs: Last Vital Signs Temp 98.5 F 09/03/17 06:00 Pulse 88 09/03/17 10:00 Resp 20 09/03/17 06:00 BP 110/57 L 09/03/17 09:50 Pulse Ox 97 09/03/17 06:00 - Labs Result Diagrams: 09/03/17 09:30 09/03/17 09:30 Labs: Laboratory Results - last 24 hr 09/03/17 09/03/17 09/03/17 01:10 09:30 09:30 WBC 6.5 RBC 4.07 Hgb 12.4 Hct 37.6 MCV 92.4 MCH 30.5 MCHC 33.0 RDW 13.0 Plt Count 176 MPV 11.4 H Gran % 83.6 H Lymph % (Auto) 13.0 L [place] % (Auto) 3.4 Eos % (Auto) 0.0 L Baso % (Auto) 0.0 Gran # 5.40 Lymph # (Auto) 0.8 L [place] # (Auto) 0.2 Eos # (Auto) 0.0 Baso # (Auto) 0.00 Sodium 141 Potassium 3.8 Chloride 101 Carbon Dioxide 28 Anion Gap 16 BUN 24 H Creatinine 0.8 Est GFR ( Amer) > 60 Est GFR (Non-Af Amer) > 60 Random Glucose 214 H Calcium 9.7 Total Bilirubin 0.3 AST 24 ALT 19 Alkaline Phosphatase 66 Total Protein 6.9 Albumin 4.0 Globulin 2.9 Albumin/Globulin Ratio 1.4 Urine Color Dark yellow Urine Appearance Sl cloudy Urine pH 6.0 Ur Specific [place] 1.010 Urine Protein Negative Urine Glucose (UA) Negative Urine Ketones Negative Urine Blood Trace-intact H Urine Nitrate Negative Urine Bilirubin Negative Urine Urobilinogen 0.2 Ur Leukocyte Esterase Small H Urine RBC 0 - 2 Urine WBC 1 - 3 Ur Epithelial Cells 3 - 4 Urine Bacteria Few Hyaline Casts 0 - 2 Urine Other Mucus Assessment & Plan - Assessment and Plan (Free Text) Assessment: A: 87 year old female with past medical history that includes COPD, CAD, CHF, TIA, DM2, HLD and HTN who presents with CT head evidence of subarachnoid and subdural hematoma secondary to trauma from mechanical fall vs. syncope. Plan: Pre-syncope vs. Syncope vs. Mechanical fall leading to subdural hematoma amd - Head CT (09/02/17): small acute subarachnoid hemorrhage in right parietal lobe and right posterior temporal lobe, small subdural hematoma over right temporal lobe - Neurosurgery consulted and following case, recommending no intervention at this time - Orthstatics negative for hypotension - Echocardiogram pending - EEG - CTA head/neck - Repeat head CT in 24 hours Patient seen and case and plan discussed with attending, Dr. Caprice Holt PGY2 - Date & Time Date: 09/03/17 Time: 11:29
[2017-09-03] MEDS: Digoxin 125 mcg (0.125 mg) Tab PO SCH (13:30)
[2017-09-03] MEDS ORDERED: Iodixanol 320 mg/ml 150 ml Bottle IV ONE (16:52)
[2017-09-04] MEDS: Pantoprazole 40 mg EC Tab PO SCH (06:35)
[2017-09-04] MEDS: Albuterol-Ipratrop 3 mg / 0.5 (3 ml) UD INH PRN ×3 (07:40→20:38)
--- NOTE | 2017-09-04 07:43 | CP.PCM.CON ---
Past Patient History - Infectious Disease Hx of Infectious Diseases: None - Past Social History Smoking Status: Former Smoker Alcohol: None Drugs: Denies - CARDIAC Hx Hypertension: Yes Hx Pacemaker: No - PULMONARY Hx Respiratory Disorders: Yes Hx Asthma: Yes Hx Chronic Obstructive Pulmonary Disease (COPD): Yes Hx Emphysema: Yes Hx Pneumonia: Yes - NEUROLOGICAL Hx Transient Ischemic Attacks (TIA): Yes - HEENT Hx HEENT Problems: No - RENAL Hx Chronic Kidney Disease: No - ENDOCRINE/METABOLIC Hx Endocrine Disorders: No - HEMATOLOGICAL/ONCOLOGICAL Hx Blood Disorders: No - INTEGUMENTARY Hx Dermatological Problems: No - MUSCULOSKELETAL/RHEUMATOLOGICAL Hx Falls: No - GASTROINTESTINAL Hx Gastrointestinal Disorders: Yes Hx Gastroesophageal Reflux: Yes - GENITOURINARY/GYNECOLOGICAL Hx Genitourinary Disorders: Yes Hx Hematuria: Yes - PSYCHIATRIC Hx Emotional Abuse: No Hx Physical Abuse: No Hx Substance Use: No - SURGICAL HISTORY Hx Eye Surgery: Yes - ANESTHESIA Hx Anesthesia: No Hx Anesthesia Reactions: No Hx Malignant Hyperthermia: No Meds Allergies/Adverse Reactions: Allergies Allergy/AdvReac Type Severity Reaction Status Date / Time No Known Allergies Allergy Verified 05/03/17 02:48 - Medications Medications: Current Medications Albuterol Sulfate (Albuterol 0.042% Inhal Bri (1.25mg/3ml) Ud) 1.25 mg IH [id number] PRN PRN Reason: Shortness of Breath Albuterol/Ipratropium (Duoneb 3 Mg/0.5 Mg (3 Ml) Ud) 3 ml INH Q6 PRN PRN Reason: Shortness of Breath Last Admin: 09/04/17 07:40 Dose: 3 ml Amlodipine Besylate (Norvasc) 2.5 mg PO DAILY [facility] Last Admin: 09/03/17 15:39 Dose: 2.5 mg Atorvastatin Calcium (Lipitor) 40 mg PO DIN [facility] Last Admin: 09/03/17 17:09 Dose: 40 mg Digoxin (Digoxin) 0.125 mg PO 1400 [facility] Last Admin: 09/03/17 13:30 Dose: 0.125 mg Furosemide (Lasix) 40 mg PO DAILY [facility] Insulin Human Lispro (Humalog Low) 0 units SC ACHS [facility] PRN Reason: Protocol Last Admin: 09/03/17 22:08 Dose: Not Given Lisinopril (Zestril) 2.5 mg PO DAILY [facility] Last Admin: 09/03/17 15:40 Dose: 2.5 mg Montelukast Sodium (Singulair) 10 mg PO DAILY [facility] Last Admin: 09/03/17 09:50 Dose: 10 mg Pantoprazole Sodium (Protonix Ec Tab) 40 mg PO 0600 [facility] Last Admin: 09/04/17 06:35 Dose: 40 mg Results - Vital Signs Recent Vital Signs: Last Vital Signs Temp 98.4 F 09/04/17 06:00 Pulse 65 09/04/17 06:00 Resp 18 09/04/17 06:00 BP 104/50 L 09/04/17 06:00 Pulse Ox 98 09/04/17 06:00 - Labs Result Diagrams: 09/03/17 09:30 09/03/17 09:30 Labs: Laboratory Results - last 24 hr 09/03/17 09/03/17 09/03/17 07:50 09:30 09:30 WBC 6.5 RBC 4.07 Hgb 12.4 Hct 37.6 MCV 92.4 MCH 30.5 MCHC 33.0 RDW 13.0 Plt Count 176 MPV 11.4 H Gran % 83.6 H Lymph % (Auto) 13.0 L [place] % (Auto) 3.4 Eos % (Auto) 0.0 L Baso % (Auto) 0.0 Gran # 5.40 Lymph # (Auto) 0.8 L [place] # (Auto) 0.2 Eos # (Auto) 0.0 Baso # (Auto) 0.00 Sodium 141 Potassium 3.8 Chloride 101 Carbon Dioxide 28 Anion Gap 16 BUN 24 H Creatinine 0.8 Est GFR ( Amer) > 60 Est GFR (Non-Af Amer) > 60 POC Glucose (mg/dL) 262 H Random Glucose 214 H Calcium 9.7 Total Bilirubin 0.3 AST 24 ALT 19 Alkaline Phosphatase 66 Total Protein 6.9 Albumin 4.0 Globulin 2.9 Albumin/Globulin Ratio 1.4 09/03/17 09/03/17 09/03/17 10:48 16:24 21:53 WBC RBC Hgb Hct MCV MCH MCHC RDW Plt Count MPV Gran % Lymph % (Auto) [place] % (Auto) Eos % (Auto) Baso % (Auto) Gran # Lymph # (Auto) [place] # (Auto) Eos # (Auto) Baso # (Auto) Sodium Potassium Chloride Carbon Dioxide Anion Gap BUN Creatinine Est GFR ( Amer) Est GFR (Non-Af Amer) POC Glucose (mg/dL) 181 H 208 H 136 H Random Glucose Calcium Total Bilirubin AST ALT Alkaline Phosphatase Total Protein Albumin Globulin Albumin/Globulin Ratio
--- NOTE | 2017-09-04 08:00 | CP.PCM.PN ---
Subjective - Date & Time of Evaluation Date of Evaluation: 09/04/17 Time of Evaluation: 10:23 - Subjective Subjective: Lana Akbar PGY-1, [employer], Neurology Consult Progress Note No acute events overnight. States she is feeling better today and that she is eating and drinking well. Denies loss of consciousness, headache, dizziness, weakness, changes in vision or hearing, changes in sensation, bowel or bladder incontinence. Objective - Vital Signs/Intake and Output Vital Signs (last 24 hours): Temp Pulse Resp BP Pulse Ox 98.4 F 65 18 104/50 L 98 09/04/17 06:00 09/04/17 06:00 09/04/17 06:00 09/04/17 06:00 09/04/17 06:00 Intake and Output: 09/04/17 09/04/17 06:59 18:59 Intake Total 660 Balance 660 - Medications Medications: Current Medications Albuterol Sulfate (Albuterol 0.042% Inhal Bri (1.25mg/3ml) Ud) 1.25 mg IH [id number] PRN PRN Reason: Shortness of Breath Albuterol/Ipratropium (Duoneb 3 Mg/0.5 Mg (3 Ml) Ud) 3 ml INH Q6 PRN PRN Reason: Shortness of Breath Last Admin: 09/04/17 07:40 Dose: 3 ml Amlodipine Besylate (Norvasc) 2.5 mg PO DAILY [facility] Last Admin: 09/03/17 15:39 Dose: 2.5 mg Atorvastatin Calcium (Lipitor) 40 mg PO DIN [facility] Last Admin: 09/03/17 17:09 Dose: 40 mg Digoxin (Digoxin) 0.125 mg PO 1400 [facility] Last Admin: 09/03/17 13:30 Dose: 0.125 mg Furosemide (Lasix) 40 mg PO DAILY [facility] Insulin Human Lispro (Humalog Low) 0 units SC ACHS [facility] PRN Reason: Protocol Last Admin: 09/03/17 22:08 Dose: Not Given Lisinopril (Zestril) 2.5 mg PO DAILY [facility] Last Admin: 09/03/17 15:40 Dose: 2.5 mg Montelukast Sodium (Singulair) 10 mg PO DAILY [facility] Last Admin: 09/03/17 09:50 Dose: 10 mg Pantoprazole Sodium (Protonix Ec Tab) 40 mg PO 0600 [facility] Last Admin: 09/04/17 06:35 Dose: 40 mg - Labs Labs: 09/03/17 09:30 09/03/17 09:30 PT 11.6 SECONDS (9.4-12.5) 09/02/17 20:55 INR 1.02 (0.93-1.08) 09/02/17 20:55 APTT 30.5 Seconds (25.1-36.5) 09/02/17 20:55 - Constitutional Appears: Non-toxic, No Acute Distress - Head Exam Additional comments: Right periorbital ecchymosis - Eye Exam Eye Exam: EOMI, PERRL Pupil Exam: NORMAL ACCOMODATION - ENT Exam ENT Exam: Mucous Membranes Moist, Normal Exam - Neck Exam Neck Exam: Normal Inspection - Respiratory Exam Respiratory Exam: Decreased Breath Sounds, Wheezes, NORMAL BREATHING PATTERN - Cardiovascular Exam Cardiovascular Exam: REGULAR RHYTHM, +S1, +S2 - GI/Abdominal Exam GI & Abdominal Exam: Soft, Normal Bowel Sounds. absent: Distended, Firm - Extremities Exam Extremities Exam: Normal Inspection. absent: Calf Tenderness - Back Exam Back Exam: NORMAL INSPECTION - Neurological Exam Neurological Exam: Alert, Awake, CN II-XII Intact, Oriented x3 Neuro motor strength exam: Left Upper Extremity: 5, Right Upper Extremity: 5, Left Lower Extremity: 5, Right Lower Extremity: 5 Additional comments: Mild dysmetria Shuffling, steady gait - Psychiatric Exam Psychiatric exam: Normal Affect, Normal Mood - Skin Skin Exam: Dry, Intact, Normal Color Assessment and Plan - Assessment and Plan (Free Text) Assessment: 87 year old female with past medical history that includes COPD, CAD, CHF, TIA, DM2, HLD and HTN who presents with CT head evidence of subarachnoid and subdural hematoma secondary to trauma from mechanical fall vs. syncope. Plan: Syncope - Head CT (09/02) shows small acute subarachnoid hemorrhage in right parietal lobe and right posterior temporal lobe, small subdural hematoma over right temporal lobe - Repeat head CT (09/03) shows decreased small thin subdural hematoma in right temporal region in comparison to previous CT, unchanged small amount of subarachnoid hemorrhage in the right parietal and posterior temporal lobes - EEG preliminary read normal - Head and neck CTA shows mild stenosis of right and left carotid arteries with tortuosity, normal vertebral arteries, right sided thyroid mass, unremarkable internal, anterior, middle cerebral arteries, unremarkable posterior circulation - Orthostatic vital signs negative for hypotension - Followup outpatient with steam press operator for loop recorder for senior living evaluation of possible arrhythmia - Further recommendations per Dr. Vasques Case discussed and plan approved by attending physician Dr. Caprice Akbar PGY-1
[2017-09-04] MEDS: Insulin Lispro (humaLOG) LOW Coverage SC SCH ×4 (08:15→22:10)
--- NOTE | 2017-09-04 09:22 | CON ---
DATE: 09/04/2017 HISTORY OF PRESENT ILLNESS: This is an 87-year-old woman, known to me, admitted on 09/02/2017 with a syncopal spell. Apparently, she fell to the floor with facial and head trauma suffering small subdural hematomas, laceration over the right eye and periorbital ecchymosis. She does not recall what happened, just that she suddenly found herself on the floor. She did not experience chest pain, shortness of breath, palpitations, lightheadedness or dizziness. There is no orthopnea, PND, prior syncope, fever, chills, cough, sputum production, hemoptysis, abdominal pain, nausea, vomiting, diarrhea, constipation or melena. PAST MEDICAL HISTORY: Notable for severe COPD. She is a former heavy smoker. She was admitted in 2016 with respiratory failure and found to have acute myocardial infarction. Echocardiography at that time showed severe LV dysfunction as well as moderate mitral regurgitation and tricuspid regurgitation. She was treated medically at that time. There is a history of hypertension, diabetes, cerebrovascular disease, pulmonary nodule, thyroid nodule, hypertension, arthritis, GERD, cataracts and gait instability with falls.. MEDICATIONS AT THE TIME OF ADMISSION: Include Lipitor, Lasix, Singulair, Amaryl, Protonix, digoxin, DuoNebs, aspirin. ALLERGIES: THERE ARE NO MEDICATION ALLERGIES REPORTED. SOCIAL HISTORY: She lives at home. She no longer smokes. Rare alcohol use. She is ambulatory. FAMILY HISTORY: Noncontributory. REVIEW OF SYSTEMS: Ten-point review of systems otherwise unremarkable except as noted above. PHYSICAL EXAMINATION: GENERAL: She is a well-developed elderly woman, lying in bed on telemetry, in no acute distress. VITAL SIGNS: Notable for sinus rhythm. She is afebrile, pulse 65, blood pressure 104/50, respirations 18, O2 sat 97-98% on nasal cannula and room air. HEENT: Reveals no neck vein distention, thyromegaly or carotid bruits. LUNGS: Lung scott are clear. HEART: Examination of the heart revealed normal first and second heart sounds. There is a soft systolic murmur along the left sternal border. ABDOMEN: Soft. Bowel sounds present. No mass, organomegaly, tenderness, rebound or guarding. No CVA tenderness. No palpable abdominal aortic aneurysm. EXTREMITIES: Revealed no cyanosis, clubbing or edema. NEUROLOGICAL: She is awake, alert and oriented. SKIN: Warm and dry. No rash or cellulitis. There is a laceration above her right eyebrow and periorbital ecchymosis on the right. LABORATORY DATA AND IMAGING: A chest x-ray revealed no active disease. A CT scan of the head revealed small amount of acute subarachnoid hemorrhage in the right parietal lobe and the right posterior temporal lobe. There is a small thin subdural hematoma over the right temporal lobe. Shoulder x-ray and elbow x-ray were unremarkable. Hip and pelvis x-ray was a negative study. The EKG demonstrated regular sinus rhythm, sinus tachycardia. No acute changes. White count, hemoglobin and hematocrit, platelet count unremarkable. PT, INR, PTT unremarkable. Electrolytes, BUN, creatinine unremarkable. Blood sugars are noted. LFTs are unremarkable. Troponin less than 0.01, BNP 159, total cholesterol 238, LDL 138, HDL 75, triglycerides 109, TSH normal. IMPRESSION: Claudia Pritchett is an 87-year-old woman with severe chronic obstructive pulmonary disease. She suffered a myocardial infarction and had severe left ventricular dysfunction documented in 2015. A subsequent echocardiogram in 03/2017 revealed normal left ventricular function. Postural signs have been unremarkable. No arrhythmia has been detected on telemetry. The etiology of her syncopal spell is unclear. She is being followed by Neurosurgery and Neurology. Additional testing and imaging are ordered. I will repeat her echocardiogram to clarify her left ventricular function status. We will continue current cardiac medications including digoxin, furosemide, Lipitor, amlodipine, lisinopril. I will check a digoxin level. I will follow along with you. I will make additional recommendations based on her clinical course. Arron Bobby MD [facility]
--- NOTE | 2017-09-04 09:59 | CT ---
Date of service: 09/03/2017 PROCEDURE: CT HEAD WITHOUT CONTRAST. HISTORY: evaluate progression of subdural hematoma COMPARISON: 09/02/2017 TECHNIQUE: Axial computed tomography images were obtained through the head/brain without intravenous contrast. Radiation dose: Total exam DLP = 732 mGy-cm. This CT exam was performed using one or more of the following dose reduction techniques: Automated exposure control, adjustment of the mA and/or kV according to patient size, and/or use of iterative reconstruction technique. FINDINGS: HEMORRHAGE: The small amount of subarachnoid hemorrhage in the right parietal and posterior temporal lobes are unchanged. The small thin subdural hematoma in the right temporal region has decreased in size. BRAIN: No mass effect or edema. No atrophy or chronic microvascular ischemic changes. VENTRICLES: Unremarkable. No hydrocephalus. CALVARIUM: Unremarkable. PARANASAL SINUSES: Unremarkable as visualized. No significant inflammatory changes. MASTOID AIR CELLS: Unremarkable as visualized. No inflammatory changes. OTHER FINDINGS: The report concurs with the preliminary [facility] report IMPRESSION: The small amount of subarachnoid hemorrhage in the right parietal and posterior temporal lobes are unchanged. The small thin subdural hematoma in the right temporal region has decreased in size.
--- NOTE | 2017-09-04 10:09 | CT ---
Date of service: 09/03/2017 PROCEDURE: CT Angiography of the neck with contrast HISTORY: r/o aneurysm, carotid stenosis COMPARISON: None available. TECHNIQUE: Contiguous axial images of the neck were obtained from the level of the skull-base to the superior mediastinum in the arteriographic phase of enhancement. Coronal and sagittal reformats or also generated. IV contrast dose: Radiation Dose - DLP: mGy-cm This CT exam was performed using one or more of the following dose reduction techniques: Automated exposure control, adjustment of the mA and/or kV according to patient size, and/or use of iterative reconstruction technique. FINDINGS: RIGHT CAROTID ARTERIES: Mild stenosis of the internal carotid. Tortuosity LEFT CAROTID ARTERIES: Mild stenosis of the internal carotid with tortuosity VERTEBRAL ARTERIES: Right Vertebral Artery: Normal. Left Vertebral Artery: Normal. OTHER FINDINGS: There is a right-sided thyroid mass measuring 24 x 29 mm IMPRESSION: Mild stenosis of the internal carotids bilaterally with tortuosity Right-sided thyroid mass PROCEDURE: CT Angiography of the Brain. HISTORY: r/o aneurysm, carotid stenosis COMPARISON: None available. TECHNIQUE: CT angiography of the intracranial arteries was performed. Coronal and sagittal maximum intensity projection reformated images were generated. This CT exam was performed using one or more of the following dose reduction techniques: Automated exposure control, adjustment of the mA and/or kV according to patient size, and/or use of iterative reconstruction technique. FINDINGS: INTERNAL CEREBRAL ARTERIES: Unremarkable. The skull base, petrous, cavernous and supraclinoid segments are bilaterally widely patent. ANTERIOR CEREBRAL ARTERIES: Unremarkable. A1 and A2 segments are widely patent. Smaller distal branches unremarkable, as visualized. MIDDLE CEREBRAL ARTERIES: Unremarkable. M1 and M2 segments are widely patent. Perisylvian branches grossly symmetric. POSTERIOR CIRCULATION: Basilar Artery: Unremarkable. Distal Vertebral Arteries: Unremarkable. Posterior Cerebral Arteries: Unremarkable. Posterior Inferior Cerebellar Arteries: Unremarkable. ANEURYSM/ VASCULAR MALFORMATIONS: None. OTHER FINDINGS: None. IMPRESSION: Unremarkable CT Angiography of the Brain.
[2017-09-04 11:44] LABS: BASO # 0.01 K/mm3 (0.0-2.0); BASO % 0.1 % (0.0-3.0); EOS # 0.2 (0.0-0.7); GRAN # 7.02 (1.4-6.5); GRAN % 64.6 % (50.0-68.0); HEMOGLOBIN 12.8 g/dL (12.0-16.0); LYMPH # 2.8 (1.2-3.4); LYMPH % 26.2 % (22.0-35.0); MEAN CELL VOLUME 95.7 fl (80.0-105.0); MEAN CORPUSCULAR HEMOGLOBIN 30.8 pg (25.0-35.0); MEAN CORPUSCULAR HGB CONC 32.2 g/dl (31.0-37.0); MEAN PLATELET VOLUME 11.6 fl (7.0-11.0); MONO # 0.8 (0.1-0.6); MONO % 7.1 % (1.0-6.0); RBC 4.15 10^6/uL (3.5-6.1); RED CELL DISTRIBUTION WIDTH 13.3 % (11.5-14.5); WHITE BLOOD COUNT 10.9 10^3/ul (4.5-11.0)
[2017-09-04 12:04] LABS: ALB/GLOB RATIO 1.3 (1.1-1.8); ALT/SGPT 25 U/L (7-56); AST/SGOT 24 U/L (14-36); BLOOD UREA NITROGEN 24 mg/dL (7-21); CALCIUM 9.1 mg/dL (8.4-10.5); GFR AFRICAN-AMERICAN > 60; GFR NON-AFRICAN AMERICAN > 60
[2017-09-04] MEDS ORDERED: Potassium Chloride 20 mEq ER Tab PO ONE (13:34)
[2017-09-04] MEDS: Digoxin 125 mcg (0.125 mg) Tab PO SCH (13:45)
--- NOTE | 2017-09-04 19:50 | CP.PCM.PN ---
<Marvin Ortega - Last Filed: 09/04/17 19:47> Subjective - Date & Time of Evaluation Date of Evaluation: 09/04/17 Time of Evaluation: 07:00 - Subjective Subjective: Medicine progress note for Dr. Antunez: RADHA Ortega PGY - 2 Patient seen and examined at bedside. NO acute overnight events. Patient denies any acute complaints including any pain, loss of vision, confusion, or dizziness. Objective - Vital Signs/Intake and Output Vital Signs (last 24 hours): Temp Pulse Resp BP Pulse Ox 98.6 F 86 19 130/73 19 L 09/04/17 17:42 09/04/17 18:00 09/04/17 17:42 09/04/17 17:42 09/04/17 11:48 Intake and Output: 09/04/17 09/05/17 18:59 06:59 Intake Total 660 Output Total 700 Balance -40 - Medications Medications: Current Medications Albuterol Sulfate (Albuterol 0.042% Inhal Bri (1.25mg/3ml) Ud) 1.25 mg IH [id number] PRN PRN Reason: Shortness of Breath Albuterol/Ipratropium (Duoneb 3 Mg/0.5 Mg (3 Ml) Ud) 3 ml INH Q6 PRN PRN Reason: Shortness of Breath Last Admin: 09/04/17 17:41 Dose: 3 ml Amlodipine Besylate (Norvasc) 2.5 mg PO DAILY [facility] Last Admin: 09/04/17 10:44 Dose: 2.5 mg Atorvastatin Calcium (Lipitor) 40 mg PO DIN [facility] Last Admin: 09/04/17 17:25 Dose: 40 mg Digoxin (Digoxin) 0.125 mg PO 1400 [facility] Last Admin: 09/04/17 13:45 Dose: 0.125 mg Furosemide (Lasix) 40 mg PO DAILY [facility] Last Admin: 09/04/17 10:44 Dose: 40 mg Insulin Human Lispro (Humalog Low) 0 units SC ACHS [facility] PRN Reason: Protocol Last Admin: 09/04/17 17:00 Dose: Not Given Lisinopril (Zestril) 2.5 mg PO DAILY [facility] Last Admin: 09/04/17 10:44 Dose: 2.5 mg Montelukast Sodium (Singulair) 10 mg PO DAILY [facility] Last Admin: 09/04/17 10:44 Dose: 10 mg Pantoprazole Sodium (Protonix Ec Tab) 40 mg PO 0600 [facility] Last Admin: 09/04/17 06:35 Dose: 40 mg - Labs Labs: 09/04/17 11:35 09/04/17 11:35 PT 11.6 SECONDS (9.4-12.5) 09/02/17 20:55 INR 1.02 (0.93-1.08) 09/02/17 20:55 APTT 30.5 Seconds (25.1-36.5) 09/02/17 20:55 - Constitutional Appears: Well - Head Exam Head Exam: ATRAUMATIC, NORMOCEPHALIC. absent: NORMAL INSPECTION (Patient has ecchymosis around her R eye) - Eye Exam Eye Exam: EOMI, Normal appearance, Periorbital swelling (R eye has echymosis around it), PERRL Pupil Exam: NORMAL ACCOMODATION, PERRL - ENT Exam ENT Exam: Mucous Membranes Moist, Normal Exam - Neck Exam Neck Exam: Full ROM, Normal Inspection. absent: Lymphadenopathy - Respiratory Exam Respiratory Exam: Clear to Ausculation Bilateral, NORMAL BREATHING PATTERN - Cardiovascular Exam Cardiovascular Exam: REGULAR RHYTHM, +S1, +S2. absent: Murmur - GI/Abdominal Exam GI & Abdominal Exam: Soft, Normal Bowel Sounds. absent: Tenderness - Extremities Exam Extremities Exam: Full ROM, Normal Capillary Refill, Normal Inspection. absent : Joint Swelling, Pedal Edema Additional comments: cut above right orbit. Hematoma around right orbit. some bruising on right arm - Back Exam Back Exam: NORMAL INSPECTION - Neurological Exam Neurological Exam: Alert, Awake, CN II-XII Intact, Normal Gait, Oriented x3 - Psychiatric Exam Psychiatric exam: Normal Affect, Normal Mood - Skin Skin Exam: Dry, Intact, Normal Color, Warm Assessment and Plan - Assessment and Plan (Free Text) Assessment: Pt is an 87 year old female whose PMH includes COPD, CAD, CHF, TIA, DM2, HLD, and HTN who presents to the emergency department after a witnessed fall/ syncope at [facility]. Head CT X 2 show unchanged small hemorrhage. Extremity XR's are negative for any fractures. At this time, patient's syncopal etiology is uncertain CTA H/N negative for acute process. Orthostatics were negative and ECHO is pending; preliminary EEG normal Plan Fall 2/2 Syncope VS Mechanical - ECHO still pending - Pending final ECHO results, patient should follow up as an outpatient with a clay shop supervisor for a loop recorder Hx COPD - Continue with Duonebs and Albuterol - Continue with Singulair Hx CAD - Hold ASA 2/2 small SAH in brain - Continue with Lipitor Hx CHF - Continue with Lasix, Dig Hx DM2 - Hold home oral meds - Continue with RISS Low Hx HTN - Continue with Norvasc, Zestril GI/DVT PPX - Protonix/SCDs <Garfield Antunez A - Last Filed: 09/05/17 07:01> Objective - Vital Signs/Intake and Output Vital Signs (last 24 hours): Temp Pulse Resp BP Pulse Ox 97.8 F 66 20 102/60 98 09/05/17 06:00 09/05/17 06:00 09/05/17 06:00 09/05/17 06:00 09/05/17 06:00 Intake and Output: 09/04/17 09/05/17 18:59 06:59 Intake Total 660 480 Output Total 700 400 Balance -40 80 - Medications Medications: Current Medications Albuterol Sulfate (Albuterol 0.042% Inhal Bri (1.25mg/3ml) Ud) 1.25 mg IH [id number] PRN PRN Reason: Shortness of Breath Albuterol/Ipratropium (Duoneb 3 Mg/0.5 Mg (3 Ml) Ud) 3 ml INH Q6 PRN PRN Reason: Shortness of Breath Last Admin: 09/04/17 20:38 Dose: 3 ml Amlodipine Besylate (Norvasc) 2.5 mg PO DAILY [facility] Last Admin: 09/04/17 10:44 Dose: 2.5 mg Atorvastatin Calcium (Lipitor) 40 mg PO DIN [facility] Last Admin: 09/04/17 17:25 Dose: 40 mg Digoxin (Digoxin) 0.125 mg PO 1400 [facility] Last Admin: 09/04/17 13:45 Dose: 0.125 mg Furosemide (Lasix) 40 mg PO DAILY [facility] Last Admin: 09/04/17 10:44 Dose: 40 mg Insulin Human Lispro (Humalog Low) 0 units SC ACHS [facility] PRN Reason: Protocol Last Admin: 09/04/17 22:10 Dose: Not Given Lisinopril (Zestril) 2.5 mg PO DAILY [facility] Last Admin: 09/04/17 10:44 Dose: 2.5 mg Montelukast Sodium (Singulair) 10 mg PO DAILY [facility] Last Admin: 09/04/17 10:44 Dose: 10 mg Pantoprazole Sodium (Protonix Ec Tab) 40 mg PO 0600 [facility] Last Admin: 09/05/17 06:48 Dose: 40 mg - Labs Labs: 09/04/17 11:35 09/04/17 11:35 PT 11.6 SECONDS (9.4-12.5) 09/02/17 20:55 INR 1.02 (0.93-1.08) 09/02/17 20:55 APTT 30.5 Seconds (25.1-36.5) 09/02/17 20:55 Attending/Attestation - Attestation I have personally seen and examined this patient.: Yes I have fully participated in the care of the patient.: Yes I have reviewed all pertinent clinical information, including history, physical exam and plan: Yes Notes (Text): 09/04/17 87 year old female with past medical history of COPD, CHF, CAD, TIA, hypertension and diabetes who presented s/p fall and syncope. CT head showed small acute subarachnoid hemorrhage and small subdural hematoma. Repeat CT head showed no changes. Neurosurgery evaluation was appreciated; no acute intervention recommended. Aspirin is on hold for now. Neurology and cardiology evaluation were appreciated as well. EEG, echocardiogram and CTA head and neck were ordered. PT evaluation was appreciated who recommended TCU, however patient is refusing. Possible d/c planning home with services. Garfield Antunez MD Hospitalist.
[2017-09-05] MEDS: Pantoprazole 40 mg EC Tab PO SCH (06:48)
[2017-09-05 07:00] LABS: BASO # 0.03 K/mm3 (0.0-2.0); BASO % 0.4 % (0.0-3.0); EOS # 0.5 (0.0-0.7); EOS % 6.8 % (1.5-5.0); GRAN # 3.31 (1.4-6.5); GRAN % 44.1 % (50.0-68.0); HEMOGLOBIN 11.6 g/dL (12.0-16.0); LYMPH # 3.1 (1.2-3.4); LYMPH % 40.8 % (22.0-35.0); MEAN CELL VOLUME 95.3 fl (80.0-105.0); MEAN CORPUSCULAR HEMOGLOBIN 30.1 pg (25.0-35.0); MEAN CORPUSCULAR HGB CONC 31.6 g/dl (31.0-37.0); MEAN PLATELET VOLUME 11.8 fl (7.0-11.0); MONO # 0.6 (0.1-0.6); MONO % 7.9 % (1.0-6.0); RBC 3.85 10^6/uL (3.5-6.1); RED CELL DISTRIBUTION WIDTH 13.3 % (11.5-14.5); WHITE BLOOD COUNT 7.5 10^3/ul (4.5-11.0)
[2017-09-05] MEDS ORDERED: Potassium Chloride 20 mEq ER Tab PO STA (07:35)
--- NOTE | 2017-09-05 07:41 | CARD ---
APPROVED REPORT Date of service: 09/04/2017 EXAM: Two-dimensional and M-mode echocardiogram with Doppler and color Doppler. Other Information Quality : AverageRhythm : INDICATION Syncope 2D DIMENSIONS Left Atrium (2D)4.0 (1.6-4.0cm)IVSd1.1 (0.7-1.1cm) LVDd3.8 (3.9-5.9cm)PWd1.0 (0.7-1.1cm) LVDs2.3 (2.5-4.0cm)FS (%) 38.1 % LVEF (%)69.0 (>50%) M-Mode DIMENSIONS Aortic Root2.90 (2.2-3.7cm)Aortic Cusp Exc.1.60 (1.5-2.0cm) Aortic Valve AoV Peak Jvcljyda589.0cm/Michelle P 1/2 [id number] Mitral Valve MV E Jrqniqob35.9cm/sMV A Ztvjrihq47.3cm/sE/A ratio1.0 TDI Lateral E' Peak V7.31cm/sMedial E' Peak V6.14cm/sE/Lateral E'12.6 E/Medial E'15.0 Pulmonary Valve PV Peak Bvuntryt82.5cm/sPV Peak Grad.3mmHg Tricuspid Valve TR Peak [id number]/sRAP [id number] Peak Gr.43mmHg [id number] LEFT VENTRICLE The left ventricle is normal size. There is normal left ventricular wall thickness. The left ventricular function is normal. The left ventricular ejection fraction is within the normal range. There is normal LV segmental wall motion. RIGHT VENTRICLE The right ventricle is normal size. ATRIA The left atrium size is normal. The right atrium size is normal. The interatrial septum is intact with no evidence for an atrial septal defect. AORTIC VALVE The aortic valve is mildly calcified. There is trace aortic regurgitation. MITRAL VALVE The mitral valve is normal in structure. Mitral regurgitation is trace. TRICUSPID VALVE The tricuspid valve is normal in structure. There is moderate tricuspid regurgitation. There is moderate pulmonary hypertension. PULMONIC VALVE The pulmonic valve is not well visualized. GREAT VESSELS The aortic root is normal in size. PERICARDIAL EFFUSION There is no pericardial effusion. <Conclusion> The left ventricle is normal size. There is normal left ventricular wall thickness. The left ventricular function is normal. Moderate TR. There is moderate pulmonary hypertension.
--- NOTE | 2017-09-05 07:51 | CP.PCM.PN ---
Subjective - Date & Time of Evaluation Date of Evaluation: 09/05/17 Time of Evaluation: 07:00 - Subjective Subjective: Stable on 2R. She feels OK. No CP, SOB, Dizziness. V/S noted. RSR PE: Lungs: clear Cor.: S1S2 Abd.: soft Ext.: no edema Neuro.: alert I/O= 1140/110 Labs noted: 09/04 K+= 3.3 BC X2 NG at 48 hrs. Echo: Nl LV fx., moderate TR and PH. Objective - Vital Signs/Intake and Output Vital Signs (last 24 hours): Temp Pulse Resp BP Pulse Ox 97.8 F 66 20 102/60 98 09/05/17 06:00 09/05/17 06:00 09/05/17 06:00 09/05/17 06:00 09/05/17 06:00 Intake and Output: 09/05/17 09/05/17 06:59 18:59 Intake Total 480 Output Total 400 Balance 80 - Medications Medications: Current Medications Albuterol Sulfate (Albuterol 0.042% Inhal Bri (1.25mg/3ml) Ud) 1.25 mg IH [id number] PRN PRN Reason: Shortness of Breath Albuterol/Ipratropium (Duoneb 3 Mg/0.5 Mg (3 Ml) Ud) 3 ml INH Q6 PRN PRN Reason: Shortness of Breath Last Admin: 09/04/17 20:38 Dose: 3 ml Amlodipine Besylate (Norvasc) 2.5 mg PO DAILY [facility] Last Admin: 09/04/17 10:44 Dose: 2.5 mg Atorvastatin Calcium (Lipitor) 40 mg PO DIN [facility] Last Admin: 09/04/17 17:25 Dose: 40 mg Digoxin (Digoxin) 0.125 mg PO 1400 [facility] Last Admin: 09/04/17 13:45 Dose: 0.125 mg Furosemide (Lasix) 40 mg PO DAILY [facility] Last Admin: 09/04/17 10:44 Dose: 40 mg Insulin Human Lispro (Humalog Low) 0 units SC ACHS [facility] PRN Reason: Protocol Last Admin: 09/04/17 22:10 Dose: Not Given Lisinopril (Zestril) 2.5 mg PO DAILY [facility] Last Admin: 09/04/17 10:44 Dose: 2.5 mg Montelukast Sodium (Singulair) 10 mg PO DAILY [facility] Last Admin: 09/04/17 10:44 Dose: 10 mg Pantoprazole Sodium (Protonix Ec Tab) 40 mg PO 0600 [facility] Last Admin: 09/05/17 06:48 Dose: 40 mg Potassium Chloride (K-Dur 20 Meq Er Tab) 40 meq PO STAT [facility] Stop: 09/05/17 07:36 - Labs Labs: 09/05/17 06:00 09/04/17 11:35 PT 11.6 SECONDS (9.4-12.5) 09/02/17 20:55 INR 1.02 (0.93-1.08) 09/02/17 20:55 APTT 30.5 Seconds (25.1-36.5) 09/02/17 20:55 Assessment and Plan - Assessment and Plan (Free Text) Assessment: Syncope with head and facial trauma SDH COPD CAD/ND/Current echo shows Nl LV fx. and mod. TR and mod. PH HBP TIA Pulmonary Nodule Thyroid nodule DJD Plan: As per Neuro., Neurosurgery, Medical Team Dig. Level pending. Replace K+ Out-pt f/u
[2017-09-05 07:57] LABS: ALB/GLOB RATIO 1.2 (1.1-1.8); ALBUMIN 3.4 g/dL (3.0-4.8); ALT/SGPT 26 U/L (7-56); AST/SGOT 20 U/L (14-36); BLOOD UREA NITROGEN 22 mg/dL (7-21); CALCIUM 8.8 mg/dL (8.4-10.5); GFR AFRICAN-AMERICAN > 60; GFR NON-AFRICAN AMERICAN > 60
[2017-09-05] MEDS: Insulin Lispro (humaLOG) LOW Coverage SC SCH ×3 (08:00→17:56)
[2017-09-05 13:03] VITALS: RESP 18
[2017-09-05] MEDS: Digoxin 125 mcg (0.125 mg) Tab PO SCH (14:01)
[2017-09-05 14:04] VITALS: PULSE 86
--- NOTE | 2017-09-05 17:06 | CP.PCM.DIS ---
<Scotty Smallwood - Last Filed: 09/05/17 17:43> Provider - Provider Date of Admission: 09/03/17 00:02 Attending physician: Garfield Antunez MD Primary care physician: JAVIER FAMILY PROVIDER Consults: Neurosurgery- John, Neurology-Caprice, Cardiology-Diamante Time Spent in preparation of Discharge (in minutes): 45 Diagnosis - Discharge Diagnosis (1) CAD (coronary artery disease) Status: Chronic (2) HTN (hypertension) Status: Chronic (3) HLD (hyperlipidemia) Status: Chronic Hospital Course - Lab Results Lab Results: Most Recent Lab Values WBC 7.5 10^3/ul (4.5-11.0) D 09/05/17 06:00 RBC 3.85 10^6/uL (3.5-6.1) 09/05/17 06:00 Hgb 11.6 g/dL (12.0-16.0) L 09/05/17 06:00 Hct 36.7 % (36.0-48.0) 09/05/17 06:00 MCV 95.3 fl (80.0-105.0) 09/05/17 06:00 MCH 30.1 pg (25.0-35.0) 09/05/17 06:00 MCHC 31.6 g/dl (31.0-37.0) 09/05/17 06:00 RDW 13.3 % (11.5-14.5) 09/05/17 06:00 Plt Count 166 10^3/uL (120.0-450.0) 09/05/17 06:00 MPV 11.8 fl (7.0-11.0) H 09/05/17 06:00 Gran % 44.1 % (50.0-68.0) L 09/05/17 06:00 Lymph % (Auto) 40.8 % (22.0-35.0) H 09/05/17 06:00 [place] % (Auto) 7.9 % (1.0-6.0) H 09/05/17 06:00 Eos % (Auto) 6.8 % (1.5-5.0) H 09/05/17 06:00 Baso % (Auto) 0.4 % (0.0-3.0) 09/05/17 06:00 Gran # 3.31 (1.4-6.5) 09/05/17 06:00 Lymph # (Auto) 3.1 (1.2-3.4) 09/05/17 06:00 [place] # (Auto) 0.6 (0.1-0.6) 09/05/17 06:00 Eos # (Auto) 0.5 (0.0-0.7) 09/05/17 06:00 Baso # (Auto) 0.03 K/mm3 (0.0-2.0) 09/05/17 06:00 PT 11.6 SECONDS (9.4-12.5) 09/02/17 20:55 INR 1.02 (0.93-1.08) 09/02/17 20:55 APTT 30.5 Seconds (25.1-36.5) 09/02/17 20:55 Sodium 143 mmol/L (132-148) 09/05/17 06:00 Potassium 4.2 mmol/L (3.6-5.0) 09/05/17 06:00 Chloride 103 mmol/L (98-107) 09/05/17 06:00 Carbon Dioxide 33 mmol/L (21-33) 09/05/17 06:00 Anion Gap 11 (10-20) 09/05/17 06:00 BUN 22 mg/dL (7-21) H 09/05/17 06:00 Creatinine 0.8 mg/dl (0.7-1.2) 09/05/17 06:00 Est GFR ( Amer) > 60 09/05/17 06:00 Est GFR (Non-Af Amer) > 60 09/05/17 06:00 POC Glucose (mg/dL) 97 mg/dL (65-110) 09/05/17 07:06 Random Glucose 106 mg/dL (70-110) 09/05/17 06:00 Hemoglobin A1c 6.7 % (4.2-6.5) H 09/02/17 20:55 Calcium 8.8 mg/dL (8.4-10.5) 09/05/17 06:00 Magnesium 2.1 mg/dL (1.7-2.2) 09/05/17 06:00 Total Bilirubin 0.4 mg/dL (0.2-1.3) 09/05/17 06:00 AST 20 U/L (14-36) 09/05/17 06:00 ALT 26 U/L (7-56) 09/05/17 06:00 Alkaline Phosphatase 62 U/L (38-126) 09/05/17 06:00 Lactate Dehydrogenase 476 U/L (333-699) 09/02/17 20:55 Total Creatine Kinase 36 U/L (35-230) 09/02/17 20:55 Troponin I < 0.01 ng/mL 09/02/17 20:55 NT-Pro-B Natriuret Pep 159 pg/mL (0-450) 09/02/17 20:55 Total Protein 6.1 g/dL (5.8-8.3) 09/05/17 06:00 Albumin 3.4 g/dL (3.0-4.8) 09/05/17 06:00 Globulin 2.8 gm/dL 09/05/17 06:00 Albumin/Globulin Ratio 1.2 (1.1-1.8) 09/05/17 06:00 Triglycerides 109 mg/dL (35-160) 09/02/17 20:55 Cholesterol 238 mg/dL (130-200) H 09/02/17 20:55 LDL Cholesterol Direct 138 mg/dL (0-129) H 09/02/17 20:55 HDL Cholesterol 75 mg/dL (29-60) H 09/02/17 20:55 TSH 3rd Generation 1.79 mIU/mL (0.46-4.68) 09/02/17 20:55 Urine Color Dark yellow (YELLOW) 09/03/17 01:10 Urine Appearance Sl cloudy (CLEAR) 09/03/17 01:10 Urine pH 6.0 (4.7-8.0) 09/03/17 01:10 Ur Specific [place] 1.010 (1.005-1.035) 09/03/17 01:10 Urine Protein Negative mg/dL (<30 mg/dL) 09/03/17 01:10 Urine Glucose (UA) Negative mg/dL (NEGATIVE) 09/03/17 01:10 Urine Ketones Negative mg/dL (NEGATIVE) 09/03/17 01:10 Urine Blood Trace-intact (NEGATIVE) H 09/03/17 01:10 Urine Nitrate Negative (NEGATIVE) 09/03/17 01:10 Urine Bilirubin Negative (NEGATIVE) 09/03/17 01:10 Urine Urobilinogen 0.2 E.U./dL (<1 E.U./dL) 09/03/17 01:10 Ur Leukocyte Esterase Small Candy/uL (NEGATIVE) H 09/03/17 01:10 Urine RBC 0 - 2 /hpf (0-2) 09/03/17 01:10 Urine WBC 1 - 3 /hpf (0-6) 09/03/17 01:10 Ur Epithelial Cells 3 - 4 /hpf (0-5) 09/03/17 01:10 Urine Bacteria Few (NEG) 09/03/17 01:10 Hyaline Casts 0 - 2 /hpf 09/03/17 01:10 Urine Other Mucus 09/03/17 01:10 Digoxin 0.6 ng/mL (0.8-2.0) L 09/05/17 06:00 - Hospital Course Hospital Course: 87 year old female with past medical history of COPD, CHF, CAD, TIA, hypertension and diabetes who presented after a fall and syncope. CT head showed small acute subarachnoid hemorrhage and small subdural hematoma. Repeat CT head showed no changes. Hip pelvis and elbow x-rays were negative. Neurosurgery evaluation was received- no acute intervention recommended. Aspirin was put on hold due to bleed. Neurology and cardiology evaluation were completed. EEG was normal without focal slowing and without seizure activity. Echocardiogram showed LVEF of 69% and CTA head and neck was unremarkable. Patient received breathing treatments for COPD. Respiratory Therapy performed a 6 minute walk test, which showed that patient's O2 saturation was 94% while ambulating. Patient was agreeable to discharge home, and all questions were answered fully with patient's understanding. Discharge Exam - Head Exam Head Exam: ATRAUMATIC, NORMOCEPHALIC. absent: NORMAL INSPECTION (Patient has ecchymosis around her R eye) - Eye Exam Eye Exam: EOMI Additional comments: Healing large hematoma surrounding R eye. No active bleeding. - ENT Exam ENT Exam: Mucous Membranes Moist - Neck Exam Neck exam: Full Rom - Respiratory Exam Respiratory Exam: NORMAL BREATHING PATTERN, UNREMARKABLE. absent: Chest Wall Tenderness - Cardiovascular Exam Cardiovascular Exam: RRR, +S1, +S2 - GI/Abdominal Exam GI & Abdominal Exam: Normal Bowel Sounds, Soft. absent: Tenderness - Neurological Exam Neurological exam: Alert, Oriented x3 - Psychiatric Exam Psychiatric exam: Normal Affect, Normal Mood - Skin Skin Exam: Dry, Normal Color, Warm Discharge Plan - Follow Up Plan Condition: FAIR Disposition: DISCHARGED TO HOME CARE Instructions: Chronic Obstructive Pulmonary Disease (COPD), Including Emphysema , Subdural Hematoma, Syncope (Fainting) (DC), Inhalers Additional Instructions: 1. Continue Aspirin 81 mg at home daily. Continue with your other medications as well. 2. Please follow up with ediphone operator outpatient regarding procedure for loop recorder placement. 3. Should symptoms reoccur or worsen, please return to nearest emergency department. Referrals: FAMILY PROVIDER,NO [Primary Care Provider] - <Garfield Antunez - Last Filed: 09/05/17 18:30> Provider - Provider Date of Admission: 09/03/17 00:02 Attending physician: Garfield Antunez MD Primary care physician: JAVIER FAMILY PROVIDER Hospital Course - Lab Results Lab Results: Most Recent Lab Values WBC 7.5 10^3/ul (4.5-11.0) D 09/05/17 06:00 RBC 3.85 10^6/uL (3.5-6.1) 09/05/17 06:00 Hgb 11.6 g/dL (12.0-16.0) L 09/05/17 06:00 Hct 36.7 % (36.0-48.0) 09/05/17 06:00 MCV 95.3 fl (80.0-105.0) 09/05/17 06:00 MCH 30.1 pg (25.0-35.0) 09/05/17 06:00 MCHC 31.6 g/dl (31.0-37.0) 09/05/17 06:00 RDW 13.3 % (11.5-14.5) 09/05/17 06:00 Plt Count 166 10^3/uL (120.0-450.0) 09/05/17 06:00 MPV 11.8 fl (7.0-11.0) H 09/05/17 06:00 Gran % 44.1 % (50.0-68.0) L 09/05/17 06:00 Lymph % (Auto) 40.8 % (22.0-35.0) H 09/05/17 06:00 [place] % (Auto) 7.9 % (1.0-6.0) H 09/05/17 06:00 Eos % (Auto) 6.8 % (1.5-5.0) H 09/05/17 06:00 Baso % (Auto) 0.4 % (0.0-3.0) 09/05/17 06:00 Gran # 3.31 (1.4-6.5) 09/05/17 06:00 Lymph # (Auto) 3.1 (1.2-3.4) 09/05/17 06:00 [place] # (Auto) 0.6 (0.1-0.6) 09/05/17 06:00 Eos # (Auto) 0.5 (0.0-0.7) 09/05/17 06:00 Baso # (Auto) 0.03 K/mm3 (0.0-2.0) 09/05/17 06:00 PT 11.6 SECONDS (9.4-12.5) 09/02/17 20:55 INR 1.02 (0.93-1.08) 09/02/17 20:55 APTT 30.5 Seconds (25.1-36.5) 09/02/17 20:55 Sodium 143 mmol/L (132-148) 09/05/17 06:00 Potassium 4.2 mmol/L (3.6-5.0) 09/05/17 06:00 Chloride 103 mmol/L (98-107) 09/05/17 06:00 Carbon Dioxide 33 mmol/L (21-33) 09/05/17 06:00 Anion Gap 11 (10-20) 09/05/17 06:00 BUN 22 mg/dL (7-21) H 09/05/17 06:00 Creatinine 0.8 mg/dl (0.7-1.2) 09/05/17 06:00 Est GFR ( Amer) > 60 09/05/17 06:00 Est GFR (Non-Af Amer) > 60 09/05/17 06:00 POC Glucose (mg/dL) 97 mg/dL (65-110) 09/05/17 07:06 Random Glucose 106 mg/dL (70-110) 09/05/17 06:00 Hemoglobin A1c 6.7 % (4.2-6.5) H 09/02/17 20:55 Calcium 8.8 mg/dL (8.4-10.5) 09/05/17 06:00 Magnesium 2.1 mg/dL (1.7-2.2) 09/05/17 06:00 Total Bilirubin 0.4 mg/dL (0.2-1.3) 09/05/17 06:00 AST 20 U/L (14-36) 09/05/17 06:00 ALT 26 U/L (7-56) 09/05/17 06:00 Alkaline Phosphatase 62 U/L (38-126) 09/05/17 06:00 Lactate Dehydrogenase 476 U/L (333-699) 09/02/17 20:55 Total Creatine Kinase 36 U/L (35-230) 09/02/17 20:55 Troponin I < 0.01 ng/mL 09/02/17 20:55 NT-Pro-B Natriuret Pep 159 pg/mL (0-450) 09/02/17 20:55 Total Protein 6.1 g/dL (5.8-8.3) 09/05/17 06:00 Albumin 3.4 g/dL (3.0-4.8) 09/05/17 06:00 Globulin 2.8 gm/dL 09/05/17 06:00 Albumin/Globulin Ratio 1.2 (1.1-1.8) 09/05/17 06:00 Triglycerides 109 mg/dL (35-160) 09/02/17 20:55 Cholesterol 238 mg/dL (130-200) H 09/02/17 20:55 LDL Cholesterol Direct 138 mg/dL (0-129) H 09/02/17 20:55 HDL Cholesterol 75 mg/dL (29-60) H 09/02/17 20:55 TSH 3rd Generation 1.79 mIU/mL (0.46-4.68) 09/02/17 20:55 Urine Color Dark yellow (YELLOW) 09/03/17 01:10 Urine Appearance Sl cloudy (CLEAR) 09/03/17 01:10 Urine pH 6.0 (4.7-8.0) 09/03/17 01:10 Ur Specific [place] 1.010 (1.005-1.035) 09/03/17 01:10 Urine Protein Negative mg/dL (<30 mg/dL) 09/03/17 01:10 Urine Glucose (UA) Negative mg/dL (NEGATIVE) 09/03/17 01:10 Urine Ketones Negative mg/dL (NEGATIVE) 09/03/17 01:10 Urine Blood Trace-intact (NEGATIVE) H 09/03/17 01:10 Urine Nitrate Negative (NEGATIVE) 09/03/17 01:10 Urine Bilirubin Negative (NEGATIVE) 09/03/17 01:10 Urine Urobilinogen 0.2 E.U./dL (<1 E.U./dL) 09/03/17 01:10 Ur Leukocyte Esterase Small Candy/uL (NEGATIVE) H 09/03/17 01:10 Urine RBC 0 - 2 /hpf (0-2) 09/03/17 01:10 Urine WBC 1 - 3 /hpf (0-6) 09/03/17 01:10 Ur Epithelial Cells 3 - 4 /hpf (0-5) 09/03/17 01:10 Urine Bacteria Few (NEG) 09/03/17 01:10 Hyaline Casts 0 - 2 /hpf 09/03/17 01:10 Urine Other Mucus 09/03/17 01:10 Digoxin 0.6 ng/mL (0.8-2.0) L 09/05/17 06:00 Attending/Attestation - Attestation I have personally seen and examined this patient.: Yes I have fully participated in the care of the patient.: Yes I have reviewed all pertinent clinical information, including history, physical exam and plan: Yes Notes (Text): 09/05/17 18:12 87 year old female with past medical history of COPD, CHF, CAD, TIA, hypertension and diabetes who presented s/p fall and syncope. CT head showed small acute subarachnoid hemorrhage and small subdural hematoma. Aspirin was initially held. Repeat CT head showed no changes. Neurosurgery evaluation was appreciated; no acute intervention recommended. Neurosurgery cleared for aspirin to be resumed. She was also seen by cardiology and neurology. CTA showed thyroid nodule/mass for which she was recommended to follow up with her pmd. Neurology recommended for possible loop recorder for which she will follow up with cardiology. PT initially recommended TCU which she refused and also was not accepted. She ambulated well with PT follow up and they recommended home with services which was discussed with employment case manager. Garfield Antunez MD Hospitalist.
[2017-09-05 17:09] VITALS: BP 123/63; TEMP 98.9; O2SAT 96
--- NOTE | 2017-09-05 17:13 | PCM.EEG ---
Electroencephalogram Report - Electroencephalogram Report Procedure Date: 09/03/17 Interpretation: Indication: Syncope. Medications were reviewed. Technical: This is a digitally recorded electroencephalogram. The international 10-20 electrode placement system is used for scalp electrode placement. Eighteen channels of scalp EEG are recorded Another channel was used for for ECG. The data are stored digitally and reviewed in reformatted montages for optimal display. Background: Slow background with about 6-8 hertz theta to alpha activity was seen. Maximal over the posterior head region. These activities are symmetric on both sides. They attenuated with eye opening. Small amount of beta activities are seen. Description: No focal slowing was seen. No seizure like activity was observed during this recording. Patient entered into periods of drowsiness and light sleep. No abnormality was seen. Impression: Normal, but diffusely slightly slow awake and drowsy EEG. No focal slowing no seizure like activity was observed. Correlation with clinical findings is needed.
[2017-09-05 18:29] VITALS: PULSE 78
== END 2017-09-05 19:30 | disposition home or self-care (01) | DRG 83 ==
LOC: ED 20:43 → ERH 09-03 00:02 → 2RSO 09-03 01:03
PROVIDERS: ADMIT Hospitalist; ATTEND Internal Medicine
DX: S06.6X9A Traumatic subarachnoid hemorrhage with loss of consciousness of unspecified duration, initial encounter (principal); J44.1 Chronic obstructive pulmonary disease with (acute) exacerbation; S06.5X9A Traumatic subdural hemorrhage with loss of consciousness of unspecified duration, initial encounter; S01.111A Laceration without foreign body of right eyelid and periocular area, initial encounter; W18.30XA Fall on same level, unspecified, initial encounter; I11.0 Hypertensive heart disease with heart failure; E11.9 Type 2 diabetes mellitus without complications; E78.5 Hyperlipidemia, unspecified; I25.10 Atherosclerotic heart disease of native coronary artery without angina pectoris; I50.9 Heart failure, unspecified; E04.1 Nontoxic single thyroid nodule; I08.1 Rheumatic disorders of both mitral and tricuspid valves; I25.2 Old myocardial infarction; K21.9 Gastro-esophageal reflux disease without esophagitis; M19.90 Unspecified osteoarthritis, unspecified site; Z86.73 Personal history of transient ischemic attack (TIA), and cerebral infarction without residual deficits; Z87.01 Personal history of pneumonia (recurrent); Z87.891 Personal history of nicotine dependence